=== PATIENT | female | born 1960 | race Two or more races ===

== ENCOUNTER → 2020-07-29 | Outpatient (CLI) | payer OTHER ==
[2020-07-29 10:12] LABS: Basophils # (auto) 0 10 ^3/uL (0-0.2); Basophils % (auto) 0.5 % (0.0-2.0); Eosinophils # (auto) 0.1 10 ^3/uL (0-0.8); Eosinophils % (auto) 1.8 % (0.0-7.0); Hemoglobin 13.9 g/dL (12.2-16.2); Lymphocytes % (auto) 29.7 % (10.0-50.0); Mean Corpuscular Hgb Conc. 33.8 g/dL (32.0-36.0); Mean Corpuscular Volume 91.7 fL (80.0-100.0); Monocytes # (auto) 0.4 10 ^3/uL (0-1.3); Monocytes % (auto) 5.8 % (0.0-12.0); Neutrophils # (auto) 4.3 10 ^3/uL (1.6-8.6); Neutrophils % (auto) 62.2 % (37.0-80.0); Nucleated Red Blood Cells % 0.1 %; Platelet Count (auto) 331 10^3/uL (140-450); Red Blood Cells 4.48 10^6/uL (4.0-5.20); Red Cell Distribution Width 13.2 % (11.8-14.3); White Blood Cell 6.8 10^3/uL (4.4-10.8)
[2020-07-29 10:24] LABS: Urine Bacteria NONE SEEN /hpf (None Seen); Urine Blood Negative /uL (Negative); Urine Specific Gravity 1.018 (1.001-1.035); Urine WBC 1 /hpf (0 - 5)
[2020-07-29 10:44] LABS: Albumin 3.9 g/dL (3.4-5.0); Calcium 9.8 mg/dL (8.5-10.1); Potassium 3.9 mmol/L (3.5-5.1)
[2020-07-29 10:48] LABS: BUN/Creatinine Ratio 13.8; Bilirubin, Total 0.5 mg/dL (0.2-1.0)
== END | disposition home or self-care (01) ==
LOC: LAB 09:37
PROVIDERS: ATTEND Student in an Organized Health Care Education/Training Program
DX: Z12.11 Encounter for screening for malignant neoplasm of colon (principal); R73.9 Hyperglycemia, unspecified; E55.9 Vitamin D deficiency, unspecified
CPT/HCPCS: 36415; 80053; 80061; 81001; 82306; 83036; 84443; 85025

== ENCOUNTER 2023-05-04 04:29 | Emergency (ER) | payer OTHER ==
[~2023-05-04] VITALS: Ht 160 cm; Wt 175.0 kg
[2023-05-04 05:35] VITALS: BP 139/73; PULSE 98; RESP 18; TEMP 98.6; O2SAT 99
[2023-05-04] MEDS ORDERED: LORazepam 0.5 MG TAB PO ONE (06:00)
== END 2023-05-04 07:06 | disposition home or self-care (01) ==
LOC: EDBD 04:29 → ER 04:29
DX: G47.00 Insomnia, unspecified (principal); F41.9 Anxiety disorder, unspecified; F32.9 Major depressive disorder, single episode, unspecified; Z90.710 Acquired absence of both cervix and uterus

== ENCOUNTER → 2023-05-24 | Outpatient (CLI) | payer OTHER ==
[2023-05-24 10:09] LABS: Basophils # (auto) 0.1 10 ^3/uL (0-0.2); Basophils % (auto) 0.8 % (0.0-2.0); Eosinophils # (auto) 0.1 10 ^3/uL (0-0.8); Eosinophils % (auto) 0.8 % (0.0-7.0); Hematocrit 41.4 % (36.0-46.0); Hemoglobin 13.8 g/dL (12.2-16.2); Lymphocytes # (auto) 1.9 10 ^3/uL (0.4-5.4); Lymphocytes % (auto) 27.9 % (10.0-50.0); Mean Corpuscular Hemoglobin 30.8 pg (28.0-32.0); Mean Corpuscular Hgb Conc. 33.3 g/dL (32.0-36.0); Mean Corpuscular Volume 92.4 fL (80.0-100.0); Monocytes # (auto) 0.5 10 ^3/uL (0-1.3); Monocytes % (auto) 7.9 % (0.0-12.0); Neutrophils # (auto) 4.2 10 ^3/uL (1.6-8.6); Neutrophils % (auto) 62.6 % (37.0-80.0); Nucleated Red Blood Cells % 0.1 %; Red Blood Cells 4.48 10^6/uL (4.0-5.20); Red Cell Distribution Width 13.9 % (11.8-14.3); White Blood Cell 6.8 10^3/uL (4.4-10.8)
[2023-05-24 10:31] LABS: Urine Bacteria NONE SEEN /hpf (None Seen); Urine Blood TRACE /uL (Negative); Urine Clarity Clear (Clear); Urine Color Yellow (Yellow); Urine Protein, UAD Negative (Negative); Urine Specific Gravity 1.018 (1.001-1.035); Urine Urobilinogen Normal (Negative); Urine WBC 1 /hpf (0 - 5)
[2023-05-24 10:40] LABS: Alanine Aminotransferase 19 U/L (7-40); Albumin 4.9 g/dL (3.2-4.8); Alkaline Phosphatase 123 U/L (46-116); Anion Gap 4 (5-15); Aspartate Aminotransferase 18 U/L (13-40); BUN/Creatinine Ratio 15.7 (10.0-20.0); Blood Urea Nitrogen 11 mg/dL (9-23); Calcium 10.6 mg/dL (8.5-10.1); Carbon Dioxide 29 mmol/L (20-30); Chloride 101 mmol/L (98-107); Cholesterol 190 mg/dL (< 200); Glucose 100 mg/dL (74-106); HDL Cholesterol 47 mg/dL (40-59); LDL Cholesterol 128 mg/dL (< 100); Potassium 4.1 mmol/L (3.5-5.1); Sodium 134 mmol/L (136-145); Triglycerides 70 mg/dL (< 150)
[2023-05-24 10:41] LABS: Bilirubin, Total 0.6 mg/dL (0.2-1.0); Total Protein 7.8 g/dL (5.7-8.2)
== END | disposition home or self-care (01) ==
LOC: LAB 09:42
PROVIDERS: ATTEND Student in an Organized Health Care Education/Training Program
DX: Z12.11 Encounter for screening for malignant neoplasm of colon (principal); I10 Essential (primary) hypertension; R73.9 Hyperglycemia, unspecified
CPT/HCPCS: 36415; 80053; 80061; 81001; 82274; 83036; 84443; 85025

== ENCOUNTER → 2023-11-06 | Outpatient (CLI) | payer OTHER ==
[2023-11-06 08:19] LABS: Urine Bacteria None Seen /hpf (None Seen)
[2023-11-06 09:08] LABS: Basophils # (auto) 0 10 ^3/uL (0-0.2); Basophils % (auto) 0.6 % (0.0-2.0); Eosinophils # (auto) 0.1 10 ^3/uL (0-0.8); Eosinophils % (auto) 0.9 % (0.0-7.0); Hematocrit 37.8 % (36.0-46.0); Hemoglobin 12.9 g/dL (12.2-16.2); Lymphocytes # (auto) 2.3 10 ^3/uL (0.4-5.4); Lymphocytes % (auto) 33.2 % (10.0-50.0); Mean Corpuscular Hemoglobin 31.4 pg (28.0-32.0); Mean Corpuscular Volume 92.3 fL (80.0-100.0); Monocytes # (auto) 0.5 10 ^3/uL (0-1.3); Monocytes % (auto) 6.6 % (0.0-12.0); Neutrophils % (auto) 58.7 % (37.0-80.0); Red Blood Cells 4.09 10^6/uL (4.0-5.20); Red Cell Distribution Width 13.2 % (11.8-14.3); White Blood Cell 6.9 10^3/uL (4.4-10.8)
[2023-11-06 09:33] LABS: Urine Blood Negative /uL (Negative); Urine Clarity Clear (Clear); Urine Color Light-Yellow (Yellow); Urine Hyaline Cast FEW /lpf (0 - 2); Urine Protein, UAD Negative (Negative); Urine Specific Gravity 1.022 (1.001-1.035); Urine Urobilinogen Normal (Negative); Urine WBC 7 /hpf (0 - 5); Urine pH 5.5 (5.0-9.0)
[2023-11-06 09:40] LABS: Alanine Aminotransferase 16 U/L (7-40); Albumin 4.4 g/dL (3.2-4.8); Alkaline Phosphatase 106 U/L (46-116); Anion Gap 5 (5-15); Aspartate Aminotransferase 11 U/L (13-40); BUN/Creatinine Ratio 18.9 (10.0-20.0); Bilirubin, Total 0.7 mg/dL (0.2-1.0); Blood Urea Nitrogen 14 mg/dL (9-23); Carbon Dioxide 27 mmol/L (20-30); Chloride 105 mmol/L (98-107); Glucose 97 mg/dL (74-106); Sodium 137 mmol/L (136-145); Total Protein 6.9 g/dL (5.7-8.2)
== END | disposition home or self-care (01) ==
LOC: LAB 08:11
PROVIDERS: ATTEND Student in an Organized Health Care Education/Training Program
DX: I10 Essential (primary) hypertension (principal)
CPT/HCPCS: 36415; 80053; 81001; 84443; 85025

== ENCOUNTER → 2024-01-01 | Outpatient (CLI) | payer OTHER ==
[2024-01-01 15:47] LABS: Alanine Aminotransferase 17 U/L (7-40); Alkaline Phosphatase 116 U/L (46-116); Anion Gap 5 (5-15); Aspartate Aminotransferase 14 U/L (13-40); BUN/Creatinine Ratio 11.1 (10.0-20.0); Bilirubin, Total 0.4 mg/dL (0.2-1.0); Blood Urea Nitrogen 7 mg/dL (9-23); Calcium 10.5 mg/dL (8.7-10.4); Carbon Dioxide 28 mmol/L (20-30); Chloride 97 mmol/L (98-107); Glucose 94 mg/dL (74-106); Potassium 4.2 mmol/L (3.5-5.1); Sodium 130 mmol/L (136-145); Total Protein 7.9 g/dL (5.7-8.2)
[2024-01-01 17:45] LABS: Follicle Stimulating Hormone 74.86 IU/L (SEE BELOW); Free T4 (Free Thyroxine) 1.45 ng/dL (0.89-1.76)
[2024-01-01 17:46] LABS: Leuteinizing Hormone 32.7 IU/L; Prolactin 3.87 ng/mL (2.8-29.2)
== END | disposition home or self-care (01) ==
LOC: LAB 13:58
PROVIDERS: ATTEND Obstetrics & Gynecology
DX: R87.1 Abnormal level of hormones in specimens from female genital organs (principal)
CPT/HCPCS: 36415; 80053; 82670; 83001; 83002; 84146; 84439; 84443

== ENCOUNTER 2024-01-23 05:50 | Emergency (ER) | payer OTHER ==
[~2024-01-23] VITALS: Ht 160 cm; Wt 66.8 kg
[2024-01-23 07:01] LABS: Basophils # (auto) 0.1 10 ^3/uL (0-0.2); Basophils % (auto) 0.8 % (0.0-2.0); Eosinophils # (auto) 0 10 ^3/uL (0-0.8); Eosinophils % (auto) 0.5 % (0.0-7.0); Hematocrit 38.3 % (36.0-46.0); Hemoglobin 13.3 g/dL (12.2-16.2); Lymphocytes # (auto) 1.8 10 ^3/uL (0.4-5.4); Lymphocytes % (auto) 25.9 % (10.0-50.0); Mean Corpuscular Hemoglobin 32.6 pg (28.0-32.0); Mean Corpuscular Hgb Conc. 34.7 g/dL (32.0-36.0); Mean Corpuscular Volume 93.9 fL (80.0-100.0); Monocytes # (auto) 0.6 10 ^3/uL (0-1.3); Monocytes % (auto) 8.1 % (0.0-12.0); Neutrophils # (auto) 4.6 10 ^3/uL (1.6-8.6); Neutrophils % (auto) 64.7 % (37.0-80.0); Nucleated Red Blood Cells % 0.1 %; Platelet Count (auto) 291 10^3/uL (140-450); Red Blood Cells 4.08 10^6/uL (4.0-5.20); Red Cell Distribution Width 13.3 % (11.8-14.3); White Blood Cell 7.1 10^3/uL (4.4-10.8)
[2024-01-23 07:19] LABS: Alanine Aminotransferase 12 U/L (7-40); Alkaline Phosphatase 104 U/L (46-116); Anion Gap 6 (5-15); BUN/Creatinine Ratio 14.1 (10.0-20.0); Blood Urea Nitrogen 9 mg/dL (9-23); Carbon Dioxide 25 mmol/L (20-31); Chloride 103 mmol/L (98-107); Glucose 93 mg/dL (74-106); Potassium 3.9 mmol/L (3.5-5.1); Sodium 134 mmol/L (136-145)
[2024-01-23 07:20] LABS: Albumin 4.4 g/dL (3.2-4.8); Aspartate Aminotransferase < 8 U/L (13-40); Bilirubin, Total 0.7 mg/dL (0.2-1.0); Total Protein 6.9 g/dL (5.7-8.2)
[2024-01-23 07:26] VITALS: PULSE 87; RESP 18; O2SAT 98
[2024-01-23 07:35] LABS: Urine Bacteria None Seen /hpf (None Seen)
[2024-01-23 07:53] LABS: Urine Blood Negative /uL (Negative); Urine Clarity Clear (Clear); Urine Color Light-Yellow (Yellow); Urine Protein, UAD Negative (Negative); Urine Specific Gravity 1.015 (1.001-1.035); Urine Urobilinogen Normal (Negative); Urine WBC 1 /hpf (0 - 5)
[2024-01-23 08:37] LABS: Lipase 40 U/L (12-53)
[2024-01-23 09:00] VITALS: BP 145/81; PULSE 101; RESP 14; O2SAT 98
[2024-01-23] MEDS ORDERED: MAGN100T6 OR (09:00)
== END 2024-01-23 09:00 | disposition home or self-care (01) ==
LOC: ER 05:50
DX: K59.00 Constipation, unspecified (principal); R10.9 Unspecified abdominal pain; F41.9 Anxiety disorder, unspecified; F32.A Depression, unspecified; Z90.710 Acquired absence of both cervix and uterus
CPT/HCPCS: 36415; 74176; 80053; 81001; 83690; 85025

== ENCOUNTER 2024-02-25 02:38 | Inpatient (IN) | payer OTHER ==
[~2024-02-25] VITALS: Ht 160 cm; Wt 65.0 kg
[~2024-02-25 02:38] MED LIST: MAGN100T6 OR
--- NOTE | 2024-02-25 03:02 | ED.PDOC ---
GI ASSESSMENT HPI Comments 63-year-old female who came to ER due to abdominal pain. Patient states she has been having issues with her abdomen. States that she feels like there is no digestion going on. Cant member the last time she had a bowel movement, possibly over a week. She denies any nausea or vomiting. Chief Complaint: Abdominal pain Time Seen by MD: 03:01 Primary Care Provider: HUNTLEY Reviewed Notes: Nurses Notes Allergies: Coded Allergies: NO KNOWN ALLERGIES (Unverified , 05/04/23) Home Meds Active Scripts Magnesium Citrate (MAGNESIUM CITRATE) 100 Mg Tab, 100 MG OR BID for 3 Days, #6 TAB Prov:KRISTY MENA MD 01/23/24 Information Source: Patient Mode of Arrival: Ambulatory Timing: Weeks Duration: Intermittent Prehospital treatment: None Quality: Aching Vomitus: None Stool: Impaction Severity: Moderate Recent: None Recent Hx of: Abdominal Surgery Pain Location: None Modifying Factors: Nothing Associated sign and symptoms: Constipation Past Medical History PAST MEDICAL HISTORY: Anxiety, Depression Surgical History: Appendectomy, Hysterectomy 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: 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 all 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 LEADER Hx Family History Family History: Reviewed,noncontributory to illness, Unknown Social History Smoker: Non-Smoker Alcohol: Denies ETOH Use Drugs: Denies Drug Use Lives In: Home Constitutional: denies: chills, diaphoresis, fatigue, fever, malaise, sweats, weakness, others EENTM: denies: blurred vision, double vision, ear bleeding, ear discharge, ear drainage, ear pain, ear ringing, eye pain, eye redness, hearing loss, mouth pain, mouth swelling, nasal discharge, nose bleeding, nose congestion, nose pain, photophobia, tearing, throat pain, throat swelling, voice changes, others Respiratory: denies: cough, hemoptysis, orthopnea, SOB at rest, shortness of breath, SOB with excertion, stridor, wheezing, others Cardiovascular: denies: chest pain, dizzy spells, diaphoresis, Dyspnea on exertion, edema, irregular heart beat, left arm pain, lightheadedness, palpitations, PND, syncope, others Gastrointestinal: reports: abdominal pain, constipated; denies: abdomen distended, blood streaked bowels, diarrhea, dysphagia, difficulty swallowing, hematemesis, melena, nausea, poor appetite, poor fluid intake, rectal bleeding, rectal pain, vomiting, others Genitourinary: denies: abnormal vagina bleeding, burning, dyspareunia, dysuria, flank pain, frequency, hematuria, incontinence, pain, , vagina discharge, urgency, others Neurological: denies: dizziness, fainting, headache, left sided numbness, left sided weakness, numbness, paresthesia, pre-existing deficit, right sided numbness, right sided weakness, seizure, speech problems, tingling, tremors, weakness, others Musculoskeletal: denies: back pain, gout, joint pain, joint swelling, muscle pain, muscle stiffness, neck pain, others Integumetry: denies: bruises, change in color, change in hair/nails, dryness, laceration, lesions, lumps, rash, wounds, others Allergic/Immunocompromised: denies: Difficulty Healing, Frequent Infections, Hives, Itching, others Hematologic/Lymphatic: denies: anemia, blood clots, easy bleeding, easy bruising, swollen glands, others Endocrine: denies: excessive hunger, excessive sweating, excessive thirst, excessive urination, flushing, intolerance to cold, intolerance to heat, unexplained weight gain, unexplained weight loss, others Psychiatric: denies: anxiety, bipolar disorder, depression, hopeless, panic disorder, schizophrenia, sleepless, suicidal, others Physical Exam General Appearance: Moderate Distress, Normal HEENT: Normal ENT Inspection, Pharynx Normal, TMs Normal Neck: Full Range of Motion, Non-Tender, Normal, Normal Inspection Respiratory: Chest Non-Tender, Lungs Clear, No Accessory Muscle Use, No Respiratory Distress, Normal Breath Sounds Cardiovascular: No Edema, No JVD, No Murmur, No Gallop, Normal Peripheral Pulses, Regular Rate/Rhythm Breast Exam: Deferred Gastrointestinal: No Organomegaly, Non Tender, No Pulsatile Mass, Normal Bowel Sounds, Soft Genitalia: Deferred Pelvic: Deferred Rectal: Deferred Extremities: No calf tenderness, Normal capillary refill, Normal inspection, N ormal range of motion, Non-tender, No pedal edema Musculoskeletal : Apperance: Normal Neurologic: Alert, 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 Was a procedure done?: No GI differential Dx Differential Diagnosis: Constipation, Diverticular disease, Esophagitis, Gastritis/PUD, Gastroenteritis, Inflammatory BD, UTI, Urolithiasis, Electrolyte Imbalance X-Ray, Labs, Meds, VS Vital Signs Date Time Temp Pulse Resp B/P (MAP) Pulse Ox O2 Delivery O2 Flow Rate FiO2 02/25/24 06:00 88 17 115/56 (75) 98 02/25/24 04:42 86 10 98 Room Air* 0 21 02/25/24 04:41 97.9 86 10 131/73 (92) 98 97.9 02/25/24 02:43 98.3 93 16 135/78 (97) 98 Lab Test 02/25/24 03:05 02/25/24 02:53 Range/Units White Blood Count 7.5 4.4-10.8 10^3/uL Red Blood Count 4.43 4.0-5.20 10^6/uL Hemoglobin 14.2 12.2-16.2 g/dL Hematocrit 40.9 36.0-46.0 % Mean Corpuscular Volume 92.4 80.0-100.0 fL Mean Corpuscular Hemoglobin 32.0 28.0-32.0 pg Mean Corpuscular Hemoglobin Concent 34.6 32.0-36.0 g/dL Red Cell Distribution Width 13.1 11.8-14.3 % Platelet Count 258 140-450 10^3/uL Mean Platelet Volume 8.2 6.9-10.8 fL Neutrophils (%) (Auto) 57.8 37.0-80.0 % Lymphocytes (%) (Auto) 33.8 10.0-50.0 % Monocytes (%) (Auto) 7.2 0.0-12.0 % Eosinophils (%) (Auto) 0.5 0.0-7.0 % Basophils (%) (Auto) 0.7 0.0-2.0 % Neutrophils # (Auto) 4.3 1.6-8.6 10 ^3/uL Lymphocytes # (Auto) 2.5 0.4-5.4 10 ^3/uL Monocytes # (Auto) 0.5 0-1.3 10 ^3/uL Eosinophils # (Auto) 0 0-0.8 10 ^3/uL Basophils # (Auto) 0.1 0-0.2 10 ^3/uL Nucleated Red Blood Cells 0.0 % Sodium Level 133 L 136-145 mmol/L Potassium Level 3.5 3.5-5.1 mmol/L Chloride Level 101 98-107 mmol/L Carbon Dioxide Level 25 20-31 mmol/L Anion Gap 7 5-15 Blood Urea Nitrogen < 5 L 9-23 mg/dL Creatinine 0.60 0.550-1.02 mg/dL Glomerular Filtration Rate Calc 101 >90 mL/min BUN/Creatinine Ratio 8.3 L 10.0-20.0 Serum Glucose 92 74-106 mg/dL Calcium Level 10.5 H 8.7-10.4 mg/dL Urine Color Light-yellow Yellow Urine Clarity Clear Clear Urine pH 6.0 5.0-9.0 Urine Specific [place] 1.008 1.001-1.035 Urine Protein Negative Negative Urine Ketones Trace Negative Urine Blood Negative Negative /uL Urine Nitrite Negative Negative Urine Bilirubin Negative Negative Urine Urobilinogen Normal Negative mg/dL Urine Leukocyte Esterase Trace Negative /uL Urine RBC <1 0 - 4 /hpf Urine WBC 2 0 - 5 /hpf Urine Squamous Epithelial Cells Few <5 /hpf Urine Bacteria None seen None Seen /hpf Urine Glucose Normal Normal mg/dL Patient alert. Complaining of abdominal pain. Vitals stable. Answering all questions. UA shows mild UTI. Calcium level is elevated. Continues to have abdominal pain. Reviewed her previous visit. Establish intravenous access. Was given fluids. Was given pain medication. Explained to the patient. Continue monitoring tech. Was given Rocephin. Was given Zofran. Time of 1ST Reevaluation: 02:57 Reevaluation 1ST: Unchanged Patient Education/Counseling: Diagnosis, Treatment Family Education/Counseling: No Family Present Departure 1 Departure Time of Disposition: 06:12 Impression: Primary Impression: Acute abdominal pain Additional Impressions: Hypercalcemia Urinary tract infection Qualified Codes: N30.00 - Acute cystitis without hematuria Constipation Qualified Codes: K59.01 - Slow transit constipation Disposition: ADMITTED INPATIENT Admit to: Med Surg Condition: Guarded Critical Care Note Critical Care Time?: No Stability Stability form required: No Heart Score Heart Score: Heart Score Response (Comments) Value History N/A 0 EKG N/A 0 Age N/A 0 Risk Factors N/A 0 Troponin N/A 0 Total 0 I personally scribed for HAM REYNOLDS MD ([email or web address]) on 02/25/24 at 03:02. Electronically submitted by Tereso Tobias ([email or web address]). HAM REYNOLDS MD Feb 25, 2024 03:02 IOANA STERN MD Feb 25, 2024 06:11
[2024-02-25 03:22] LABS: Urine Bacteria None Seen /hpf (None Seen)
[2024-02-25 03:25] LABS: Basophils # (auto) 0.1 10 ^3/uL (0-0.2); Basophils % (auto) 0.7 % (0.0-2.0); Eosinophils # (auto) 0 10 ^3/uL (0-0.8); Eosinophils % (auto) 0.5 % (0.0-7.0); Hematocrit 40.9 % (36.0-46.0); Hemoglobin 14.2 g/dL (12.2-16.2); Lymphocytes # (auto) 2.5 10 ^3/uL (0.4-5.4); Lymphocytes % (auto) 33.8 % (10.0-50.0); Mean Corpuscular Hgb Conc. 34.6 g/dL (32.0-36.0); Mean Corpuscular Volume 92.4 fL (80.0-100.0); Monocytes # (auto) 0.5 10 ^3/uL (0-1.3); Monocytes % (auto) 7.2 % (0.0-12.0); Neutrophils # (auto) 4.3 10 ^3/uL (1.6-8.6); Neutrophils % (auto) 57.8 % (37.0-80.0); Platelet Count (auto) 258 10^3/uL (140-450); Red Blood Cells 4.43 10^6/uL (4.0-5.20); Red Cell Distribution Width 13.1 % (11.8-14.3); White Blood Cell 7.5 10^3/uL (4.4-10.8)
[2024-02-25] MEDS: IOHEXOL 300 MG/ML 100ML BOTTLE IJ ONE (03:28)
[2024-02-25 03:29] LABS: Chloride 101 mmol/L (98-107); Potassium 3.5 mmol/L (3.5-5.1); Sodium 133 mmol/L (136-145)
[2024-02-25 03:30] LABS: Anion Gap 7 (5-15); Calcium 10.5 mg/dL (8.7-10.4); Carbon Dioxide 25 mmol/L (20-31)
[2024-02-25 03:35] LABS: Glucose 92 mg/dL (74-106)
[2024-02-25 04:13] LABS: BUN/Creatinine Ratio 8.3 (10.0-20.0); Blood Urea Nitrogen < 5 mg/dL (9-23)
[2024-02-25 04:15] LABS: Urine Blood Negative /uL (Negative); Urine Clarity Clear (Clear); Urine Color Light-Yellow (Yellow); Urine Protein, UAD Negative (Negative); Urine Specific Gravity 1.008 (1.001-1.035); Urine Urobilinogen Normal (Negative); Urine WBC 2 /hpf (0 - 5)
[2024-02-25 04:42] VITALS: PULSE 86; RESP 10; O2SAT 98
--- NOTE | 2024-02-25 05:58 | DVH ---
Examination: ABPL CLINICAL INDICATION: abdominal pain COMPARISON: None. CONTRAST USED: None. TECHNIQUE: A plain CT study of the abdomen and pelvis is performed. The examination was performed w ith [address] scan done according to ALARA (As Low as Reasonably Achievable). Multiplana r reconstructions were obtained. FINDINGS: CT ABDOMEN: Lung Base: The evaluation of lung bases demonstrates no focal infiltrates or pleural effusion. Line ar fibrotic band in the anterior basal segment of bilateral lower lobes. Unenhanced Liver: Normal size liver with normal attenuation. No obvious focal lesion in liver. The re is no intrahepatic biliary radicle dilatation. Gallbladder appears unremarkable. No intraluminal pathology. The common bile duct is not dilated. Unenhanced Pancreas: The pancreas is normal in size and shape. No focal lesion is seen within. The peripancreatic fat-planes are normal. Unenhanced Spleen: The spleen is normal in size and does not show any focal abnormality. Retroperitoneum: Both adrenal glands are normal in size and morphology in this unenhanced CT scan. There is no significant retroperitoneal lymphadenopathy. The kidneys are normal in size. No renal calculus or hydronephrosis. Perinephric spaces are clear. An exophytic 5.2 x 4.1 cm cortical cyst from the left kidney lower pole. No obvious septations or c alcification within. Small 6 mm cortical cyst from the right kidney lower pole with wall calcificati on. Vessels: Aorta, IVC and the mesenteric vessels cannot be commented in this unenhanced CT scan. Stomach and Bowel: The bowel loops are unremarkable. There is no ascites. Skeletal System: Mild osteopenia. Moderate degenerative changes in the sacroiliac, superolateral hi p joint and in the lumbar spine. Multilevel degenerative reduction in disc space and facet arthropat hy from L3-L4 through L5-S1 level. No acute osseous abnormality or focal osseous lesion. CT PELVIS: Appendix: Appendix is not discretely visualized. No features of acute appendicitis. Colon: [id number]-[id number] amount of fecal matter in the large bowel loops. Scattered diverticulosis of the descending and sigmoid colon without evidence of diverticulitis. Bladder: The urinary bladder is unremarkable. Post-hysterectomy status. No adnexal mass. No pelvic lymphadenopathy is identified. No abnormal fluid collection is seen. IMPRESSION: 1. No acute intra-abdominal pathology. No abdominal fat stranding or collection. 2. Appendix is not visualized. No features of acute appendicitis. Gallbladder and pancreas appear unremarkable. No evidence of renal or ureteric calculus. An exophytic 5.2 x 4.1 cm cortical cyst fr om the left kidney lower pole. No obvious septations or calcification within. Small 6 mm cortical c yst from the right kidney lower pole with wall calcification. Suggest further evaluation with postco ntrast scan. 3. Rcnqzpcy-nx-omnco amount of fecal matter in the large bowel loops. Scattered diverticulosis of t he descending and sigmoid colon without evidence of diverticulitis. Small bowel loops appear unremar kable. 4. Post-hysterectomy status. No adnexal mass. 5. Degenerative changes in the sacroiliac, superolateral hip joint and multilevel severe degenerativ e changes in the lumbar spine. No acute osseous abnormality or destructive bony pathology. Electronically Signed 02/25/2024 05:50 Jorge Hutchinson
[2024-02-25] MEDS: ONDANSETRON HCL 4 MG/2 ML VIAL IV ONE (06:42)
[2024-02-25] MEDS: MORPHINE SULFATE INJ 2 MG/ml SYRG IV ONE (06:42)
[2024-02-25] MEDS: SODIUM CHLORIDE 0.9% 1,000 ML IV ONE (06:43)
[2024-02-25] MEDS: cefTRIAXone 1GM/50ML D5W 50 ML IV ONE (06:46)
[2024-02-25 07:59] VITALS: PULSE 91; RESP 15; O2SAT 99
[2024-02-25] MEDS ORDERED: ACETAMINOPHEN 325 MG TAB PO PRN (10:00)
[2024-02-25] MEDS ORDERED: LORazepam 0.5 MG TAB PO PRN (10:00)
[2024-02-25] MEDS ORDERED: TEMAZEPAM 15 MG CAP PO PRN (10:00)
[2024-02-25] MEDS: LACTULOSE 10g/15ml SOLN 473ML PR ONE (10:00)
[2024-02-25] MEDS ORDERED: ONDANSETRON HCL 4 MG/2 ML VIAL IV PRN (10:00)
--- NOTE | 2024-02-25 10:57 | DVHHP2 ---
History of Present Illness Reason for Visit: abdominal pain History of Present Illness 63 yo female with multiple complaints over the course of month patient seems mildly confused with complaints in terms of when they started or occurred or if they are related most pressing matter is complaints of stomach pain and inability to properly digest food stating decreased appetite abdominal pain and distention and the inability to defecate for the past week patient states weakness will be admitted and managed for further evaluation Cardiovascular: HTN GI: Constipation, Diverticulosis Review of Systems Constitutional: Yes: Weakness, Malaise; No: Fever, Chills, Sweats, Other Eyes: No: Pain, Vision change, Conjunctivae inflammation, Eyelid inflammation, Other, Redness ENT: No: Ear pain, Ear discharge, Nose pain, Nose discharge, Nose congestion, Mouth pain, Mouth swelling, Throat pain, Throat swelling, Other Respiratory: No: Cough, Dry, Shortness of breath, SOB with excertion, Wheezing, Hemoptysis, Pleuritic Pain, Sputum, Wheezing, Other Cardiovascular: No: Chest Pain, Palpitations, Orthopnea, Paroxysmal Noc. Dyspnea, Edema, Lt Headedness, Other Gastrointestinal: Abdominal Pain, Constipation; No: Nausea, Vomiting, Diarrhea, Melena, Hematochezia, Other Genitourinary: No Dysuria, No Frequency, No Incontinence, No Hematuria, No Retention, No Other Musculoskeletal: No: other, neck pain, shoulder pain, arm pain, back pain, hand pain, leg pain, foot pain Skin: No: Rash, Lesions, Jaundice, Bruising, Other Neurological: Weakness; No: Numbness, Incoordination, Change in speech, Confusion, Seizures, Other Allergies: Coded Allergies: Codeine (Verified Allergy, Intermediate, throat numbness, 02/25/24) Sulfa Antibiotics (Verified Allergy, Intermediate, hives, 02/25/24) Iodine (Verified Allergy, Unknown, 02/25/24) IV contrast pt stated makes her not feel well Medications Current Medications Medications Dose Ordered Sig/Francisco Route Start Time Stop Time Status Last Admin Dose Admin Metronidazole 100 ml @ 100 mls/hr Q12HR IV 02/25/24 10:00 Sodium Chloride 2,000 ml @ 1,000 mls/hr Q2H IV 02/25/24 10:00 Lactulose 30 ml Q8HR PO 02/25/24 14:00 Lorazepam 0.5 mg Q6HP PRN PO 02/25/24 10:00 Al Hydrox/Mg Hydrox/Simethicone 30 ml Q6HP PRN PO 02/25/24 10:00 Acetaminophen 650 mg Q6HP PRN PO 02/25/24 10:00 Temazepam 15 mg QHSP PRN PO 02/25/24 10:00 Ondansetron HCl 4 mg Q4HP PRN IV 02/25/24 10:00 Exam Vital Signs Vital Signs Date Time Temp Pulse Resp B/P (MAP) Pulse Ox O2 Delivery O2 Flow Rate FiO2 02/25/24 09:30 89 18 115/58 (77) 98 02/25/24 07:59 Room Air* 0 21 02/25/24 07:30 98.3 98.3 General Appearance: Alert, Oriented X3 HEENT: Atraumatic, PERRLA Respiratory: Clear to auscultation, Normal air movement Cardiovascular: Regular rate, Normal S1, Normal S2 Abdominal: Other (decreased bowel sounds ) Extremities: No clubbing, No cyanosis Skin: No rashes, No breakdown Neuro: Normal gait, Normal speech Psych/Mental Status: Other (anxious sleep deprived ) Labs/Xrays Labs Test 02/25/24 03:05 02/25/24 02:53 Range/Units White Blood Count 7.5 4.4-10.8 10^3/uL Red Blood Count 4.43 4.0-5.20 10^6/uL Hemoglobin 14.2 12.2-16.2 g/dL Hematocrit 40.9 36.0-46.0 % Mean Corpuscular Volume 92.4 80.0-100.0 fL Mean Corpuscular Hemoglobin 32.0 28.0-32.0 pg Mean Corpuscular Hemoglobin Concent 34.6 32.0-36.0 g/dL Red Cell Distribution Width 13.1 11.8-14.3 % Platelet Count 258 140-450 10^3/uL Mean Platelet Volume 8.2 6.9-10.8 fL Neutrophils (%) (Auto) 57.8 37.0-80.0 % Lymphocytes (%) (Auto) 33.8 10.0-50.0 % Monocytes (%) (Auto) 7.2 0.0-12.0 % Eosinophils (%) (Auto) 0.5 0.0-7.0 % Basophils (%) (Auto) 0.7 0.0-2.0 % Neutrophils # (Auto) 4.3 1.6-8.6 10 ^3/uL Lymphocytes # (Auto) 2.5 0.4-5.4 10 ^3/uL Monocytes # (Auto) 0.5 0-1.3 10 ^3/uL Eosinophils # (Auto) 0 0-0.8 10 ^3/uL Basophils # (Auto) 0.1 0-0.2 10 ^3/uL Nucleated Red Blood Cells 0.0 % Sodium Level 133 L 136-145 mmol/L Potassium Level 3.5 3.5-5.1 mmol/L Chloride Level 101 98-107 mmol/L Carbon Dioxide Level 25 20-31 mmol/L Anion Gap 7 5-15 Blood Urea Nitrogen < 5 L 9-23 mg/dL Creatinine 0.60 0.550-1.02 mg/dL Glomerular Filtration Rate Calc 101 >90 mL/min BUN/Creatinine Ratio 8.3 L 10.0-20.0 Serum Glucose 92 74-106 mg/dL Calcium Level 10.5 H 8.7-10.4 mg/dL Urine Color Light-yellow Yellow Urine Clarity Clear Clear Urine pH 6.0 5.0-9.0 Urine Specific [place] 1.008 1.001-1.035 Urine Protein Negative Negative Urine Ketones Trace Negative Urine Blood Negative Negative /uL Urine Nitrite Negative Negative Urine Bilirubin Negative Negative Urine Urobilinogen Normal Negative mg/dL Urine Leukocyte Esterase Trace Negative /uL Urine RBC <1 0 - 4 /hpf Urine WBC 2 0 - 5 /hpf Urine Squamous Epithelial Cells Few <5 /hpf Urine Bacteria None seen None Seen /hpf Urine Glucose Normal Normal mg/dL Assessment/Plan Assessment/Plan Admit Med/Surg Abdominal Pain constipation CT scan Large fecal burden possible impaction lactulose q6h until liquid stools lactulose enema one time recommended patient refused hyponatremia noted IV fluids hydration appears nonsurgical at this time monitor for bowel movements and improvements suspected just impaction possible need for colonoscopy outpatient as patients age and lack of memory rule out cancer based possibilities outpatient UTI mild iv hydration IV abx Plan discussed with: Patient My Orders Orders - BRANDYN DUNHAM MD Procedure Category Date Status Time Metronidazole PHA 02/25/24 In Process 500mg/100ml (Flagyl 10:00 Sodium Chloride 0.9% PHA 02/25/24 In Process 10:00 Lactulose Oral PHA 02/25/24 In Process 14:00 Admit ADMIT 02/25/24 Transmitted 09:48 Code Status CODE 02/25/24 Transmitted 09:48 Vital Signs [facility] 02/25/24 In Process 09:48 Review Orders With [facility] 02/25/24 In Process Adm. 09:48 Lorazepam Tablet [facility] 02/25/24 In Process (Ativan Tablet) 10:00 Alum & Mag PHA 02/25/24 In Process Hydrox-Simethicone 10:00 Acetaminophen Tablet [facility] 02/25/24 In Process (Tylenol Tablet) 10:00 Temazepam (Restoril) [facility] 02/25/24 In Process 10:00 Notify Md Of Changes [facility] 02/25/24 In Process From Base 09:48 Advance Directive [facility] 02/25/24 In Process 09:48 Basic Metabolic Panel LAB 02/26/24 Verified 04:00 Complete Blood Count LAB 02/26/24 Verified 04:00 Patient Condition ORDERS 02/25/24 Transmitted 09:48 Allergies [facility] 02/25/24 In Process 09:48 Ondansetron Hcl [facility] 02/25/24 In Process (Zofran) 10:00 Notify Md Of Changes [facility] 02/25/24 In Process From Base 09:48 Problem List: (1) Insomnia (2) Anxiety (3) Abdominal pain (4) Hypercalcemia (5) Urinary tract infection (6) Acute abdominal pain (7) Constipation Date of Service: Feb 25, 2024 Billing Provider: BRANDYN DUNHAM MD Common Visit Codes: 80409-[id number] INP/OBS CARE (HIGH) BRANDYN DUNHAM MD Feb 25, 2024 10:57
[2024-02-25] MEDS: SODIUM CHLORIDE 0.9% 2,000 ML IV SCH (11:41)
[2024-02-25] MEDS: metroNIDAZOLE 500MG/100ML 100 ML IV SCH (11:41)
[2024-02-25] MEDS: LACTULOSE 20Gm/30ML SOLN PO SCH (14:15)
[2024-02-25 15:39] VITALS: PULSE 83; RESP 18; O2SAT 97
[2024-02-25 16:48] VITALS: BP 127/70; PULSE 83; RESP 18; TEMP 98.3; O2SAT 97
[2024-02-25] MEDS: SODIUM CHLORIDE 0.9% 1,000 ML IV SCH (20:00)
[2024-02-25] MEDS: MAALOX PLUS or MAALOX 30 ML PO PRN (20:45)
[2024-02-25 21:00] VITALS: BP 125/71; PULSE 86; RESP 18; TEMP 98.3; O2SAT 98
[2024-02-26 00:46] VITALS: BP 108/53; PULSE 71; RESP 17; TEMP 97.8; O2SAT 99
[2024-02-26 04:55] VITALS: BP 110/73; PULSE 90; RESP 18; TEMP 98; O2SAT 97
[2024-02-26 09:46] VITALS: BP 131/76; PULSE 89; RESP 17; TEMP 98; O2SAT 97
--- NOTE | 2024-02-26 11:36 | DVHPN2 ---
Subjective The patient seen and examined at bedside. Still complaint of abdominal pain. Reviewed: Care Plan, H&P, Labs, Medications, Previous Orders, Radiology Changes from previous H/P or p: No Changes Eyes: No Pain, No Vision change, No Conjunctivae inflammation, No Eyelid inflammation, No Other, No Redness ENT: No Ear pain, No Ear discharge, No Nose pain, No Nose discharge, No Nose congestion, No Mouth pain, No Mouth swelling, No Throat pain, No Throat swelling, No Other Cardiovascular: No Chest Pain, No Palpitations, No Orthopnea, No Paroxysmal Noc. Dyspnea, No Edema, No Lt Headedness, No Other Respiratory: No Cough, No Dry, No Shortness of breath, No SOB with excertion, No Wheezing, No Hemoptysis, No Pleuritic Pain, No Sputum, No Other Gastrointestinal: No Nausea, No Vomiting; Abdominal Pain; No Diarrhea; C onstipation; No Melena, No Hematochezia, No Other Genitourinary: No Dysuria, No Frequency, No Incontinence, No Hematuria, No Retention, No Other Musculoskeletal: No other, No neck pain, No shoulder pain, No arm pain, No back pain, No hand pain, No leg pain, No foot pain Skin: No Rash, No Lesions, No Jaundice, No Bruising, No Other Objective Vitals Vital Signs Date Time Temp Pulse Resp B/P (MAP) Pulse Ox O2 Delivery O2 Flow Rate FiO2 02/26/24 09:46 98.0 89 17 131/76 (94) 97 98.0 02/25/24 20:00 Room Air* 0 21 Intake/Output Intake and Output 02/26/24 07:00 Intake Total 4080 ml Balance 4080 ml Intake Oral 900 ml IV Total 3180 ml # Voids 4 # Bowel Movements 1 General Appearance: Alert, Oriented X3, Cooperative, No acute distress HEENT: Atraumatic, PERRLA, EOMI, Mucous membr. moist/pink Neck: Supple Lungs: Clear to auscultation, Normal air movement Cardiovascular: Regular rate, Normal S1, Normal S2, No murmurs, Gallops, Rubs Abdomen: Normal bowel sounds, Soft, No tenderness Neuro: Cranial nerves 3-12 NL Psych/Mental Status: Mental status NL Medications Current Medications Medications Dose Ordered Sig/Francisco Route Start Time Stop Time Status Last Admin Dose Admin Metronidazole 100 ml @ 100 mls/hr Q12HR IV 02/25/24 10:00 02/26/24 09:46 100 MLS/HR Sodium Chloride 2,000 ml @ 1,000 mls/hr Q2H IV 02/25/24 10:00 Hold 02/25/24 13:04 1,000 MLS/HR Lactulose 30 ml Q8HR PO 02/25/24 14:00 02/26/24 05:29 30 ML Lorazepam 0.5 mg Q6HP PRN PO 02/25/24 10:00 Al Hydrox/Mg Hydrox/Simethicone 30 ml Q6HP PRN PO 02/25/24 10:00 02/25/24 20:45 30 ML Acetaminophen 650 mg Q6HP PRN PO 02/25/24 10:00 Temazepam 15 mg QHSP PRN PO 02/25/24 10:00 Ondansetron HCl 4 mg Q4HP PRN IV 02/25/24 10:00 Sodium Chloride 1,000 ml @ 60 mls/hr [id number] IV 02/25/24 18:00 02/25/24 22:19 60 MLS/HR Laboratory Results Laboratory Tests 02/25/24 03:05 Urinalysis Test 02/25/24 02:53 Urine Color Light-yellow (Yellow) Urine Clarity Clear (Clear) Urine pH 6.0 (5.0-9.0) Urine Specific [place] 1.008 (1.001-1.035) Urine Protein Negative (Negative) Urine Ketones Trace (Negative) Urine Blood Negative /uL (Negative) Urine Nitrite Negative (Negative) Urine Bilirubin Negative (Negative) Urine Urobilinogen Normal mg/dL (Negative) Urine Leukocyte Esterase Trace /uL (Negative) Urine RBC <1 /hpf (0 - 4) Urine WBC 2 /hpf (0 - 5) Urine Squamous Epithelial Cells Few /hpf (<5) Urine Bacteria None seen /hpf (None Seen) Urine Glucose Normal mg/dL (Normal) Labs and/or images reviewed: Labs reviewed by me Assessment/Plan Assessment/Plan Abdominal Pain constipation CT scan Large fecal burden possible impaction UTI mild Continuing current management. Continuing lactulose every 6 hours until liquid stool from. Continuing IV fluid and continuing to monitor sodium Continuing with IV antibiotic Plan discussed with: Patient Date of Service: Feb 26, 2024 Billing Provider: TATIANNA WETZEL MD Common Visit Codes: [id number] INP/OBS CARE(HIGH) TAITANNA WETZEL MD Feb 26, 2024 11:36
[2024-02-26 13:30] VITALS: BP 140/69; PULSE 92; RESP 17; TEMP 97.8; O2SAT 96
[2024-02-26 17:00] VITALS: BP 136/71; PULSE 77; RESP 17; TEMP 97.6; O2SAT 99
[2024-02-26 21:00] VITALS: BP 135/87; PULSE 96; RESP 17; TEMP 97.4; O2SAT 96
[2024-02-27 01:00] VITALS: BP 135/81; PULSE 100; RESP 18; TEMP 97.6; O2SAT 97
[2024-02-27 05:00] VITALS: BP 135/78; PULSE 91; RESP 17; TEMP 98.5; O2SAT 94
[2024-02-27 08:48] VITALS: BP 134/82; PULSE 92; RESP 18; TEMP 97.9; O2SAT 98
[2024-02-27 13:00] VITALS: BP 128/78; PULSE 90; RESP 18; TEMP 97.9; O2SAT 97
--- NOTE | 2024-02-27 13:50 | DVHPN2 ---
Reviewed: Care Plan, H&P, Labs, Medications, Previous Orders Changes from previous H/P or p: No Changes General: Per HPI Eyes: No Pain, No Vision change, No Conjunctivae inflammation, No Eyelid inflammation, No Other, No Redness ENT: No Ear pain, No Ear discharge, No Nose pain, No Nose discharge, No Nose congestion, No Mouth pain, No Mouth swelling, No Throat pain, No Throat swelling, No Other Cardiovascular: No Chest Pain, No Palpitations, No Orthopnea, No Paroxysmal Noc. Dyspnea, No Edema, No Lt Headedness, No Other Respiratory: No Cough, No Dry, No Shortness of breath, No SOB with excertion, No Wheezing, No Hemoptysis, No Pleuritic Pain, No Sputum, No Other Gastrointestinal: No Nausea, No Vomiting; Abdominal Pain; No Diarrhea; C onstipation; No Melena, No Hematochezia, No Other Genitourinary: No Dysuria, No Frequency, No Incontinence, No Hematuria, No Retention, No Other Musculoskeletal: No other, No neck pain, No shoulder pain, No arm pain, No back pain, No hand pain, No leg pain, No foot pain Skin: No Rash, No Lesions, No Jaundice, No Bruising, No Other Objective Vitals Vital Signs Date Time Temp Pulse Resp B/P (MAP) Pulse Ox O2 Delivery O2 Flow Rate FiO2 02/27/24 08:48 97.9 92 18 134/82 (99) 98 97.9 02/27/24 08:00 Room Air* 0 21 Intake/Output Intake and Output 02/27/24 07:00 Intake Total 1700 ml Balance 1700 ml Intake Oral 900 ml IV Total 800 ml # Voids 5 Medications Current Medications Medications Dose Ordered Sig/Francisco Route Start Time Stop Time Status Last Admin Dose Admin Metronidazole 100 ml @ 100 mls/hr Q12HR IV 02/25/24 10:00 02/27/24 09:20 100 MLS/HR Sodium Chloride 2,000 ml @ 1,000 mls/hr Q2H IV 02/25/24 10:00 Hold 02/25/24 13:04 1,000 MLS/HR Lactulose 30 ml Q8HR PO 02/25/24 14:00 02/27/24 06:33 30 ML Lorazepam 0.5 mg Q6HP PRN PO 11/10/24 10:00 Al Hydrox/Mg Hydrox/Simethicone 30 ml Q6HP PRN PO 02/25/24 10:00 02/25/24 20:45 30 ML Acetaminophen 650 mg Q6HP PRN PO 02/25/24 10:00 Temazepam 15 mg QHSP PRN PO 02/25/24 10:00 Ondansetron HCl 4 mg Q4HP PRN IV 02/25/24 10:00 Sodium Chloride 1,000 ml @ 60 mls/hr [id number] IV 02/25/24 18:00 02/27/24 06:34 60 MLS/HR Laboratory Results Laboratory Tests 02/25/24 03:05 Urinalysis Test 02/25/24 02:53 Urine Color Light-yellow (Yellow) Urine Clarity Clear (Clear) Urine pH 6.0 (5.0-9.0) Urine Specific [place] 1.008 (1.001-1.035) Urine Protein Negative (Negative) Urine Ketones Trace (Negative) Urine Blood Negative /uL (Negative) Urine Nitrite Negative (Negative) Urine Bilirubin Negative (Negative) Urine Urobilinogen Normal mg/dL (Negative) Urine Leukocyte Esterase Trace /uL (Negative) Urine RBC <1 /hpf (0 - 4) Urine WBC 2 /hpf (0 - 5) Urine Squamous Epithelial Cells Few /hpf (<5) Urine Bacteria None seen /hpf (None Seen) Urine Glucose Normal mg/dL (Normal) Assessment/Plan Assessment/Plan Abdominal Pain constipation CT scan Large fecal burden possible impaction Diverticulosis, acute Anxiety Constipation plan continue with lactulose q6h until liquid stools lactulose enema one time recommended patient refused hyponatremia noted IV fluids hydration appears nonsurgical at this time monitor for bowel movements and improvements suspected just impaction possible need for colonoscopy outpatient as patients age and lack of memory rule out cancer based possibilities outpatient Plan discussed with: Patient Date of Service: Feb 27, 2024 Billing Provider: YVETTE SOLIS DO Common Visit Codes: [id number] INP/OBS CARE(HIGH) YVETTE SOLIS DO Feb 27, 2024 13:50
[2024-02-27] MEDS: MILK OF MAGNESIA 30ML SUSP PO ONE (16:42)
[2024-02-27 16:46] VITALS: BP 134/80; PULSE 100; RESP 18; TEMP 97.9; O2SAT 98
--- NOTE | 2024-02-27 19:43 | DVHINCON2 ---
Date of service: Feb 27, 2024 Referring Physician Adeel Melendez Reason for Consultation Abd pain History of Present Illness 63 yo female with multiple complaints over the course of month including weakness and complaints of stomach pain and inability to properly digest food stating decreased appetite abdominal pain and distention and the inability to defecate for the past week. Past Medical History HTN Anxiety and Depression Past Surgical History Hysterectomy Appendectomy Family History: FH: cancer G8 MOTHER Allergies: Coded Allergies: Codeine (Verified Allergy, Intermediate, throat numbness, 02/25/24) Sulfa Antibiotics (Verified Allergy, Intermediate, hives, 02/25/24) Iodine (Verified Allergy, Unknown, 02/25/24) IV contrast pt stated makes her not feel well Vital Signs Vital Signs Date Time Temp Pulse Resp B/P (MAP) Pulse Ox O2 Delivery O2 Flow Rate FiO2 02/27/24 16:46 97.9 100 18 134/80 (98) 98 97.9 02/27/24 08:00 Room Air* 0 21 Labs/Diagnostic Data Labs Test 02/25/24 03:05 02/25/24 02:53 Range/Units White Blood Count 7.5 4.4-10.8 10^3/uL Red Blood Count 4.43 4.0-5.20 10^6/uL Hemoglobin 14.2 12.2-16.2 g/dL Hematocrit 40.9 36.0-46.0 % Mean Corpuscular Volume 92.4 80.0-100.0 fL Mean Corpuscular Hemoglobin 32.0 28.0-32.0 pg Mean Corpuscular Hemoglobin Concent 34.6 32.0-36.0 g/dL Red Cell Distribution Width 13.1 11.8-14.3 % Platelet Count 258 140-450 10^3/uL Mean Platelet Volume 8.2 6.9-10.8 fL Neutrophils (%) (Auto) 57.8 37.0-80.0 % Lymphocytes (%) (Auto) 33.8 10.0-50.0 % Monocytes (%) (Auto) 7.2 0.0-12.0 % Eosinophils (%) (Auto) 0.5 0.0-7.0 % Basophils (%) (Auto) 0.7 0.0-2.0 % Neutrophils # (Auto) 4.3 1.6-8.6 10 ^3/uL Lymphocytes # (Auto) 2.5 0.4-5.4 10 ^3/uL Monocytes # (Auto) 0.5 0-1.3 10 ^3/uL Eosinophils # (Auto) 0 0-0.8 10 ^3/uL Basophils # (Auto) 0.1 0-0.2 10 ^3/uL Nucleated Red Blood Cells 0.0 % Sodium Level 133 L 136-145 mmol/L Potassium Level 3.5 3.5-5.1 mmol/L Chloride Level 101 98-107 mmol/L Carbon Dioxide Level 25 20-31 mmol/L Anion Gap 7 5-15 Blood Urea Nitrogen < 5 L 9-23 mg/dL Creatinine 0.60 0.550-1.02 mg/dL Glomerular Filtration Rate Calc 101 >90 mL/min BUN/Creatinine Ratio 8.3 L 10.0-20.0 Serum Glucose 92 74-106 mg/dL Calcium Level 10.5 H 8.7-10.4 mg/dL Urine Color Light-yellow Yellow Urine Clarity Clear Clear Urine pH 6.0 5.0-9.0 Urine Specific [place] 1.008 1.001-1.035 Urine Protein Negative Negative Urine Ketones Trace Negative Urine Blood Negative Negative /uL Urine Nitrite Negative Negative Urine Bilirubin Negative Negative Urine Urobilinogen Normal Negative mg/dL Urine Leukocyte Esterase Trace Negative /uL Urine RBC <1 0 - 4 /hpf Urine WBC 2 0 - 5 /hpf Urine Squamous Epithelial Cells Few <5 /hpf Urine Bacteria None seen None Seen /hpf Urine Glucose Normal Normal mg/dL ABD PELVIC CT SCAN IMPRESSION: 1. No acute intra-abdominal pathology. No abdominal fat stranding or col lection. 2. Appendix is not visualized. No features of acute appendicitis. Gallbladder and pancreas appear unremarkable. No evidence of renal or ureteric calculus. An exophytic 5.2 x 4.1 cm cortical cyst from the left kidney lower pole. No obvious septations or calcification within. Small 6 mm cortical cyst from the right kidney lower pole with wall calcification. Suggest further evaluation with postcontrast scan. 3. Iluvwzng-qt-ynbav amount of fecal matter in the large bowel loops. Scattered diverticulosis of the descending and sigmoid colon without evidence of diverticulitis. Small bowel loops appear unremarkable. 4. Post-hysterectomy status. No adnexal mass. 5. Degenerative changes in the sacroiliac, superolateral hip joint and multilevel severe degenerative changes in the lumbar spine. No acute osseous abnormality or destructive bony pathology. Problems(with codes): (1) Diverticulosis (2) Abdominal pain (3) Anxiety (4) Constipation Plan/Recommendation PLAN Stool softeners Miralax; Lactulose PPI; Zofran Will discuss elective panendoscopy with pt possibly as outpt Plan discussed with: Other (None) RANDEE THOMAS MD Feb 27, 2024 19:43
[2024-02-27 21:00] VITALS: BP 121/70; PULSE 88; RESP 18; TEMP 97.9; O2SAT 96
[2024-02-27] MEDS: DOCUSATE SOD 100 MG CAP PO SCH (22:48)
[2024-02-28 01:00] VITALS: BP 140/81; PULSE 104; RESP 18; TEMP 97.6; O2SAT 96
[2024-02-28 05:00] VITALS: BP 127/66; PULSE 89; RESP 18; TEMP 97.9; O2SAT 98
[2024-02-28] MEDS: PANTOPRAZOLE 40 MG TAB PO SCH ×2 (06:35→16:38)
[2024-02-28] MEDS: POLYETHYLENE GLYCOL 17 GM PWDR PO SCH (09:27)
[2024-02-28] MEDS ORDERED: SODIUM CHLORIDE LOCK 10 ML ONE (11:41)
[2024-02-28 11:53] LABS: INR 1.13 (0.9-1.15); Partial Thromboplastin Time 29.1 SEC (24.5-34.5); Prothrombin Time 11.9 sec (9.3-11.8)
--- NOTE | 2024-02-28 12:49 | DVHDS2 ---
Discharge Summary Date of Admission Feb 25, 2024 at 09:48 Date of Discharge: Feb 28, 2024 Labs/Diagnostic Data: Laboratory Results Test 02/28/24 11:00 02/25/24 03:05 02/25/24 02:53 Prothrombin Time 11.9 sec (9.3-11.8) Prothrombin Time INR 1.13 (0.9-1.15) Activated Partial Thromboplast Time 29.1 SEC (24.5-34.5) White Blood Count 7.5 10^3/uL (4.4-10.8) Red Blood Count 4.43 10^6/uL (4.0-5.20) Hemoglobin 14.2 g/dL (12.2-16.2) Hematocrit 40.9 % (36.0-46.0) Mean Corpuscular Volume 92.4 fL (80.0-100.0) Mean Corpuscular Hemoglobin 32.0 pg (28.0-32.0) Mean Corpuscular Hemoglobin Concent 34.6 g/dL (32.0-36.0) Red Cell Distribution Width 13.1 % (11.8-14.3) Platelet Count 258 10^3/uL (140-450) Mean Platelet Volume 8.2 fL (6.9-10.8) Neutrophils (%) (Auto) 57.8 % (37.0-80.0) Lymphocytes (%) (Auto) 33.8 % (10.0-50.0) Monocytes (%) (Auto) 7.2 % (0.0-12.0) Eosinophils (%) (Auto) 0.5 % (0.0-7.0) Basophils (%) (Auto) 0.7 % (0.0-2.0) Neutrophils # (Auto) 4.3 10 ^3/uL (1.6-8.6) Lymphocytes # (Auto) 2.5 10 ^3/uL (0.4-5.4) Monocytes # (Auto) 0.5 10 ^3/uL (0-1.3) Eosinophils # (Auto) 0 10 ^3/uL (0-0.8) Basophils # (Auto) 0.1 10 ^3/uL (0-0.2) Nucleated Red Blood Cells 0.0 % Sodium Level 133 mmol/L (136-145) Potassium Level 3.5 mmol/L (3.5-5.1) Chloride Level 101 mmol/L (98-107) Carbon Dioxide Level 25 mmol/L (20-31) Anion Gap 7 (5-15) Blood Urea Nitrogen < 5 mg/dL (9-23) Creatinine 0.60 mg/dL (0.550-1.02) Glomerular Filtration Rate Calc 101 mL/min (>90) BUN/Creatinine Ratio 8.3 (10.0-20.0) Serum Glucose 92 mg/dL (74-106) Calcium Level 10.5 mg/dL (8.7-10.4) Urine Color Light-yellow (Yellow) Urine Clarity Clear (Clear) Urine pH 6.0 (5.0-9.0) Urine Specific [place] 1.008 (1.001-1.035) Urine Protein Negative (Negative) Urine Ketones Trace (Negative) Urine Blood Negative /uL (Negative) Urine Nitrite Negative (Negative) Urine Bilirubin Negative (Negative) Urine Urobilinogen Normal mg/dL (Negative) Urine Leukocyte Esterase Trace /uL (Negative) Urine RBC <1 /hpf (0 - 4) Urine WBC 2 /hpf (0 - 5) Urine Squamous Epithelial Cells Few /hpf (<5) Urine Bacteria None seen /hpf (None Seen) Urine Glucose Normal mg/dL (Normal) Other Laboratory Tests 02/25/24 03:05 Brief Hx & Hospital Course: 63 yo female with multiple complaints over the course of month patient seems mildly confused with complaints in terms of when they started or occurred or if they are related most pressing matter is complaints of stomach pain and inability to properly digest food stating decreased appetite abdominal pain and distention and the inability to defecate for the past week patient states weakness will be admitted and managed for further evaluation Abdominal Pain constipation CT scan Large fecal burden possible impaction Diverticulosis, acute Anxiety Constipation plan continue with lactulose q6h until liquid stools lactulose enema one time recommended patient refused hyponatremia noted IV fluids hydration appears nonsurgical at this time monitor for bowel movements and improvements suspected just impaction possible need for colonoscopy outpatient discharged to home Condition at Discharge: Fair Final Diagnosis/Problems List see above Discharge Disposition: Home Discharge Statement: "Patient was advised to return to the ER or call 911 if any headaches, dizziness, shortness of breath, chest pain, abdominal pain, bleeding, fevers, or worsening of medical condition. Patient was counseled about treatment plan, medications, possible side effects, patientverbalized understanding. All questions were answered to the best of my ability. This discharge took greater then 30 minutes in planning, reviewing documentation, counseling the patient, and discussing with other team members." ASSESSMENT ASSESSMENT Assessment Date of Service: Feb 28, 2024 Billing Provider: YEVTTE SOLIS DO Common Visit Codes: [id number] INP/OBS CARE(HIGH) YVETTE SOLIS DO Feb 28, 2024 12:49
[2024-02-28 13:20] VITALS: PULSE 108; RESP 18; O2SAT 100
[2024-02-28] MEDS: LIDOCAINE VISCOUS 2% 15ML UD ONE (13:20)
[2024-02-28] MEDS: MIDAZOLAM HCL 5 MG/ML-1ML VIAL ONE (13:24)
[2024-02-28] MEDS: diphenhdrAMINE HCL 50 MG/1 ML VL ONE (13:24)
[2024-02-28] MEDS: fentaNYL CITRATE 100 MCG/2 ML VL ONE (13:24)
[2024-02-28 13:37] VITALS: RESP 17; O2SAT 100
--- NOTE | 2024-02-28 13:39 | DVHOP2 ---
Operative Report DATE OF OPERATION: 02/28/24 PROCEDURE: Upper Endoscopy with biopsy. PREOPERATIVE INDICATION: The patient is a 63 -year-old female undergoing endoscopy for postprandial dyspepsia and bloating POSTOPERATIVE DIAGNOSES: 1. 2 cm sliding-type hiatal hernia with grade B linear erosive esophagitis 2. Minimal gastritis and [id number] duodenitis PROCEDURE PERFORMED BY: Randee Olviera GI NURSE: [place] SCOPE: Olympus videoendoscope. ASA CLASS: PREOPERATIVE MEDICATIONS: Versed 4 mg, Fentanyl 100 mcg, Benadryl 50 mg I administered moderate sedation throughout this _9_ minutes procedure. An independent trained observer pushed medications at my direction, and monitored the patient's level of consciousness and physiological status throughout. PROCEDURE IN DETAIL: After obtaining an informed consent, the patient was placed on left lateral decubitus position. The patient was then sedated with the above medications. A bite block was placed between her teeth. The endoscope was then passed through the oropharynx, into the esophagus, and through the stomach and pylorus up to the second and third part of the duodenum. The endoscope was then withdrawn. The 2nd and 3rd part of the duodenum were normal. Duodenal bulb and postbulbar area showed [id number] duodenitis. There was some hyperemia and superficial erosions. The pre-pyloric area antrum and body showed minimal gastritis. Duodenal and gastric biopsies were obtained. On retroflexion the fundus cardia and angularis were normal. The endoscope was then withdrawn into the distal esophagus where she had a 2 cm sliding-type hiatal hernia. Patient had grade B linear erosive esophagitis with esophageal ulcers extending into the distal 3-5 cm of the esophagus The remaining distal and proximal esophagus and oropharynx were unremarkable The patient tolerated the procedure well without difficulty. COMPLICATIONS : None SPECIMENS: Duodenal biopsies Gastric biopsies GE junction biopsies DISPOSITION: Transfer back to the floor Stable PLAN: 1. Await for biopsy result 2. Will place pt on Protonix 40 mg p.o. daily 3. Resume soft mechanical diet 4. Outpatient follow up with me in 4-6 weeks to review results discuss further management and arrange outpatient elective colonoscopy RANDEE OLIVERA MD Feb 28, 2024 13:39
[2024-02-28 21:00] VITALS: BP 128/78; PULSE 102; RESP 20; TEMP 98.1; O2SAT 98
[2024-02-29 01:00] VITALS: BP 131/69; PULSE 84; RESP 18; TEMP 97.8; O2SAT 96
[2024-02-29 05:00] VITALS: BP 135/79; PULSE 103; RESP 21; TEMP 97.5; O2SAT 98
[2024-02-29 08:00] VITALS: PULSE 92; RESP 21
[2024-02-29 09:00] VITALS: BP 137/75; PULSE 92; RESP 21; TEMP 97.7; O2SAT 96
--- NOTE | 2024-02-29 15:30 | DVHPN2 ---
Reviewed: Care Plan, H&P, Labs, Medications, Previous Orders, Radiology Changes from previous H/P or p: No Changes General: Per HPI Eyes: No Pain, No Vision change, No Conjunctivae inflammation, No Eyelid inflammation, No Other, No Redness ENT: No Ear pain, No Ear discharge, No Nose pain, No Nose discharge, No Nose congestion, No Mouth pain, No Mouth swelling, No Throat pain, No Throat swelling, No Other Cardiovascular: No Chest Pain, No Palpitations, No Orthopnea, No Paroxysmal Noc. Dyspnea, No Edema, No Lt Headedness, No Other Respiratory: No Cough, No Dry, No Shortness of breath, No SOB with excertion, No Wheezing, No Hemoptysis, No Pleuritic Pain, No Sputum, No Other Gastrointestinal: No Nausea, No Vomiting; Abdominal Pain; No Diarrhea; C onstipation; No Melena, No Hematochezia, No Other Genitourinary: No Dysuria, No Frequency, No Incontinence, No Hematuria, No Retention, No Other Musculoskeletal: No other, No neck pain, No shoulder pain, No arm pain, No back pain, No hand pain, No leg pain, No foot pain Skin: No Rash, No Lesions, No Jaundice, No Bruising, No Other Objective Vitals Vital Signs Date Time Temp Pulse Resp B/P (MAP) Pulse Ox O2 Delivery O2 Flow Rate FiO2 02/29/24 09:00 97.7 92 21 137/75 (95) 96 97.7 02/29/24 08:00 Room Air* 0 21 Intake/Output Intake and Output 02/29/24 07:00 Intake Total 2820 ml Balance 2820 ml Intake Oral 2695 ml IV Total 125 ml # Voids 11 # Bowel Movements 3 General Appearance: Alert, Oriented X3, Cooperative, No acute distress HEENT: Atraumatic, PERRLA, EOMI, Mucous membr. moist/pink Neck: Supple Lungs: Clear to auscultation, Normal air movement Cardiovascular: Regular rate, Normal S1, Normal S2, No murmurs, Gallops, Rubs Abdomen: Normal bowel sounds, Soft, No tenderness Neuro: Cranial nerves 3-12 NL Psych/Mental Status: Mental status NL Medications Current Medications Medications Dose Ordered Sig/Francisco Route Start Time Stop Time Status Last Admin Dose Admin Metronidazole 100 ml @ 100 mls/hr Q12HR IV 02/25/24 10:00 02/28/24 21:50 100 MLS/HR Sodium Chloride 2,000 ml @ 1,000 mls/hr Q2H IV 02/25/24 10:00 Hold 02/25/24 13:04 1,000 MLS/HR Lactulose 30 ml Q8HR PO 02/25/24 14:00 02/28/24 21:50 30 ML Lorazepam 0.5 mg Q6HP PRN PO 02/25/24 10:00 Al Hydrox/Mg Hydrox/Simethicone 30 ml Q6HP PRN PO 02/25/24 10:00 02/25/24 20:45 30 ML Acetaminophen 650 mg Q6HP PRN PO 02/25/24 10:00 Temazepam 15 mg QHSP PRN PO 02/25/24 10:00 Ondansetron HCl 4 mg Q4HP PRN IV 02/25/24 10:00 Sodium Chloride 1,000 ml @ 60 mls/hr [id number] IV 02/25/24 18:00 02/29/24 04:25 60 MLS/HR Pantoprazole Sodium 40 mg DAILY@0600 PO 02/28/24 06:00 Polyethylene Glycol 17 gm DAILY PO 02/28/24 10:00 Docusate Sodium 100 mg BID PO 02/27/24 22:00 02/27/24 22:48 100 MG Pantoprazole Sodium 40 mg BID@0600,1700 PO 02/28/24 17:00 02/28/24 16:38 40 MG Laboratory Results Laboratory Tests 02/25/24 03:05 Urinalysis Test 02/25/24 02:53 Urine Color Light-yellow (Yellow) Urine Clarity Clear (Clear) Urine pH 6.0 (5.0-9.0) Urine Specific [place] 1.008 (1.001-1.035) Urine Protein Negative (Negative) Urine Ketones Trace (Negative) Urine Blood Negative /uL (Negative) Urine Nitrite Negative (Negative) Urine Bilirubin Negative (Negative) Urine Urobilinogen Normal mg/dL (Negative) Urine Leukocyte Esterase Trace /uL (Negative) Urine RBC <1 /hpf (0 - 4) Urine WBC 2 /hpf (0 - 5) Urine Squamous Epithelial Cells Few /hpf (<5) Urine Bacteria None seen /hpf (None Seen) Urine Glucose Normal mg/dL (Normal) Assessment/Plan Assessment/Plan 63 yo female with multiple complaints over the course of month patient seems mildly confused with complaints in terms of when they started or occurred or if they are related most pressing matter is complaints of stomach pain and inability to properly digest food stating decreased appetite abdominal pain and distention and the inability to defecate for the past week patient states weakness will be admitted and managed for further evaluation Abdominal Pain constipation CT scan Large fecal burden possible impaction Diverticulosis, acute Anxiety Constipation plan continue with lactulose q6h until liquid stools lactulose enema one time recommended patient refused hyponatremia noted IV fluids hydration appears nonsurgical at this time monitor for bowel movements and improvements suspected just impaction possible need for colonoscopy outpatient discharged to home awaiting for transportation Plan discussed with: Patient Date of Service: Feb 29, 2024 Billing Provider: YVETTE SOLIS DO Common Visit Codes: [id number] INP/OBS CARE(HIGH) YVETTE SOLIS DO Feb 29, 2024 15:30
--- NOTE | 2024-02-29 17:55 | MEDREC ---
[facility] Intervention Section I [facility] Intervention: Review courses of therapy (PLEASE CONSIDER DISCONTINUE ANTIBIOTIC IF THERE IS NO CONCERN FOR INFECTION) JULIO CASTLE [facility] Feb 29, 2024 17:55
--- NOTE | 2024-02-29 22:25 | DVHPN2 ---
Progress Note - Dictate Date Seen: Feb 29, 2024 Medical Necessity Reason Pt with a Central, PICC or Fol: No Subjective Patient is resting quietly She appears depressed Patient states she does not want to eat as nothing moves vital signs Vital Sign Date Time Temp Pulse Resp B/P (MAP) Pulse Ox O2 Delivery O2 Flow Rate FiO2 02/29/24 09:00 97.7 92 21 137/75 (95) 96 97.7 02/29/24 08:00 Room Air* 0 21 Total Intake and Output 02/28/24 02/28/24 02/29/24 15:00 23:00 07:00 Intake Total 125 ml 1500 ml 1195 ml Balance 125 ml 1500 ml 1195 ml medications Current Medications Medications Dose Ordered Sig/Francisco Route Start Time Stop Time Status Last Admin Dose Admin Metronidazole 100 ml @ 100 mls/hr Q12HR IV 02/25/24 10:00 02/28/24 21:50 100 MLS/HR Sodium Chloride 2,000 ml @ 1,000 mls/hr Q2H IV 02/25/24 10:00 Hold 02/25/24 13:04 1,000 MLS/HR Lactulose 30 ml Q8HR PO 02/25/24 14:00 02/28/24 21:50 30 ML Lorazepam 0.5 mg Q6HP PRN PO 02/25/24 10:00 Al Hydrox/Mg Hydrox/Simethicone 30 ml Q6HP PRN PO 02/25/24 10:00 02/25/24 20:45 30 ML Acetaminophen 650 mg Q6HP PRN PO 02/25/24 10:00 Temazepam 15 mg QHSP PRN PO 02/25/24 10:00 Ondansetron HCl 4 mg Q4HP PRN IV 02/25/24 10:00 Sodium Chloride 1,000 ml @ 60 mls/hr [id number] IV 02/25/24 18:00 02/29/24 04:25 60 MLS/HR Pantoprazole Sodium 40 mg DAILY@0600 PO 02/28/24 06:00 Polyethylene Glycol 17 gm DAILY PO 02/28/24 10:00 Docusate Sodium 100 mg BID PO 02/27/24 22:00 02/27/24 22:48 100 MG Pantoprazole Sodium 40 mg BID@0600,1700 PO 02/28/24 17:00 02/28/24 16:38 40 MG objective General Appearance: Alert, Oriented X3, Cooperative, No acute distress HEENT: Atraumatic, PERRLA, EOMI, Mucous membr. moist/pink Neck: Supple Lungs: Clear to auscultation, Normal air movement Cardiovascular: Regular rate, Normal S1, Normal S2, No murmurs, Gallops, Rubs Abdomen: Normal bowel sounds, Soft, No tenderness Neuro: Cranial nerves 3-12 NL Psych/Mental Status: Mental status NL laboratory and microbiology Laboratory Tests 02/25/24 03:05 Test 02/25/24 03:05 Range/Units Serum Glucose 92 74-106 mg/dL Problems(with codes): (1) Diverticulosis (2) Abdominal pain (3) Anxiety (4) Insomnia (5) Constipation Prognosis Plan Patient is refusing tele psych consult, she stated she had one earlier this year at [facility] Protonix 20 mg p.o. daily EGD findings discussed Patient has been advised outpatient colonoscopy Patient was trying to leave AMA and also requesting an MRI this evening Plan discussed with: Patient RANDEE THOMAS MD Feb 29, 2024 22:25
== END 2024-02-29 15:16 | disposition left against medical advice (07) | DRG 389 ==
LOC: ER 02:38 → OVERFLOW 09:48 → WEST WING 15:10 → UNDODISIN 02-29 15:00
PROVIDERS: ADMIT Hospitalist; ATTEND Internal Medicine
PROC: 0DB68ZX Excision of Stomach, Via Natural or Artificial Opening Endoscopic, Diagnostic (ICD-10-PCS; 2024-02-28)
PROC: 0DB48ZX Excision of Esophagogastric Junction, Via Natural or Artificial Opening Endoscopic, Diagnostic (ICD-10-PCS; 2024-02-28)
PROC: 0DB98ZX Excision of Duodenum, Via Natural or Artificial Opening Endoscopic, Diagnostic (ICD-10-PCS; principal; 2024-02-28 13:20)
DX: K56.41 Fecal impaction (principal); K22.10 Ulcer of esophagus without bleeding; K29.80 Duodenitis without bleeding; K57.30 Diverticulosis of large intestine without perforation or abscess without bleeding; E83.52 Hypercalcemia; F41.9 Anxiety disorder, unspecified; I10 Essential (primary) hypertension; K44.9 Diaphragmatic hernia without obstruction or gangrene; F32.A Depression, unspecified; R20.0 Anesthesia of skin; Z88.5 Allergy status to narcotic agent; Z90.710 Acquired absence of both cervix and uterus; Z91.041 Radiographic dye allergy status
CPT/HCPCS: 36415; 43239; 74176; 80048; 81001; 85025; 85610; 85730; 86850; 86900; 86901; G0378; J2250; J3490

== ENCOUNTER 2024-03-01 10:09 | Inpatient (IN) | payer OTHER ==
[~2024-03-01] VITALS: Ht 161.3 cm; Wt 66.0 kg
[2024-03-01] MEDS: DEXTROSE (50%) 50ML SYRG IV ONE (10:19)
[2024-03-01] MEDS: DEXTROSE 50% SYRINGE 50 ML IV ONE (10:20)
[2024-03-01 10:30] VITALS: PULSE 95; RESP 20; O2SAT 99
--- NOTE | 2024-03-01 10:52 | ED.PDOC ---
HPI (NEURO) HPI Comments 63 year old female TATI presents to the ED with chief complaint of syncope and head injury s/p fall. Patient reports that she had been having her hair done by her earlier this morning when all of a sudden she began to see starts and passed out. EMS relays patient had hit her head on the floor, causing a laceration to the back of the head with controlled bleeding prior to their arrival. EMS states patient now has a headache along with noted constipation that she had been seen at [facility] before yesterday. EMS notes patient is slightly confused and is not fully alert and oriented. BP upon arrival was noted to be 76/55. Patient denies any chest pain, SOB, dizziness, N/V, or dysuria. Chief Complaint: ALOC Time Seen by MD: 10:48 Primary Care Provider: UNKNOWN Reviewed Notes: Nurses Notes, Sheet Rocker Notes, Medications, Allergies Information Source: Patient, Emergency Med Personnel Mode of Arrival: EMS Severity: Moderate Headache Severity: Moderate Timing: Hours Duration: Since onset Prehospital treatment: None Headache Quality: Aching Headache Location: Occipital Onset: At rest Circumstances: Trauma Symptoms: Syncope Before: Normal During: LOC After: Headache History of: Recent head trauma Modifying factors: Nothing Past Medical History PAST MEDICAL HISTORY: Anxiety, Depression Surgical History: Appendectomy, Hysterectomy [employer]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 History: Denies all [employer]PER[employer]OR Hx Family History Family History: Reviewed,noncontributory to illness, Unknown Social History Smoker: Non-Smoker Alcohol: Denies ETOH Use Drugs: Denies Drug Use Lives In: Home Constitutional: denies: chills, diaphoresis, fatigue, fever, malaise, sweats, weakness, others EENTM: denies: blurred vision, double vision, ear bleeding, ear discharge, ear drainage, ear pain, ear ringing, eye pain, eye redness, hearing loss, mouth pain, mouth swelling, nasal discharge, nose bleeding, nose congestion, nose pain, photophobia, tearing, throat pain, throat swelling, voice changes, others Respiratory: denies: cough, hemoptysis, orthopnea, SOB at rest, shortness of breath, SOB with excertion, stridor, wheezing, others Cardiovascular: reports: syncope; denies: chest pain, dizzy spells, diaphoresis, Dyspnea on exertion, edema, irregular heart beat, left arm pain, lightheadedness, palpitations, PND, others Gastrointestinal: reports: constipated; denies: abdomen distended, abdominal pain, blood streaked bowels, diarrhea, dysphagia, difficulty swallowing, hematemesis, melena, nausea, poor appetite, poor fluid intake, rectal bleeding, rectal pain, vomiting, others Genitourinary: denies: abnormal vagina bleeding, burning, dyspareunia, dysuria, flank pain, frequency, hematuria, incontinence, pain, , vagina discharge, urgency, others Neurological: reports: headache; denies: dizziness, fainting, left sided numbness, left sided weakness, numbness, paresthesia, pre-existing deficit, right sided numbness, right sided weakness, seizure, speech problems, tingling, tremors, weakness, others Musculoskeletal: denies: back pain, gout, joint pain, joint swelling, muscle pain, muscle stiffness, neck pain, others Integumetry: reports: laceration (back of head); denies: bruises, change in color, change in hair/nails, dryness, lesions, lumps, rash, wounds, others Allergic/Immunocompromised: denies: Difficulty Healing, Frequent Infections, Hi ves, Itching, others Hematologic/Lymphatic: denies: anemia, blood clots, easy bleeding, easy bruising, swollen glands, others Endocrine: denies: excessive hunger, excessive sweating, excessive thirst, excessive urination, flushing, intolerance to cold, intolerance to heat, unexplained weight gain, unexplained weight loss, others Psychiatric: denies: anxiety, bipolar disorder, depression, hopeless, panic disorder, schizophrenia, sleepless, suicidal, others All Other Systems: Reviewed and Negative Physical Exam General Appearance: Moderate Distress, Normal HEENT: Normal ENT Inspection, PERRL/EOMI Neck: Full Range of Motion, Non-Tender, Normal, Normal Inspection Respiratory: Chest Non-Tender, Lungs Clear, No Accessory Muscle Use, No Respiratory Distress, Normal Breath Sounds Cardiovascular: No Edema, No JVD, No Murmur, No Gallop, Normal Peripheral Pulses, Regular Rate/Rhythm Breast Exam: Deferred Gastrointestinal: No Organomegaly, Non Tender, No Pulsatile Mass, Normal Bowel Sounds, Soft Genitalia: Deferred Pelvic: Deferred Rectal: Deferred Extremities: No calf tenderness, Normal capillary refill, Normal range of motion, Non-tender, No pedal edema Musculoskeletal : Apperance: Normal Neurologic: Disoriented Cerebellar Function: NOT DONE Reflexes: NOT DONE Skin: Dry, Normal Color, Warm Peripheral Pulses: 3+ Radial (R), 3+ Radial (L) Lymphatic: No Adenopathy Was a procedure done? Was a procedure done?: No Differential Diagnosis (SZ) Seizure: Psychogenic Seizure, Closed Head Injury, CVA/TIA X-Ray, Labs, Meds, VS Vital Signs Date Time Temp Pulse Resp B/P (MAP) Pulse Ox O2 Delivery O2 Flow Rate FiO2 03/01/24 12:57 100 20 116/61 (79) 98 03/01/24 12:00 95 03/01/24 10:30 95 20 99 Room Air* 0 21 03/01/24 10:22 98.2 91 16 110/86 (94) 98 03/01/24 10:12 96 Lab Test 03/01/24 10:45 Range/Units White Blood Count 8.6 4.4-10.8 10^3/uL Red Blood Count 4.29 4.0-5.20 10^6/uL Hemoglobin 13.5 12.2-16.2 g/dL Hematocrit 40.1 36.0-46.0 % Mean Corpuscular Volume 93.4 80.0-100.0 fL Mean Corpuscular Hemoglobin 31.4 28.0-32.0 pg Mean Corpuscular Hemoglobin Concent 33.6 32.0-36.0 g/dL Red Cell Distribution Width 13.4 11.8-14.3 % Platelet Count 223 140-450 10^3/uL Mean Platelet Volume 8.9 6.9-10.8 fL Neutrophils (%) (Auto) 83.7 H 37.0-80.0 % Lymphocytes (%) (Auto) 13.3 10.0-50.0 % Monocytes (%) (Auto) 2.4 0.0-12.0 % Eosinophils (%) (Auto) 0.1 0.0-7.0 % Basophils (%) (Auto) 0.5 0.0-2.0 % Neutrophils # (Auto) 7.2 1.6-8.6 10 ^3/uL Lymphocytes # (Auto) 1.1 0.4-5.4 10 ^3/uL Monocytes # (Auto) 0.2 0-1.3 10 ^3/uL Eosinophils # (Auto) 0 0-0.8 10 ^3/uL Basophils # (Auto) 0 0-0.2 10 ^3/uL Nucleated Red Blood Cells 0.1 % Sodium Level 138 # 136-145 mmol/L Potassium Level 3.7 3.5-5.1 mmol/L Chloride Level 102 98-107 mmol/L Carbon Dioxide Level 18 L 20-31 mmol/L Anion Gap 18 H 5-15 Blood Urea Nitrogen 13 9-23 mg/dL Creatinine 0.97 # 0.550-1.02 mg/dL Glomerular Filtration Rate Calc 66 >90 mL/min BUN/Creatinine Ratio 13.4 10.0-20.0 Serum Glucose 256 H 74-106 mg/dL Calcium Level 10.1 8.7-10.4 mg/dL Troponin I High Sensitivity 48 *H </=34 ng/L Plasma/Serum Blood Alcohol < 3.0 <10 mg/dL Current Medications Medications (Trade) Dose Ordered Sig/Francisco Route Start Time Stop Time Status Last Admin Dextrose 50 ml ONCE ONCE IV 03/01/24 10:30 03/01/24 10:31 DC 03/01/24 10:19 CT Head: FINDINGS: There is no acute intracranial hemorrhage or extraaxial fluid collection. No mass effect or midline shift. The ventricles and sulci are within normal limits in size for age. Basal cisterns are patent. The calvarium is unremarkable. Paranasal sinuses and mastoid air cells are clear. IMPRESSION: No CT evidence of acute intracranial abnormality. Patient disoriented. Status post fall. Has a small abrasion in the back of the scalp. CT of the head reviewed does not show any acute process. Blood sugar elevated. Initially blood sugar was low. Blood pressure was low. Cardiac marker slightly elevated pain Demand ischemia. EKG reviewed does not show any acute changes. Reviewed her history pain Explained to the patient. Continue cardiac monitoring. Images Reviewed?: Images reviewed and evaluated by me Time of 1ST Reevaluation: 11:48 Reevaluation 1ST: Improved Patient Education/Counseling: Diagnosis, Treatment Family Education/Counseling: No Family Present Departure 1 Departure Time of Disposition: 14:37 Impression: Primary Impression: Metabolic encephalopathy Additional Impressions: Demand ischemia Head injury Qualified Codes: S09.90XA - Unspecified injury of head, initial encounter Disposition: ADMITTED INPATIENT Admit to: Med Surg Condition: Guarded Critical Care Note Critical Care Time?: Yes (90 min-critical care time only) Stability Stability form required: No Heart Score Heart Score: Heart Score Response (Comments) Value History Slightly Suspicious 0 EKG Normal 0 Age 45-64 1 Risk Factors 1 or 2 risk factors 1 Troponin 1-2 x's Normal limit 1 Total 3 I personally scribed for IOANA STERN MD ([email or web address]) on 03/01/24 at 10:52. Electronically submitted by Berry Soto ([email or web address]). I personally scribed for IOANA STERN MD ([email or web address]) on 03/01/24 at 14:05. Electronically submitted by Berry Soto ([email or web address]). IOANA STERN MD Mar 01, 2024 10:52
[2024-03-01 11:11] LABS: Basophils # (auto) 0 10 ^3/uL (0-0.2); Basophils % (auto) 0.5 % (0.0-2.0); Eosinophils # (auto) 0 10 ^3/uL (0-0.8); Eosinophils % (auto) 0.1 % (0.0-7.0); Hematocrit 40.1 % (36.0-46.0); Hemoglobin 13.5 g/dL (12.2-16.2); Lymphocytes # (auto) 1.1 10 ^3/uL (0.4-5.4); Lymphocytes % (auto) 13.3 % (10.0-50.0); Mean Corpuscular Hemoglobin 31.4 pg (28.0-32.0); Mean Corpuscular Hgb Conc. 33.6 g/dL (32.0-36.0); Mean Corpuscular Volume 93.4 fL (80.0-100.0); Monocytes # (auto) 0.2 10 ^3/uL (0-1.3); Monocytes % (auto) 2.4 % (0.0-12.0); Neutrophils # (auto) 7.2 10 ^3/uL (1.6-8.6); Neutrophils % (auto) 83.7 % (37.0-80.0); Nucleated Red Blood Cells % 0.1 %; Platelet Count (auto) 223 10^3/uL (140-450); Red Blood Cells 4.29 10^6/uL (4.0-5.20); Red Cell Distribution Width 13.4 % (11.8-14.3); White Blood Cell 8.6 10^3/uL (4.4-10.8)
[2024-03-01 11:13] LABS: Chloride 102 mmol/L (98-107); Potassium 3.7 mmol/L (3.5-5.1); Sodium 138 mmol/L (136-145)
[2024-03-01 11:14] LABS: Anion Gap 18 (5-15); Carbon Dioxide 18 mmol/L (20-31)
[2024-03-01 11:15] LABS: Calcium 10.1 mg/dL (8.7-10.4)
[2024-03-01 11:19] LABS: BUN/Creatinine Ratio 13.4 (10.0-20.0); Blood Urea Nitrogen 13 mg/dL (9-23); Glucose 256 mg/dL (74-106)
[2024-03-01 11:20] LABS: Blood Alcohol < 3.0 mg/dL (<10)
--- NOTE | 2024-03-01 14:02 | DVH ---
CLINICAL INFORMATION: 63 years old, Female; acute loss of consciousness. TECHNIQUE: Axial imaging was obtained through the brain without contrast. Coronal and sagittal refor matted images were obtained, reviewed, and stored. Images were reviewed in brain and bone windows. A ll CT scans at this medical facility are performed using dose modulation techniques as appropriate to a performed exam including the following: Automated exposure control was utilized; adjustment of the MA and/or KV according to patient size; and use of iterative reconstruction technique. CTDIvol = 48.53 mGy DLP = 840.55 mGy-cm COMPARISON: None FINDINGS: There is no acute intracranial hemorrhage or extraaxial fluid collection. No mass effect o r midline shift. The ventricles and sulci are within normal limits in size for age. Basal cisterns a re patent. The calvarium is unremarkable. Paranasal sinuses and mastoid air cells are clear. IMPRESSION: No CT evidence of acute intracranial abnormality.
[2024-03-01] MEDS ORDERED: ACETAMINOPHEN 325 MG TAB PO PRN (15:15)
[2024-03-01] MEDS ORDERED: ONDANSETRON HCL 4 MG/2 ML VIAL IV PRN (15:15)
[2024-03-01] MEDS ORDERED: ZOLPIDEM TARTRATE 5 MG TAB PO PRN (15:15)
[2024-03-01] MEDS ORDERED: DEXTROSE (50%) 50ML SYRG IV PRN (15:15)
[2024-03-01] MEDS ORDERED: LORazepam 0.5 MG TAB PO PRN (15:15)
[2024-03-01] MEDS ORDERED: NITROGLYCERIN 0.4 MG SL TAB SL PRN (15:15)
[2024-03-01] MEDS: MAALOX PLUS or MAALOX 30 ML PO ONE (15:30)
[2024-03-01 15:49] LABS: Urine Bacteria None Seen /hpf (None Seen)
--- NOTE | 2024-03-01 15:52 | DVHHP2 ---
History of Present Illness Reason for Visit: Syncope History of Present Illness 63 yo patient recently in the hospital for the management of abdominal pain revisits the ed after having a syncopal episode that was stated to initially the unknown reason patient was stated to be with her when she was standing began to see stars and fell to the ground striking her head on ED evaluation patient was found to have severe hypotension and elevated trops which lead to the need for further evaluation and admission Cardiovascular: HTN Endocrine: Diabetes Review of Systems Constitutional: Yes: Weakness; No: Fever, Chills, Sweats, Malaise, Other Eyes: No: Pain, Vision change, Conjunctivae inflammation, Eyelid inflammation, Other, Redness ENT: No: Ear pain, Ear discharge, Nose pain, Nose discharge, Nose congestion, Mouth pain, Mouth swelling, Throat pain, Throat swelling, Other Respiratory: No: Cough, Dry, Shortness of breath, SOB with excertion, Wheezing, Hemoptysis, Pleuritic Pain, Sputum, Wheezing, Other Cardiovascular: Palpitations; No: Chest Pain, Orthopnea, Paroxysmal Noc. Dyspnea, Edema, Lt Headedness, Other Gastrointestinal: No: Nausea, Vomiting, Abdominal Pain, Diarrhea, Constipation, Melena, Hematochezia, Other Genitourinary: No Dysuria, No Frequency, No Incontinence, No Hematuria, No Retention, No Other Musculoskeletal: No: other, neck pain, shoulder pain, arm pain, back pain, hand pain, leg pain, foot pain Skin: No: Rash, Lesions, Jaundice, Bruising, Other Neurological: No: Weakness, Numbness, Incoordination, Change in speech, Confusion, Seizures, Other Allergies: Coded Allergies: Codeine (Verified Allergy, Intermediate, throat numbness, 02/25/24) Sulfa Antibiotics (Verified Allergy, Intermediate, hives, 02/25/24) Iodine (Verified Allergy, Unknown, 02/25/24) IV contrast pt stated makes her not feel well Medications Current Medications Medications Dose Ordered Sig/Francisco Route Start Time Stop Time Status Last Admin Dose Admin Sodium Chloride 1,000 ml @ 75 mls/hr [id number] IV 03/01/24 15:15 UNV Aspirin 81 mg DAILY PO 03/01/24 15:15 UNV Clopidogrel Bisulfate 75 mg DAILY PO 03/01/24 15:15 UNV Atorvastatin Calcium 80 mg HS PO 03/01/24 22:00 UNV Metoprolol Tartrate 12.5 mg Q12HR PO 03/01/24 22:00 UNV Acetaminophen 650 mg Q6HP PRN PO 03/01/24 15:15 UNV Zolpidem Tartrate 5 mg QHSP PRN PO 03/01/24 15:15 UNV Lorazepam 0.5 mg Q6HP PRN PO 03/01/24 15:15 UNV Docusate Sodium 100 mg DAILY PO 03/02/24 10:00 UNV Enoxaparin Sodium 60 mg Q12HR SC 03/01/24 22:00 UNV Ondansetron HCl 4 mg Q4HP PRN IV 03/01/24 15:15 UNV Lisinopril 10 mg DAILY PO 03/02/24 10:00 UNV Nitroglycerin 0.4 mg Q5MINP PRN SL 03/01/24 15:15 UNV Diagnostic Test (Pha) 1 strip ACHS 03/01/24 17:00 UNV Insulin Human Regular AC SC 03/01/24 17:00 UNV Insulin Human Regular HS SC 03/01/24 22:00 UNV Dextrose 50 ml UD PRN IV 03/01/24 15:15 UNV Exam Vital Signs Vital Signs Date Time Temp Pulse Resp B/P (MAP) Pulse Ox O2 Delivery O2 Flow Rate FiO2 03/01/24 12:57 100 20 116/61 (79) 98 03/01/24 10:30 Room Air* 0 21 03/01/24 10:22 98.2 General Appearance: Alert, Oriented X3 HEENT: PERRLA, EOMI, Other (facial trauma ) Respiratory: Clear to auscultation, Normal air movement Cardiovascular: Regular rate, Normal S1, Normal S2 Abdominal: Normal bowel sounds, Soft, No tenderness Extremities: No clubbing, No cyanosis, No edema Skin: No rashes, No breakdown, No significant lesion Neuro: Normal gait, Normal speech, Strength at 5/5 X4 ext Psych/Mental Status: Mood NL Labs/Xrays Labs Test 03/01/24 10:45 Range/Units White Blood Count 8.6 4.4-10.8 10^3/uL Red Blood Count 4.29 4.0-5.20 10^6/uL Hemoglobin 13.5 12.2-16.2 g/dL Hematocrit 40.1 36.0-46.0 % Mean Corpuscular Volume 93.4 80.0-100.0 fL Mean Corpuscular Hemoglobin 31.4 28.0-32.0 pg Mean Corpuscular Hemoglobin Concent 33.6 32.0-36.0 g/dL Red Cell Distribution Width 13.4 11.8-14.3 % Platelet Count 223 140-450 10^3/uL Mean Platelet Volume 8.9 6.9-10.8 fL Neutrophils (%) (Auto) 83.7 H 37.0-80.0 % Lymphocytes (%) (Auto) 13.3 10.0-50.0 % Monocytes (%) (Auto) 2.4 0.0-12.0 % Eosinophils (%) (Auto) 0.1 0.0-7.0 % Basophils (%) (Auto) 0.5 0.0-2.0 % Neutrophils # (Auto) 7.2 1.6-8.6 10 ^3/uL Lymphocytes # (Auto) 1.1 0.4-5.4 10 ^3/uL Monocytes # (Auto) 0.2 0-1.3 10 ^3/uL Eosinophils # (Auto) 0 0-0.8 10 ^3/uL Basophils # (Auto) 0 0-0.2 10 ^3/uL Nucleated Red Blood Cells 0.1 % Sodium Level 138 # 136-145 mmol/L Potassium Level 3.7 3.5-5.1 mmol/L Chloride Level 102 98-107 mmol/L Carbon Dioxide Level 18 L 20-31 mmol/L Anion Gap 18 H 5-15 Blood Urea Nitrogen 13 9-23 mg/dL Creatinine 0.97 # 0.550-1.02 mg/dL Glomerular Filtration Rate Calc 66 >90 mL/min BUN/Creatinine Ratio 13.4 10.0-20.0 Serum Glucose 256 H 74-106 mg/dL Calcium Level 10.1 8.7-10.4 mg/dL Troponin I High Sensitivity 48 *H </=34 ng/L Plasma/Serum Blood Alcohol < 3.0 <10 mg/dL Assessment/Plan Assessment/Plan Admit to Tele Syncopal Episode Believed to be due to hypotension BP on evaluation 70/40s Patient with Elevated Trops Suspected NStemi due to demand ischemia Cardio evaluation trend trops chest pain protocol dehydration noted IV fluids C/w home meds for chronic issues recheck urine for uti and possible source of infection Plan discussed with: Patient My Orders Orders - BRANDYN DUNHAM MD Procedure Category Date Status Time * Cardiology Consult CONS 03/01/24 Transmitted 15:09 Admit ADMIT 03/01/24 Transmitted 15:09 Code Status CODE 03/01/24 Transmitted 15:09 Reflow Operator JUTSIN 03/01/24 In Process 15:09 Cardiac DIET 03/01/24 Transmitted Diet-2gna,Lofat,Lochol Dinner Sodium Chloride 0.9% PHA 03/01/24 Logged 15:15 Aspirin Tablet PHA 03/01/24 Logged 15:15 Clopidogrel Bisulfate PHA 03/01/24 Logged (Plavix) 15:15 Atorvastatin (Lipitor) PHA 03/01/24 Logged 22:00 Metoprolol Tartrate PHA 03/01/24 Logged Tablet (Lopressor Ta 22:00 Acetaminophen Tablet PHA 03/01/24 Logged (Tylenol Tablet) 15:15 Zolpidem Tartrate PHA 03/01/24 Logged (Ambien) 15:15 Lorazepam Tablet PHA 03/01/24 Logged (Ativan Tablet) 15:15 Docusate Sodium PHA 03/02/24 Logged Capsule (Colace 10:00 Complete Blood Count LAB 03/02/24 Verified 04:00 Basic Metabolic Panel LAB 03/02/24 Verified 04:00 Echo 2d Mode Cardiac US 03/01/24 Logged DOP 15:09 Enoxaparin Sodium PHA 03/01/24 Logged (Lovenox) 22:00 Ondansetron Hcl PHA 03/01/24 Logged (Zofran) 15:15 Electrocardigram EKG 03/01/24 Logged 15:09 Alum & Mag PHA 03/01/24 Logged Hydrox-Simethicone 15:15 Troponin-I Hs LAB 03/01/24 Logged 15:09 Lisinopril Tablet PHA 03/02/24 Logged (Zestril Tablet) 10:00 Cardiac JUSTIN 03/01/24 In Process Rehabilitation - Outpa Nitroglycerin PHA 03/01/24 Logged Sublingual (Ntrostat 15:15 Stat Ekg For Chest JUSTIN 03/01/24 In Process Pain 15:09 Notify Of Changes JUSTIN 03/01/24 In Process From Base 15:09 Quantitative Research Analyst For JUSTIN 03/01/24 In Process 24 Hours 15:09 Emergency Dysrhythmia JUSTIN 03/01/24 In Process Protocol 15:09 Rhythm Strips Once JUSTIN 03/01/24 In Process Every Shift 15:09 Oxygen By Nasal RT 03/01/24 Transmitted Cannula 15:09 Troponin-I Hs LAB 03/01/24 Logged 16:09 Glucose Blood PHA 03/01/24 Logged (Accu-Chek Comfort 17:00 Insulin R (Human) PHA 03/01/24 Logged (Insulin R) 17:00 Insulin R (Human) PHA 03/01/24 Logged (Insulin R) 22:00 Dextrose 50% Syringe PHA 03/01/24 Logged 15:15 Problem List: (1) Urinary tract infection (2) Head injury (3) Demand ischemia Date of Service: Mar 01, 2024 Billing Provider: BRANDYN DUNHAM MD Common Visit Codes: [id number] INP/OBS CARE (HIGH) BRANDYN DUNHAM MD Mar 01, 2024 15:52
[2024-03-01 15:55] LABS: Urine Blood TRACE /uL (Negative); Urine Clarity Clear (Clear); Urine Color Light-Yellow (Yellow); Urine Hyaline Cast MOD /lpf (0 - 2); Urine Mucus FEW (None Seen); Urine Protein, UAD TRACE (Negative); Urine Urobilinogen Normal (Negative); Urine WBC 20 /hpf (0 - 5); Urine pH 5.5 (5.0-9.0)
[2024-03-01] MEDS: ASPirin 81 mg TAB PO SCH (16:21)
[2024-03-01] MEDS: SODIUM CHLORIDE 0.9% 1,000 ML IV SCH (16:22)
[2024-03-01] MEDS: CLOPIDOGREL BISULFATE 75 MG TAB PO SCH (16:22)
[2024-03-01] MEDS: InsuLIN REG 1unit/0.01ml Soln (100units/ml) SC SCH ×2 (17:00→22:00)
[2024-03-01] MEDS: ACCU-CHEK COMFORT CURVE STRIP VI SCH (17:11)
--- NOTE | 2024-03-01 18:03 | DVHSR ---
APPROVED REPORT EXAM: Two-dimensional and M-mode echocardiogram with Doppler and color Doppler. Blood Pressure: 116/61 mmHg INDICATION Chest Pain RISK FACTORS Height: 66, Weight: 145 DIMENSIONS LVDd3.4 (3.8-5.7cm)LA (2D)3.3 (1.9-4.0cm)Aortic Root3.3 (2.0-3.7cm) LVDs2.3 (2.5-4.0cm)LA (MM) (1.9-4.0cm)Aortic Cusp Exc1.8 (1.5-2.0cm) EF (%) 60.0 (55-70%)Rt. Atrium4.0 (1.9-4.0cm)Asc. Aorta cm IVSd1.2 (0.7-1.1cm)RV (D) (1.8-2.4cm) PWd1.2 (0.7-1.1cm) Mitral Valve MitralMitral Stenosis E wave0.59m/sMV Mean GR.mmHg A wave1.03m/sMV Peak GR.mmHg E/A ratio0.62D MVAcm2 DECEL [id number] 1/2 Timems Aortic Valve Aortic ValveAortic Stenosis V10.96m/Krystin Mean GR.3mmHg V21.38m/Krystin Peak GR.8mmHg LVOT Diameter2.1 (1.8-2.4cm)Doppler AVA2.41cm2 Pulmonic Valve V21.09m/s Tricuspid Valve TR Velocity1.66m/s [id number] Conclusion lvef 70% by visual estimate park l rv function normal atria no severe valve abnormalities noted
--- NOTE | 2024-03-01 19:01 | ECG ---
[facility] Test Date: 2024-03-01 Test Time: 10:12:14 Pat Name: BÁRBARA LYNCH Department: ED Room: 0276T Gender: F Hemotherapist: ELIEZER : 1960 Requested By: IOANA STERN Order Number: [id number] Reading MD: Pedrito Kebede Measurements Intervals Clements Rate: 96 P: 60 TN: 144 QRS: 24 QRSD: 89 T: 43 QT: 385 QTc: 487 Interpretive Statements Sinus rhythm RSR' in V1 or V2, probably normal variant Minimal ST elevation, anterior leads Borderline prolonged QT interval Electronically Signed On 03-07-2024 13:22:58 PST by Pedrito Kebede Please click the below link to view image of tracing.
[2024-03-01] MEDS: METOPROLOL TARTRATE 25 MG TAB PO SCH (22:00)
[2024-03-01] MEDS ORDERED: ENOXAPARIN SOD 60 MG/0.6 ML SYRINGE SC SCH (22:00)
[2024-03-01] MEDS: ATORVASTATIN 20 MG TAB PO SCH (22:00)
[2024-03-02] VITALS (11 sets, daily range): BP systolic 123–150; BP diastolic 29–91; PULSE 20–115; RESP 16–20; TEMP 94–98.3; O2SAT 95–100
[2024-03-02] MEDS: DOCUSATE SOD 100 MG CAP PO SCH (10:00)
[2024-03-02] MEDS: LISINOPRIL 5 MG TAB PO SCH (10:00)
--- NOTE | 2024-03-02 18:27 | DVHPN2 ---
Subjective states her gi system has slowed down and has low appetite Changes from previous H/P or p: No Changes Eyes: No Pain, No Vision change, No Conjunctivae inflammation, No Eyelid inflammation, No Other, No Redness ENT: No Ear pain, No Ear discharge, No Nose pain, No Nose discharge, No Nose congestion, No Mouth pain, No Mouth swelling, No Throat pain, No Throat swelling, No Other Cardiovascular: Palpitations Respiratory: No Cough, No Dry, No Shortness of breath, No SOB with excertion, No Wheezing, No Hemoptysis, No Pleuritic Pain, No Sputum, No Other Gastrointestinal: No Nausea, No Vomiting, No Abdominal Pain, No Diarrhea, No Constipation, No Melena, No Hematochezia, No Other Genitourinary: No Dysuria, No Frequency, No Incontinence, No Hematuria, No Retention, No Other Musculoskeletal: No other, No neck pain, No shoulder pain, No arm pain, No back pain, No hand pain, No leg pain, No foot pain Skin: No Rash, No Lesions, No Jaundice, No Bruising, No Other Objective Vitals Vital Signs Date Time Temp Pulse Resp B/P (MAP) Pulse Ox O2 Delivery O2 Flow Rate FiO2 03/02/24 17:00 98.3 94 20 127/29 (61) 95 98.3 03/02/24 08:15 Room Air* 0 21 Intake/Output Intake and Output 03/02/24 07:00 Intake Total 375 ml Output Total 0 ml Balance 375 ml IV Total 375 ml Output Urine Total 0 ml General Appearance: Alert, Oriented X3, Cooperative, No acute distress Lungs: Clear to auscultation Cardiovascular: Regular rate, Normal S1, Normal S2 Abdomen: Normal bowel sounds, Soft, No tenderness, No hepatospenomegaly Musculoskeletal: Normal sensory function, Normal motor function Extremities: No edema Neuro: Normal gait, Normal speech, Strength at 5/5 X4 ext, Normal tone, S ensation intact, Cranial nerves 3-12 NL Medications Current Medications Medications Dose Ordered Sig/Francisco Route Start Time Stop Time Status Last Admin Dose Admin Sodium Chloride 1,000 ml @ 75 mls/hr [id number] IV 03/01/24 15:15 03/02/24 05:00 75 MLS/HR Aspirin 81 mg DAILY PO 03/01/24 15:15 03/01/24 16:21 81 MG Clopidogrel Bisulfate 75 mg DAILY PO 03/01/24 15:15 03/01/24 16:22 75 MG Atorvastatin Calcium 80 mg HS PO 03/01/24 22:00 Metoprolol Tartrate 12.5 mg Q12HR PO 03/01/24 22:00 Acetaminophen 650 mg Q6HP PRN PO 03/01/24 15:15 Zolpidem Tartrate 5 mg QHSP PRN PO 03/01/24 15:15 Lorazepam 0.5 mg Q6HP PRN PO 03/01/24 15:15 Docusate Sodium 100 mg DAILY PO 03/02/24 10:00 Enoxaparin Sodium 60 mg Q12HR SC 03/01/24 22:00 Hold Ondansetron HCl 4 mg Q4HP PRN IV 03/01/24 15:15 Lisinopril 10 mg DAILY PO 03/02/24 10:00 Nitroglycerin 0.4 mg Q5MINP PRN SL 03/01/24 15:15 Diagnostic Test (Pha) 1 strip ACHS 03/01/24 17:00 03/02/24 07:00 1 STRIP Insulin Human Regular AC SC 03/01/24 17:00 Insulin Human Regular HS SC 03/01/24 22:00 Dextrose 50 ml UD PRN IV 03/01/24 15:15 Laboratory Results Laboratory Tests 03/01/24 10:45 Urinalysis Test 03/01/24 15:35 Urine Color Light-yellow (Yellow) Urine Clarity Clear (Clear) Urine pH 5.5 (5.0-9.0) Urine Specific Wheeler 1.020 (1.001-1.035) Urine Protein Trace (Negative) H Urine Ketones 4+ (Negative) H Urine Blood Trace /uL (Negative) H Urine Nitrite Negative (Negative) Urine Bilirubin Negative (Negative) Urine Urobilinogen Normal mg/dL (Negative) Urine Leukocyte Esterase Negative /uL (Negative) Urine RBC 1 /hpf (0 - 4) Urine WBC 20 /hpf (0 - 5) Urine Squamous Epithelial Cells Few /hpf (<5) Urine Bacteria None seen /hpf (None Seen) Urine Hyaline Casts Mod /lpf (0 - 2) Urine Mucus Few (None Seen) Urine Glucose Trace mg/dL (Normal) Labs and/or images reviewed: Labs reviewed by me, Image(s) reviewed by me Assessment/Plan Assessment/Plan hypotension-improved// normal echo/secondary to dehydration/check am cortisol sugars are good mild metabolic acidoisis/normal sugars- evlauate and monitor closely gerd oral thrush NORMAL CORONARY ANGIOGRAM AT [facility] BY 2023 PER PT- Plan discussed with: Patient My Orders Orders - MADDY WERNER MD Procedure Category Date Status Time Cortisol Am LAB 03/02/24 Logged 17:56 Basic Metabolic Panel LAB 03/02/24 Logged 17:56 Date of Service: Mar 02, 2024 Billing Provider: MADDY WERNER MD Common Visit Codes: [id number] INP/OBS CARE(HIGH) MADDY WERNER MD Mar 02, 2024 18:27
[2024-03-02] MEDS: PANTOPRAZOLE 40 MG TAB PO ONE (18:40)
[2024-03-02] MEDS: NYSTATIN (MOUTH-THROAT) 500,000 UNITS/5 ML SUSP MT ONE (18:40)
[2024-03-02 19:07] LABS: Chloride 106 mmol/L (98-107); Potassium 3.1 mmol/L (3.5-5.1); Sodium 140 mmol/L (136-145)
[2024-03-02 19:08] LABS: Anion Gap 14 (5-15); Calcium 9.6 mg/dL (8.7-10.4); Carbon Dioxide 20 mmol/L (20-31)
[2024-03-02 19:13] LABS: Glucose 69 mg/dL (74-106)
[2024-03-02 19:17] LABS: Blood Urea Nitrogen < 5 mg/dL (9-23)
[2024-03-02] MEDS: NYSTATIN (MOUTH-THROAT) 500,000 UNITS/5 ML SUSP MT SCH (21:20)
[2024-03-03] MEDS: PANTOPRAZOLE 40 MG TAB PO SCH (05:58)
[2024-03-03 08:15] VITALS: PULSE 93; RESP 18
[2024-03-03 08:17] VITALS: PULSE 97
[2024-03-03 09:00] VITALS: BP 132/69; PULSE 93; RESP 18; TEMP 98.1; O2SAT 98
--- NOTE | 2024-03-03 12:12 | DVHINCON2 ---
Date Seen: Mar 03, 2024 Referring Physician MD Dhaval Reason for Consultation Elevated Troponin History of Present Illness 63-year-old female with PMH for HTN, presents to the hospital after having syncopal episode. Patient poor historian and states unaware of events leading up to hospital therefore information gathering mainly from chart review. Apparently patient had a syncopal episode where she fell back and hit her head. Per EMS patient hit her head on the floor causing a laceration in the back of the head with controlled bleeding prior to arrival. Patient noted to be hypotensive on arrival with BP 76/55. No episodes of chest pain, palpitations, diaphoresis, N/V noted. Patient found to have elevated troponin as well trending 48, 51, 53. EKG reviewed and shows sinus rhythm at 96 beats per minute. Nonspecific ST and T-wave abnormality anteriorly. Past Medical History HTN Anxiety and depression Past Surgical History No previous cardiac surgeries noted Family History: FH: cancer G8 MOTHER Family History Denies pertinent family cardiac history Social History Denies alcohol, tobacco, or illicit drug use Allergies: Coded Allergies: Codeine (Verified Allergy, Intermediate, throat numbness, 02/25/24) Sulfa Antibiotics (Verified Allergy, Intermediate, hives, 02/25/24) Iodine (Verified Allergy, Unknown, 02/25/24) IV contrast pt stated makes her not feel well Current Medications Current Medications Medications (Trade) Dose Ordered Sig/Francisco Route PRN Reason Start Time Stop Time Status Last Admin Nystatin (Mycostatin (Mouth-Throat)) 5 ml QID MT 03/02/24 22:00 03/02/24 21:20 Pantoprazole Sodium (Protonix Tablet) 40 mg DAILY@0600 PO 03/03/24 06:00 Review of Systems Constitutional: No: Fever, Chills, Sweats, , Other positive: Weakness, Malaise Eyes: No: Pain, Vision change, Conjunctivae inflammation, Eyelid inflammation, Other, Redness ENT: No: Ear pain, Ear discharge, Nose pain, Nose discharge, Nose congestion, Mouth pain, Mouth swelling, Throat pain, Throat swelling, Other Respiratory: No: Cough, Dry, Shortness of breath, SOB with exertion, Wheezing, Hemoptysis, Pleuritic Pain, Sputum, Wheezing, Other Cardiovascular: ; No: Chest Pain Palpitations, Orthopnea, Paroxysmal Noc. Dyspnea, Edema, Lt Headedness, Other Gastrointestinal: No: , Vomiting, Abdominal Pain, Diarrhea, Constipation, Melena, Hematochezia, Other positive: Nausea, decreased appetite Genitourinary: No Dysuria, No Frequency, No Incontinence, No Hematuria, No Retention, No Other Musculoskeletal: neck pain; No: other, shoulder pain, arm pain, back pain, hand pain, leg pain, foot pain Skin: No: Rash, Lesions, Jaundice, Bruising, Other Neurological: Other (Dizziness, headache.); No: Weakness, Numbness, Incoordination, Change in speech, Confusion, Seizures Vital Signs Vital Signs Date Time Temp Pulse Resp B/P (MAP) Pulse Ox O2 Delivery O2 Flow Rate FiO2 03/03/24 09:00 98.1 93 18 132/69 (90) 98 98.1 03/03/24 08:15 Room Air* 0 21 Physical Exam General appearance: Patient is well-developed, well-nourished, in no acute distress. HEENT: Exam shows: Normocephalic, atraumatic, PERRLA, EOMI. Head Laceration Neck: Supple, no bruits Chest: Equal chest excursion bilaterally. Breath sounds normal-no rales or wheezes. Heart: Rhythm: Regular rate; no murmur or gallop Abdomen: Exam shows: Soft, nontender, nondistended Musculoskeletal: No clubbing, no cyanosis, no lower extremity edema Dermatology: Skin warm, moist. Neurological: Exam shows: Alert and oriented x3, normal speech Available prior records, labs, EKG, rhythm strips reviewed and interpreted Labs/Diagnostic Data Labs Test 03/03/24 07:51 03/02/24 18:45 03/02/24 05:56 03/01/24 22:08 Range/Units Sodium Level 140 136-145 mmol/L Potassium Level 3.1 L 3.5-5.1 mmol/L Chloride Level 106 98-107 mmol/L Carbon Dioxide Level 20 20-31 mmol/L Anion Gap 14 5-15 Blood Urea Nitrogen < 5 L 9-23 mg/dL Creatinine 0.50 #L 0.550-1.02 mg/dL Glomerular Filtration Rate Calc 105 >90 mL/min BUN/Creatinine Ratio 10.0 10.0-20.0 Serum Glucose 69 L 74-106 mg/dL Calcium Level 9.6 8.7-10.4 mg/dL POC Glucose 77 70-106 mg/dl Troponin I High Sensitivity 53 *H </=34 ng/L Test 03/01/24 15:35 03/01/24 10:45 Range/Units Urine Color Light-yellow Yellow Urine Clarity Clear Clear Urine pH 5.5 5.0-9.0 Urine Specific [place] 1.020 1.001-1.035 Urine Protein Trace H Negative Urine Ketones 4+ H Negative Urine Blood Trace H Negative /uL Urine Nitrite Negative Negative Urine Bilirubin Negative Negative Urine Urobilinogen Normal Negative mg/dL Urine Leukocyte Esterase Negative Negative /uL Urine RBC 1 0 - 4 /hpf Urine WBC 20 0 - 5 /hpf Urine Squamous Epithelial Cells Few <5 /hpf Urine Bacteria None seen None Seen /hpf Urine Hyaline Casts Mod 0 - 2 /lpf Urine Mucus Few None Seen Urine Glucose Trace Normal mg/dL White Blood Count 8.6 4.4-10.8 10^3/uL Red Blood Count 4.29 4.0-5.20 10^6/uL Hemoglobin 13.5 12.2-16.2 g/dL Hematocrit 40.1 36.0-46.0 % Mean Corpuscular Volume 93.4 80.0-100.0 fL Mean Corpuscular Hemoglobin 31.4 28.0-32.0 pg Mean Corpuscular Hemoglobin Concent 33.6 32.0-36.0 g/dL Red Cell Distribution Width 13.4 11.8-14.3 % Platelet Count 223 140-450 10^3/uL Mean Platelet Volume 8.9 6.9-10.8 fL Neutrophils (%) (Auto) 83.7 H 37.0-80.0 % Lymphocytes (%) (Auto) 13.3 10.0-50.0 % Monocytes (%) (Auto) 2.4 0.0-12.0 % Eosinophils (%) (Auto) 0.1 0.0-7.0 % Basophils (%) (Auto) 0.5 0.0-2.0 % Neutrophils # (Auto) 7.2 1.6-8.6 10 ^3/uL Lymphocytes # (Auto) 1.1 0.4-5.4 10 ^3/uL Monocytes # (Auto) 0.2 0-1.3 10 ^3/uL Eosinophils # (Auto) 0 0-0.8 10 ^3/uL Basophils # (Auto) 0 0-0.2 10 ^3/uL Nucleated Red Blood Cells 0.1 % Plasma/Serum Blood Alcohol < 3.0 <10 mg/dL Assessment * Syncope - CT head negative. Continue telemetry monitoring. Likely vasovagal in setting of hypotension. On IV fluid hydration. * Hypotension - IV fluids. Positive orthostatics. Continue monitoring. AM Cortisol level pending. * Mildly elevated troponin - likely demand ischemia from hypotension. denies chest pain. Apparently had negative coronary angiogram recently at [facility] Normal EF on echo. Refusing aspirin and Plavix. Continue conservative medical management. * Oral thrush - management per primary team * HX HTN - BP stable, continue trending. * Hypokalemia - monitoring replace electrolytes. Case Discussed with Dr Car. Apparent recent normal coronary angiogram at [facility]) per patient. Normal echo, no valvular structural abnormalities. There is no further cardiac work-up indicated at this time. Thank you for allowing us to participate in this patient's care. Critical care, time spent: 48 minutes This medical document was created using an electronic medical record system with voice recognition software and computerized dictation system. Although this document has been carefully reviewed, there might still be some phonetic and typographical errors. Occasional wrong-word or ``sound-alike substitutions may have occurred due to the inherent limitations of voice recognition software. These areas are purely typographical due to imperfections of the software programs and do not reflect any compromise in the patient's medical care. Please read the chart carefully and recognize, using context, where these substitutions have occurred. Plan discussed with: Patient Date of Service: Mar 03, 2024 Billing Provider: TREY STEEL Cardiology Common Codes: 77168-BUTSPMM INP/OBS CARE (High), 80876-BGDAOCVV CARE 30-74 MIN TREY STEEL Mar 03, 2024 12:12
[2024-03-03 13:00] VITALS: BP_SYST 103; BP_SYST 140; BP_DIAS 54; BP_DIAS 84; PULSE 91; RESP 16; TEMP 97.8; TEMP 98.1; O2SAT 99
[2024-03-03] MEDS: POTASSIUM CHL 20 Meq TABLET PO ONE (14:30)
[2024-03-03 17:00] VITALS: BP 126/81; PULSE 97; RESP 16; TEMP 98.1; O2SAT 99
[2024-03-03 17:12] LABS: Chloride 103 mmol/L (98-107); Potassium 3.1 mmol/L (3.5-5.1); Sodium 138 mmol/L (136-145)
[2024-03-03 17:13] LABS: Anion Gap 15 (5-15); Calcium 10.1 mg/dL (8.7-10.4); Carbon Dioxide 20 mmol/L (20-31)
[2024-03-03 17:18] LABS: BUN/Creatinine Ratio 11.3 (10.0-20.0); Blood Urea Nitrogen 6 mg/dL (9-23); Glucose 64 mg/dL (74-106)
--- NOTE | 2024-03-08 12:44 | DVHDS2 ---
Discharge Summary Date of Admission Mar 01, 2024 at 15:09 Date of Discharge: Mar 03, 2024 Admitting Diagnosis syncope due to dehydration from poor po intake Wounds: nil Labs/Diagnostic Data: Laboratory Results Test 03/03/24 07:51 03/02/24 05:56 03/01/24 22:08 03/01/24 15:35 Sodium Level 138 mmol/L (136-145) Potassium Level 3.1 mmol/L (3.5-5.1) Chloride Level 103 mmol/L (98-107) Carbon Dioxide Level 20 mmol/L (20-31) Anion Gap 15 (5-15) Blood Urea Nitrogen 6 mg/dL (9-23) Creatinine 0.53 mg/dL (0.550-1.02) Glomerular Filtration Rate Calc 104 mL/min (>90) BUN/Creatinine Ratio 11.3 (10.0-20.0) Serum Glucose 64 mg/dL (74-106) Calcium Level 10.1 mg/dL (8.7-10.4) Cortisol AM Sample 15.11 ug/dL (5.27-22.45) POC Glucose 77 mg/dl (70-106) Troponin I High Sensitivity 53 ng/L (</=34) Urine Color Light-yellow (Yellow) Urine Clarity Clear (Clear) Urine pH 5.5 (5.0-9.0) Urine Specific [place] 1.020 (1.001-1.035) Urine Protein Trace (Negative) Urine Ketones 4+ (Negative) Urine Blood Trace /uL (Negative) Urine Nitrite Negative (Negative) Urine Bilirubin Negative (Negative) Urine Urobilinogen Normal mg/dL (Negative) Urine Leukocyte Esterase Negative /uL (Negative) Urine RBC 1 /hpf (0 - 4) Urine WBC 20 /hpf (0 - 5) Urine Squamous Epithelial Cells Few /hpf (<5) Urine Bacteria None seen /hpf (None Seen) Urine Hyaline Casts Mod /lpf (0 - 2) Urine Mucus Few (None Seen) Urine Glucose Trace mg/dL (Normal) Test 03/01/24 10:45 White Blood Count 8.6 10^3/uL (4.4-10.8) Red Blood Count 4.29 10^6/uL (4.0-5.20) Hemoglobin 13.5 g/dL (12.2-16.2) Hematocrit 40.1 % (36.0-46.0) Mean Corpuscular Volume 93.4 fL (80.0-100.0) Mean Corpuscular Hemoglobin 31.4 pg (28.0-32.0) Mean Corpuscular Hemoglobin Concent 33.6 g/dL (32.0-36.0) Red Cell Distribution Width 13.4 % (11.8-14.3) Platelet Count 223 10^3/uL (140-450) Mean Platelet Volume 8.9 fL (6.9-10.8) Neutrophils (%) (Auto) 83.7 % (37.0-80.0) Lymphocytes (%) (Auto) 13.3 % (10.0-50.0) Monocytes (%) (Auto) 2.4 % (0.0-12.0) Eosinophils (%) (Auto) 0.1 % (0.0-7.0) Basophils (%) (Auto) 0.5 % (0.0-2.0) Neutrophils # (Auto) 7.2 10 ^3/uL (1.6-8.6) Lymphocytes # (Auto) 1.1 10 ^3/uL (0.4-5.4) Monocytes # (Auto) 0.2 10 ^3/uL (0-1.3) Eosinophils # (Auto) 0 10 ^3/uL (0-0.8) Basophils # (Auto) 0 10 ^3/uL (0-0.2) Nucleated Red Blood Cells 0.1 % Plasma/Serum Blood Alcohol < 3.0 mg/dL (<10) Other Laboratory Tests 03/03/24 07:51 03/01/24 10:45 Brief Hx & Hospital Course: pt was admitted for syncope due to dehydration was treated with ivf and bp improved/pt had laceration in the scalp that was evaluated and treated at er/pt had ct head that was normal/pt had echo done in hospital that was normal/had low potassium that was replaced/had ct abdomen and pelvis that was unremarkable/pt had am cortisol as work up for low sugars that was normal/pt refused to eat her meals and tele psych was consulted and tele psych was arranged but patient refused to be evaluated stating she did not need a psychiatrist /she signed ama and at 1640 Condition at Discharge: Fair (but not cleared-pt signed ama) Final Diagnosis/Problems List signed ama Discharge Disposition: Home SNF Discharge Will this Physician continue t: No (signed ama- pt competent to make this decision ) Discharge Statement: "Patient was advised to return to the ER or call 911 if any headaches, dizziness, shortness of breath, chest pain, abdominal pain, bleeding, fevers, or worsening of medical condition. Patient was counseled about treatment plan, medications, possible side effects, patientverbalized understanding. All questions were answered to the best of my ability. This discharge took greater then 30 minutes in planning, reviewing documentation, counseling the patient, and discussing with other team members." ASSESSMENT ASSESSMENT Assessment Date of Service: Mar 03, 2024 Billing Provider: MADDY WERNER MD Common Visit Codes: 26716-[id number] INP/OBS CARE(MOD) MADDY WERNER MD Mar 08, 2024 12:44
== END 2024-03-03 18:41 | disposition left against medical advice (07) | DRG 389 ==
LOC: ER 10:09 → EDBD 10:09 → TELE 15:09 → TELE-WESTW 03-02 03:00
PROVIDERS: ADMIT Hospitalist; ATTEND Hospitalist
DX: K56.41 Fecal impaction (principal); B37.0 Candidal stomatitis; E87.29 Other acidosis; I24.89 Other forms of acute ischemic heart disease; S01.01XA Laceration without foreign body of scalp, initial encounter; Z53.29 Procedure and treatment not carried out because of patient's decision for other reasons; I10 Essential (primary) hypertension; I95.9 Hypotension, unspecified; E87.6 Hypokalemia; E11.9 Type 2 diabetes mellitus without complications; Z90.710 Acquired absence of both cervix and uterus; Z88.5 Allergy status to narcotic agent; W18.39XA Other fall on same level, initial encounter; Y93.89 Activity, other specified; Y92.89 Other specified places as the place of occurrence of the external cause; Y99.8 Other external cause status
CPT/HCPCS: 36415; 70450; 80048; 80320; 81001; 82533; 82962; 84484; 85025; 93005; 93306; 96374; 99291; 99292; G0378

== ENCOUNTER 2024-03-18 10:47 | Inpatient (IN) | payer OTHER ==
[~2024-03-18] VITALS: Ht 160 cm; Wt 57.7 kg
--- NOTE | 2024-03-18 11:18 | ECG ---
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
--- NOTE | 2024-03-18 11:22 | ED.PDOC ---
History of Present Illness HPI Comments 63 y/o F, with a Hx of anxiety, depression, and homelessness, is BIBA for c/o confusion, today. Per EMS report, patient was found nearby a homeless encampment when bystanders called for concerns on patient acting abnormal from her reported usual baseline self, today. Patient was also reported to have not eaten for the past 2x months in addition to having intermittent acts of self arm and suicidal ideations for unknown period duration of time. On scene, patient had a blood glucose of 124 and all remaining vitals within normal limits. At time of assessment, patient endorses on wanting to "go back home" to where her "" lives. Patient denies having any symptoms at this time. Chief Complaint: General Weakness Time Seen by MD: 10:35 Primary Care Provider: none Reviewed Notes: Nurses Notes, Medications, Allergies Allergies: Coded Allergies: Codeine (Verified Allergy, Intermediate, throat numbness, 02/25/24) Sulfa Antibiotics (Verified Allergy, Intermediate, hives, 02/25/24) Iodine (Verified Allergy, Unknown, 02/25/24) IV contrast pt stated makes her not feel well Information Source: Patient, Emergency Med Personnel Mode of Arrival: EMS Severity: Mild Timing: Hours Duration: Since onset Prehospital treatment: 12 Lead EKG, Accucheck (124), Slot Shift Manager Past Medical History PAST MEDICAL HISTORY: Anxiety, Depression Surgical History: Appendectomy, Hysterectomy 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 Family History Family History: Reviewed,noncontributory to illness, Unknown Social History Smoker: Non-Smoker Alcohol: Denies ETOH Use Drugs: Denies Drug Use Lives In: Homeless Constitutional: denies: chills, diaphoresis, fatigue, fever, malaise, sweats, weakness, others EENTM: denies: blurred vision, double vision, ear bleeding, ear discharge, ear drainage, ear pain, ear ringing, eye pain, eye redness, hearing loss, mouth pain, mouth swelling, nasal discharge, nose bleeding, nose congestion, nose pain, photophobia, tearing, throat pain, throat swelling, voice changes, others Respiratory: denies: cough, hemoptysis, orthopnea, SOB at rest, shortness of breath, SOB with excertion, stridor, wheezing, others Cardiovascular: denies: chest pain, dizzy spells, diaphoresis, Dyspnea on exertion, edema, irregular heart beat, left arm pain, lightheadedness, palpitations, PND, syncope, others Gastrointestinal: denies: abdomen distended, abdominal pain, blood streaked bowels, constipated, diarrhea, dysphagia, difficulty swallowing, hematemesis, melena, nausea, poor appetite, poor fluid intake, rectal bleeding, rectal pain, vomiting, others Genitourinary: denies: abnormal vagina bleeding, burning, dyspareunia, dysuria, flank pain, frequency, hematuria, incontinence, pain, , vagina discharge, urgency, others Neurological: reports: others (confusion ); denies: dizziness, fainting, headache, left sided numbness, left sided weakness, numbness, paresthesia, pre- existing deficit, right sided numbness, right sided weakness, seizure, speech problems, tingling, tremors, weakness Musculoskeletal: denies: back pain, gout, joint pain, joint swelling, muscle pain, muscle stiffness, neck pain, others Integumetry: denies: bruises, change in color, change in hair/nails, dryness, laceration, lesions, lumps, rash, wounds, others Allergic/Immunocompromised: denies: Difficulty Healing, Frequent Infections, Hives, Itching, others Hematologic/Lymphatic: denies: anemia, blood clots, easy bleeding, easy bruising, swollen glands, others Endocrine: denies: excessive hunger, excessive sweating, excessive thirst, excessive urination, flushing, intolerance to cold, intolerance to heat, unexplained weight gain, unexplained weight loss, others Psychiatric: denies: anxiety, bipolar disorder, depression, hopeless, panic disorder, schizophrenia, sleepless, suicidal, others All Other Systems: Reviewed and Negative Physical Exam General Appearance: Mild Distress HEENT: Normal ENT Inspection, Pharynx Normal, TMs Normal Neck: Full Range of Motion, Non-Tender, Normal, Normal Inspection Respiratory: Chest Non-Tender, Lungs Clear, No Accessory Muscle Use, No Respiratory Distress, Normal Breath Sounds Cardiovascular: No Edema, No JVD, No Murmur, No Gallop, Normal Peripheral Pulses, Regular Rate/Rhythm Breast Exam: Deferred Gastrointestinal: No Organomegaly, Non Tender, No Pulsatile Mass, Normal Bowel Sounds, Soft Genitalia: Deferred Pelvic: Deferred Rectal: Deferred Extremities: No calf tenderness, Normal capillary refill, Normal inspection, Normal range of motion, Non-tender, No pedal edema Musculoskeletal : Apperance: Normal Neurologic: Alert, sheet taker II-XII nml as Tested, Motor Weakness, No Sensory Deficits, Other (The patient is seen somewhat confused) Cerebellar Function: Normal Reflexes: Normal Skin: Dry, Normal Color, Warm Lymphatic: No Adenopathy Was a procedure done? Was a procedure done?: No Differential Dx Considerations may include: homelessness, depression, hopelessness, electrolyte imbalance, malnutrition X-Ray, Labs, Meds, VS Vital Signs Date Time Temp Pulse Resp B/P (MAP) Pulse Ox O2 Delivery O2 Flow Rate FiO2 03/18/24 11:06 74 03/18/24 11:01 98.3 87 18 107/88 (94) 98 Lab Test 03/18/24 11:11 Range/Units White Blood Count 6.5 4.4-10.8 10^3/uL Red Blood Count 4.56 4.0-5.20 10^6/uL Hemoglobin 14.1 12.2-16.2 g/dL Hematocrit 41.9 36.0-46.0 % Mean Corpuscular Volume 91.9 80.0-100.0 fL Mean Corpuscular Hemoglobin 30.9 28.0-32.0 pg Mean Corpuscular Hemoglobin Concent 33.6 32.0-36.0 g/dL Red Cell Distribution Width 13.5 11.8-14.3 % Platelet Count 225 140-450 10^3/uL Mean Platelet Volume 10.0 6.9-10.8 fL Neutrophils (%) (Auto) 63.9 37.0-80.0 % Lymphocytes (%) (Auto) 18.3 10.0-50.0 % Monocytes (%) (Auto) 17.1 H 0.0-12.0 % Eosinophils (%) (Auto) 0.3 0.0-7.0 % Basophils (%) (Auto) 0.4 0.0-2.0 % Neutrophils # (Auto) 4.1 1.6-8.6 10 ^3/uL Lymphocytes # (Auto) 1.2 0.4-5.4 10 ^3/uL Monocytes # (Auto) 1.1 0-1.3 10 ^3/uL Eosinophils # (Auto) 0 0-0.8 10 ^3/uL Basophils # (Auto) 0 0-0.2 10 ^3/uL Nucleated Red Blood Cells 0.0 % Sodium Level 134 L 136-145 mmol/L Potassium Level 3.4 L 3.5-5.1 mmol/L Chloride Level 94 L 98-107 mmol/L Carbon Dioxide Level 24 20-31 mmol/L Anion Gap 16 H 5-15 Blood Urea Nitrogen 25 H 9-23 mg/dL Creatinine 0.85 0.550-1.02 mg/dL Glomerular Filtration Rate Calc 77 >90 mL/min BUN/Creatinine Ratio 29.4 H 10.0-20.0 Serum Glucose 94 74-106 mg/dL Calcium Level 10.8 H 8.7-10.4 mg/dL Plasma/Serum Blood Alcohol < 3.0 <10 mg/dL Time of 1ST Reevaluation: 11:05 Reevaluation 1ST: Unchanged Patient Education/Counseling: Diagnosis, Treatment Family Education/Counseling: No Family Present Departure 1 Departure Time of Disposition: 15:21 Impression: Primary Impression: Generalized weakness Additional Impression: Confusion Disposition: ADMITTED INPATIENT Admit to: Med Surg Condition: Fair Critical Care Note Critical Care Time?: No Stability Stability form required: No Heart Score Heart Score: Heart Score Response (Comments) Value History N/A 0 EKG N/A 0 Age N/A 0 Risk Factors N/A 0 Troponin N/A 0 Total 0 I personally scribed for SALLIE GARNER MD ([email or web address]) on 03/18/24 at 11:22. Electronically submitted by Domo Cutler ([email or web address]). SALLIE GARNER MD Mar 18, 2024 11:22
[2024-03-18 11:33] LABS: Basophils # (auto) 0 10 ^3/uL (0-0.2); Basophils % (auto) 0.4 % (0.0-2.0); Eosinophils # (auto) 0 10 ^3/uL (0-0.8); Eosinophils % (auto) 0.3 % (0.0-7.0); Hematocrit 41.9 % (36.0-46.0); Hemoglobin 14.1 g/dL (12.2-16.2); Lymphocytes # (auto) 1.2 10 ^3/uL (0.4-5.4); Lymphocytes % (auto) 18.3 % (10.0-50.0); Mean Corpuscular Hemoglobin 30.9 pg (28.0-32.0); Mean Corpuscular Hgb Conc. 33.6 g/dL (32.0-36.0); Mean Corpuscular Volume 91.9 fL (80.0-100.0); Monocytes # (auto) 1.1 10 ^3/uL (0-1.3); Monocytes % (auto) 17.1 % (0.0-12.0); Neutrophils # (auto) 4.1 10 ^3/uL (1.6-8.6); Neutrophils % (auto) 63.9 % (37.0-80.0); Platelet Count (auto) 225 10^3/uL (140-450); Red Blood Cells 4.56 10^6/uL (4.0-5.20); Red Cell Distribution Width 13.5 % (11.8-14.3); White Blood Cell 6.5 10^3/uL (4.4-10.8)
[2024-03-18 11:34] LABS: Chloride 94 mmol/L (98-107); Potassium 3.4 mmol/L (3.5-5.1); Sodium 134 mmol/L (136-145)
[2024-03-18 11:35] LABS: Anion Gap 16 (5-15); Calcium 10.8 mg/dL (8.7-10.4); Carbon Dioxide 24 mmol/L (20-31)
[2024-03-18 11:40] LABS: Glucose 94 mg/dL (74-106)
[2024-03-18 11:41] LABS: BUN/Creatinine Ratio 29.4 (10.0-20.0); Blood Alcohol < 3.0 mg/dL (<10); Blood Urea Nitrogen 25 mg/dL (9-23)
[2024-03-18] MEDS ORDERED: DOCUSATE SOD 100 MG CAP PO PRN (15:30)
[2024-03-18] MEDS ORDERED: SODIUM CHLORIDE 0.9% 1,000 ML IV SCH (15:30)
[2024-03-18] MEDS ORDERED: hydrALAZINE HCL 20 MG/ML VL IV PRN (15:30)
[2024-03-18] MEDS ORDERED: ACETAMINOPHEN 325 MG TAB PO PRN (15:30)
[2024-03-18] MEDS ORDERED: ONDANSETRON HCL 4 MG/2 ML VIAL IV PRN (15:30)
[2024-03-18] MEDS: SODIUM CHLORIDE 0.9% 500 ML IV ONE (16:27)
[2024-03-18] MEDS: POTASSIUM CHL 20 Meq TABLET PO ONE (16:30)
[2024-03-18] MEDS ORDERED: MORPHINE SULFATE INJ 2 MG/ml SYRG IV PRN (16:30)
[2024-03-18] MEDS ORDERED: NITROGLYCERIN 0.4 MG SL TAB SL PRN (16:30)
--- NOTE | 2024-03-18 16:37 | DVHHP2 ---
History of Present Illness Reason for Visit: Generalized weakness History of Present Illness The patient is a 63 years old female with past medical history of depression, anxiety, and hypotension who presented to [facility] ED for evaluation of generalized weakness. Patient has been in a nearby homeless encampment found by the pedestrian acting abnormal behavior, poor insight, disorganized thought process, and confusion states. Patient reports she has not be eating for the past 2 months, abdominal tenderness, loss of weight, having intermittent acts of self arm and suicidal ideations for unknown period of time. Patient was seen and evaluated in the ED, laboratory data shows WBC 6.5, platele t 225, sodium 134, potassium 3.4, BUN 25, creatinine 0.8, glucose 84, calcium 10.8, blood pressure 107/88, heart rate 74, temperature 98.3 F, O2 saturation 99% on room air. On my assessment, patient denied chest pain, no headache, no dizziness, no diaphoresis, no shortness of breath, no nausea, no vomiting, no fever, no chills. Patient was admitted for further evaluation and medical management. Past Medical History Anxiety, Depression, HTN Past Surgical History Appendectomy, Hysterectomy Family History Reviewed, noncontributory to the management of this case. Past Social History The patient lives at home, denies smoking, alcohol or illicit drugs abuse. Review of Systems Constitutional: Yes: Weakness; No: Fever, Chills, Sweats, Malaise, Other Eyes: No: Pain, Vision change, Conjunctivae inflammation, Eyelid inflammation, Other, Redness ENT: No: Ear pain, Ear discharge, Nose pain, Nose discharge, Nose congestion, Mouth pain, Mouth swelling, Throat pain, Throat swelling, Other Respiratory: No: Cough, Dry, Shortness of breath, SOB with excertion, Wheezing, Hemoptysis, Pleuritic Pain, Sputum, Wheezing, Other Cardiovascular: No: Chest Pain, Palpitations, Orthopnea, Paroxysmal Noc. Dyspnea, Edema, Lt Headedness, Other Gastrointestinal: No: Nausea, Vomiting, Abdominal Pain, Diarrhea, Constipation, Melena, Hematochezia, Other Genitourinary: No Dysuria, No Frequency, No Incontinence, No Hematuria, No Retention, No Other Musculoskeletal: No: other, neck pain, shoulder pain, arm pain, back pain, hand pain, leg pain, foot pain Skin: No: Rash, Lesions, Jaundice, Bruising, Other Neurological: No: Weakness, Numbness, Incoordination, Change in speech, Confusion, Seizures, Other Allergies: Coded Allergies: Codeine (Verified Allergy, Intermediate, throat numbness, 02/25/24) Sulfa Antibiotics (Verified Allergy, Intermediate, hives, 02/25/24) Iodine (Verified Allergy, Unknown, 02/25/24) IV contrast pt stated makes her not feel well Medications Current Medications Medications Dose Ordered Sig/Francisco Route Start Time Stop Time Status Last Admin Dose Admin Ondansetron HCl 4 mg Q4HP PRN IV 03/18/24 15:30 Docusate Sodium 100 mg BIDPRN PRN PO 03/18/24 15:30 Acetaminophen 650 mg Q6HP PRN PO 03/18/24 15:30 Hydralazine HCl 10 mg Q6HP PRN IV 03/18/24 15:30 Dextrose/Sodium Chloride 1,000 ml @ 75 mls/hr [id number] IV 03/18/24 16:30 UNV Nitroglycerin 0.4 mg Q5MINP PRN SL 03/18/24 16:30 UNV Morphine Sulfate 2 mg Q30M PRN IV 03/18/24 16:30 UNV Famotidine 20 mg DAILY IV 03/19/24 10:00 UNV Exam Vital Signs Vital Signs Date Time Temp Pulse Resp B/P (MAP) Pulse Ox O2 Delivery O2 Flow Rate FiO2 03/18/24 16:26 Room Air* 0 21 03/18/24 16:24 98.2 87 17 107/60 (76) 99 98.2 General Appearance: Alert, Oriented X3, Cooperative, No acute distress HEENT: Atraumatic, PERRLA, EOMI, Mucous membr. moist/pink Respiratory: Clear to auscultation, Normal air movement Cardiovascular: Regular rate, Normal S1, Normal S2, No murmurs Abdominal: Normal bowel sounds, Soft, No tenderness, No hepatospenomegaly Extremities: No clubbing, No cyanosis, No edema, Normal pulses, No tenderness/swelling Skin: No rashes, No breakdown, No significant lesion Neuro: Normal speech, Normal tone, Sensation intact, Cranial nerves 3-12 NL, Reflexes 2+, Other (Generalized weakness) Psych/Mental Status: Other (Disorganized thought process, poor insight.) Labs/Xrays Labs Test 03/18/24 11:11 Range/Units White Blood Count 6.5 4.4-10.8 10^3/uL Red Blood Count 4.56 4.0-5.20 10^6/uL Hemoglobin 14.1 12.2-16.2 g/dL Hematocrit 41.9 36.0-46.0 % Mean Corpuscular Volume 91.9 80.0-100.0 fL Mean Corpuscular Hemoglobin 30.9 28.0-32.0 pg Mean Corpuscular Hemoglobin Concent 33.6 32.0-36.0 g/dL Red Cell Distribution Width 13.5 11.8-14.3 % Platelet Count 225 140-450 10^3/uL Mean Platelet Volume 10.0 6.9-10.8 fL Neutrophils (%) (Auto) 63.9 37.0-80.0 % Lymphocytes (%) (Auto) 18.3 10.0-50.0 % Monocytes (%) (Auto) 17.1 H 0.0-12.0 % Eosinophils (%) (Auto) 0.3 0.0-7.0 % Basophils (%) (Auto) 0.4 0.0-2.0 % Neutrophils # (Auto) 4.1 1.6-8.6 10 ^3/uL Lymphocytes # (Auto) 1.2 0.4-5.4 10 ^3/uL Monocytes # (Auto) 1.1 0-1.3 10 ^3/uL Eosinophils # (Auto) 0 0-0.8 10 ^3/uL Basophils # (Auto) 0 0-0.2 10 ^3/uL Nucleated Red Blood Cells 0.0 % Sodium Level 134 L 136-145 mmol/L Potassium Level 3.4 L 3.5-5.1 mmol/L Chloride Level 94 L 98-107 mmol/L Carbon Dioxide Level 24 20-31 mmol/L Anion Gap 16 H 5-15 Blood Urea Nitrogen 25 H 9-23 mg/dL Creatinine 0.85 0.550-1.02 mg/dL Glomerular Filtration Rate Calc 77 >90 mL/min BUN/Creatinine Ratio 29.4 H 10.0-20.0 Serum Glucose 94 74-106 mg/dL Calcium Level 10.8 H 8.7-10.4 mg/dL Plasma/Serum Blood Alcohol < 3.0 <10 mg/dL Assessment/Plan Assessment/Plan Generalized weakness Confusion state Electrolyte imbalance Plan 1. Admit to telemetry unit 2. Breathing treatment 3. Pain control management 4. Management of fluids and electrolytes 5. Consultation for GI/hospitalist 6. Diagnostic tests chest x-ray 7. DVT prophylaxis-on SCDs 8. Repeat labs CBC, CMP in a.m. 9. Continue with current medical management 10. Treatment plan discussed with patient/daughter and RN. Patient/daughter verbalized understanding. Plan discussed with: Patient, Spouse (At bedside), Daughter, Other (RN) My Orders Orders - ANNA WHITEHEAD DNP Procedure Category Date Status Time Allergies JUSTIN 03/18/24 In Process 15:28 Code Status CODE 03/18/24 Transmitted 15:28 Oxygen Per Hour RT 03/18/24 Transmitted 15:28 Ondansetron Hcl PHA 03/18/24 In Process (Zofran) 15:30 Docusate Sodium PHA 03/18/24 In Process Capsule (Colace 15:30 Fall Risk Precautions JUSTIN 03/18/[address] 15:28 Complete Blood Count LAB 03/19/24 Verified 04:00 Comprehensive LAB 03/19/24 Verified Metabolic Panel 04:00 Cardiac DIET 03/18/24 Transmitted Diet-2gna,Lofat,Lochol Dinner Condition: Serious JUSTIN 03/18/24 In Process 15:28 Acetaminophen Tablet PHA 03/18/24 In Process (Tylenol Tablet) 15:30 Sequential JUSTIN 03/18/24 In Process Compression Device Hydralazine Injection PHA 03/18/24 In Process (Apresoline Inject 15:30 * Gi D[facility] Stained Glass CONS 03/18/24 Transmitted 16:24 D5w/Sod Chlo 0.9% PHA 03/18/24 Logged (D5w Ns 0.9%) 16:30 * Psychiatric Consult CONS 03/18/24 Transmitted 16:24 Potassium Chl PHA 03/18/24 Logged 20meq/100ml 16:30 Admit ADMIT 03/18/24 Transmitted 16:24 Nitroglycerin PHA 03/18/24 Logged Sublingual (Ntrostat 16:30 Morphine Sulfate PHA 03/18/24 Logged Injection 16:30 Notify Md Of Changes JUSTIN 03/18/24 In Process From Base 16:24 Geneticist For JUSTIN 03/18/24 In Process 24 Hours 16:24 Emergency Dysrhythmia JUSTIN 03/18/24 In Process Protocol 16:24 Rhythm Strips Once JUSTIN 03/18/24 In Process Every Shift 16:24 Oxygen By Nasal RT 03/18/24 Transmitted Cannula 16:24 Famotidine Injection PHA 03/19/24 Logged (Pepcid Injection) 10:00 Lorazepam 2mg/Ml Inj PHA 03/18/24 Transmitted (Ativan Inj) 16:45 Melatonin (Melatonin) PHA 03/18/24 Transmitted 22:00 Problem List: (1) Generalized weakness (2) Confusion state (3) Electrolyte imbalance Date of Service: Mar 18, 2024 Billing Provider: ANNA WHITEHEAD DNP Common Visit Codes: [id number] INP/OBS CARE (HIGH) ANNA WHITEHEAD DNP Mar 18, 2024 16:37
[2024-03-18] MEDS ORDERED: LORazepam 2MG/ML-1ML VIAL IV PRN (16:45)
[2024-03-18] MEDS: POTASSIUM CHL 20MEQ/100ML 100 ML IV ONE (18:25)
[2024-03-18] MEDS: D5W/SOD CHLO 0.9% 1,000 ML IV SCH (18:25)
[2024-03-18 18:53] VITALS: RESP 18
[2024-03-18 19:07] VITALS: BP 88/60; PULSE 83; RESP 18; TEMP 97.9; O2SAT 98
[2024-03-18] MEDS ORDERED: OLAN1TAB7 PO (19:14)
[2024-03-18] MEDS ORDERED: GAB100C PO (19:14)
[2024-03-18] MEDS ORDERED: QUET50TA27 PO (19:14)
[2024-03-18] MEDS ORDERED: PARO1TAB33 PO (19:14)
[2024-03-18] MEDS ORDERED: ESTR1DIS5 TD (19:14)
[2024-03-18] MEDS ORDERED: HYDR-3682 PO (19:14)
[2024-03-18 19:18] LABS: Urine Bacteria FEW /hpf (None Seen); Urine Blood Negative /uL (Negative); Urine Clarity Turbid (Clear); Urine Color Yellow (Yellow); Urine Hyaline Cast MOD /lpf (0 - 2); Urine Mucus MODERATE (None Seen); Urine Protein, UAD 1+ (Negative); Urine Specific Gravity 1.027 (1.001-1.035); Urine Urobilinogen 3 mg/dL (Negative); Urine WBC 1 /hpf (0 - 5)
[2024-03-18 19:31] LABS: Amphetamine Screen, Urine Neg (NEGATIVE); Benzodiazephine Screen, Urine Neg (NEGATIVE)
[2024-03-18 19:32] LABS: Barbiturate Scree,Urine Neg (NEGATIVE); Cannabinoid Screen, Urine Neg (NEGATIVE); Cocaine Screen, Urine Neg (NEGATIVE); Opiate Scree,Urine Neg (NEGATIVE); Phencyclidine Screen, Urine Neg (NEGATIVE)
[2024-03-18 20:00] VITALS: PULSE 102; PULSE 82; RESP 18; O2SAT 99
[2024-03-18 21:00] VITALS: BP 100/56; PULSE 82; RESP 18; TEMP 98.1; O2SAT 99
[2024-03-18] MEDS: MELATONIN 5 MG TAB PO ONE (21:43)
[2024-03-19 01:00] VITALS: BP 94/54; PULSE 74; RESP 18; TEMP 97.7; O2SAT 96
[2024-03-19 05:00] VITALS: BP 98/52; PULSE 75; RESP 18; TEMP 97.9; O2SAT 95
[2024-03-19 07:26] LABS: Hematocrit 36.3 % (36.0-46.0); Hemoglobin 12.6 g/dL (12.2-16.2); Mean Corpuscular Hemoglobin 31.2 pg (28.0-32.0); Mean Corpuscular Hgb Conc. 34.7 g/dL (32.0-36.0); Platelet Count (auto) 195 10^3/uL (140-450); Red Blood Cells 4.03 10^6/uL (4.0-5.20); Red Cell Distribution Width 13.2 % (11.8-14.3); White Blood Cell 3.9 10^3/uL (4.4-10.8)
[2024-03-19 07:37] LABS: Band Neutrophils % (manual) 0; Basophils % (manual) 0 (0.0-2.0); Blast Cells 0; Metamyelocytes % 0; Myelocytes % 0; Promyelocytes % 0; Reactive Lymphocytes 0
[2024-03-19 07:42] LABS: Alanine Aminotransferase 30 U/L (7-40); Albumin 3.7 g/dL (3.2-4.8); Alkaline Phosphatase 76 U/L (46-116); Anion Gap 12 (5-15); Aspartate Aminotransferase 16 U/L (13-40); BUN/Creatinine Ratio 32.3 (10.0-20.0); Bilirubin, Total 0.8 mg/dL (0.2-1.0); Blood Urea Nitrogen 20 mg/dL (9-23); Calcium 9.9 mg/dL (8.7-10.4); Carbon Dioxide 24 mmol/L (20-31); Chloride 99 mmol/L (98-107); Glucose 102 mg/dL (74-106); Sodium 135 mmol/L (136-145); Total Protein 6.1 g/dL (5.7-8.2)
[2024-03-19 08:30] VITALS: PULSE 69
[2024-03-19 08:39] LABS: Eosinophils % (manual) 2 (0-7); Lymphocytes % (manual) 20 (10.0-50.0); Monocytes % (manual) 29 (0-12)
[2024-03-19] MEDS: FAMOTIDINE (10MG/ML) 2ML VL IV SCH (09:15)
[2024-03-19 10:01] LABS: Platelet Estimate Adequate
[2024-03-19] MEDS: QUEtiapine FUMARATE 100 MG TAB PO SCH (11:00)
[2024-03-19] MEDS: D5W/SOD CHL 0.9%/KCL 40MEQ 1,000 ML IV ONE (13:13)
--- NOTE | 2024-03-19 13:46 | DVHPN2 ---
Subjective Patient with drawn and denies any symptoms. Reviewed: Care Plan, H&P, Labs, Medications, Previous Orders Changes from previous H/P or p: No Changes General: Per HPI Eyes: No Pain, No Vision change, No Conjunctivae inflammation, No Eyelid inflammation, No Other, No Redness ENT: No Ear pain, No Ear discharge, No Nose pain, No Nose discharge, No Nose congestion, No Mouth pain, No Mouth swelling, No Throat pain, No Throat swelling, No Other Cardiovascular: No Chest Pain, No Palpitations, No Orthopnea, No Paroxysmal Noc. Dyspnea, No Edema, No Lt Headedness, No Other Respiratory: No Cough, No Dry, No Shortness of breath, No SOB with excertion, No Wheezing, No Hemoptysis, No Pleuritic Pain, No Sputum, No Other Gastrointestinal: No Nausea, No Vomiting, No Abdominal Pain, No Diarrhea, No Constipation, No Melena, No Hematochezia, No Other Genitourinary: No Dysuria, No Frequency, No Incontinence, No Hematuria, No Retention, No Other Musculoskeletal: No other, No neck pain, No shoulder pain, No arm pain, No back pain, No hand pain, No leg pain, No foot pain Skin: No Rash, No Lesions, No Jaundice, No Bruising, No Other Objective Vitals Vital Signs Date Time Temp Pulse Resp B/P (MAP) Pulse Ox O2 Delivery O2 Flow Rate FiO2 03/19/24 05:00 97.9 75 18 98/52 (67) 95 97.9 03/18/24 20:00 Room Air* 0 21 Intake/Output Intake and Output 03/19/24 07:00 Intake Total 100 ml Balance 100 ml Intake IV Total 100 ml # Voids 2 General Appearance: Alert, Cooperative, No acute distress HEENT: Atraumatic, PERRLA Lungs: Clear to auscultation, Normal air movement Cardiovascular: Normal S1, Normal S2 Musculoskeletal: Normal sensory function, Normal motor function Psych/Mental Status: Mood NL ( withdrawn) Medications Current Medications Medications Dose Ordered Sig/Francisco Route Start Time Stop Time Status Last Admin Dose Admin Ondansetron HCl 4 mg Q4HP PRN IV 03/18/24 15:30 Docusate Sodium 100 mg BIDPRN PRN PO 03/18/24 15:30 Acetaminophen 650 mg Q6HP PRN PO 03/18/24 15:30 Hydralazine HCl 10 mg Q6HP PRN IV 03/18/24 15:30 Nitroglycerin 0.4 mg Q5MINP PRN SL 03/18/24 16:30 Morphine Sulfate 2 mg Q30M PRN IV 03/18/24 16:30 Famotidine 20 mg DAILY IV 03/19/24 10:00 03/19/24 09:15 20 MG Lorazepam 1 mg Q8HP PRN IV 03/18/24 16:45 Quetiapine Fumarate 100 mg BID PO 03/19/24 11:00 Laboratory Results Laboratory Tests 03/19/24 05:43 Chemistry Test 03/19/24 05:43 Albumin 3.7 g/dL (3.2-4.8) Calcium Level 9.9 mg/dL (8.7-10.4) Total Protein 6.1 g/dL (5.7-8.2) LFT Test 03/19/24 05:43 Alanine Aminotransferase (ALT) 30 U/L (7-40) Alkaline Phosphatase 76 U/L (46-116) Aspartate Amino Transferase (AST) 16 U/L (13-40) Total Bilirubin 0.8 mg/dL (0.2-1.0) Urinalysis Test 03/18/24 17:23 Urine Color Yellow (Yellow) Urine Clarity Turbid (Clear) H Urine pH 6.0 (5.0-9.0) Urine Specific [place] 1.027 (1.001-1.035) Urine Protein 1+ (Negative) H Urine Ketones 2+ (Negative) H Urine Blood Negative /uL (Negative) Urine Nitrite Negative (Negative) Urine Bilirubin 1+ (Negative) H Urine Urobilinogen 3 mg/dL (Negative) H Urine Leukocyte Esterase Negative /uL (Negative) Urine RBC 1 /hpf (0 - 4) Urine WBC 1 /hpf (0 - 5) Urine Squamous Epithelial Cells Many /hpf (<5) Urine Bacteria Few /hpf (None Seen) H Urine Hyaline Casts Mod /lpf (0 - 2) Urine Mucus Moderate (None Seen) Urine Glucose Normal mg/dL (Normal) Microbiology Microbiology Date/Time Source Procedure Growth Status 03/18/24 20:26 Nose MRSA Screen - Final Complete Labs and/or images reviewed: Labs reviewed by me, Image(s) reviewed by me Assessment/Plan Assessment/Plan Impression: -metabolic encephalopathy -? Acute psychosis -hypokalemia -homelessness -history of anxiety, depression Plan: -psychiatry consultation: Patient refusing -social service consultation for homelessness, pending -Potassium replacement -IV hydration -Restart Seroquel, QTC assessed, within normal limits -repeat labs in a.m., DC planning for tomorrow elementary school social worker have addressed all patient needs Total time spent with patient discussing and formulating plan of care: 35 minutes. This medical document was created using an electronic medical record system with [employer] dictation system. Although this document has been carefully reviewed, there may still be some phonetic and typographical errors. These areas are purely typographical due to imperfections of the software programs, and do not reflect any compromise in the patient's medical care. Plan discussed with: Patient, Other (RN) My Orders Orders - JOSEPH ZAMORA NP Procedure Category Date Status Time D5w/Sod Chl 0.9%/Kcl PHA 03/19/24 In Process 40meq 11:00 Quetiapine Fumarate PHA 03/19/24 In Process Tablet (Seroquel Tab 11:00 Comprehensive LAB 03/20/24 Verified Metabolic Panel 04:00 Magnesium LAB 03/20/24 Verified 04:00 Date of Service: Mar 19, 2024 Billing Provider: JOSEPH ZAMORA NP Common Visit Codes: [id number] INP/OBS CARE(HIGH) JOSEPH ZAMORA NP Mar 19, 2024 13:46
[2024-03-19 20:00] VITALS: PULSE 87
[2024-03-20] VITALS (8 sets, daily range): BP systolic 100–110; BP diastolic 48–60; PULSE 70–88; RESP 15–18; TEMP 98–98.2; O2SAT 96–99
[2024-03-20 06:08] LABS: Alanine Aminotransferase 27 U/L (7-40); Albumin 3.3 g/dL (3.2-4.8); Alkaline Phosphatase 67 U/L (46-116); Anion Gap 6 (5-15); Aspartate Aminotransferase 16 U/L (13-40); Blood Urea Nitrogen 11 mg/dL (9-23); Calcium 9.3 mg/dL (8.7-10.4); Carbon Dioxide 26 mmol/L (20-31); Chloride 106 mmol/L (98-107); Magnesium 1.7 mg/dL (1.6-2.6); Sodium 138 mmol/L (136-145)
[2024-03-20 06:09] LABS: Bilirubin, Total 0.7 mg/dL (0.2-1.0)
[2024-03-20 06:19] LABS: Glucose 115 mg/dL (74-106); Total Protein 5.3 g/dL (5.7-8.2)
--- NOTE | 2024-03-20 09:36 | DVHPN2 ---
Subjective Patient reporting suprapubic pain and constipation. Reviewed: Care Plan, H&P, Labs, Medications, Previous Orders Changes from previous H/P or p: No Changes General: Per HPI Eyes: No Pain, No Vision change, No Conjunctivae inflammation, No Eyelid inflammation, No Other, No Redness ENT: No Ear pain, No Ear discharge, No Nose pain, No Nose discharge, No Nose congestion, No Mouth pain, No Mouth swelling, No Throat pain, No Throat swelling, No Other Cardiovascular: No Chest Pain, No Palpitations, No Orthopnea, No Paroxysmal Noc. Dyspnea, No Edema, No Lt Headedness, No Other Respiratory: No Cough, No Dry, No Shortness of breath, No SOB with excertion, No Wheezing, No Hemoptysis, No Pleuritic Pain, No Sputum, No Other Gastrointestinal: No Nausea, No Vomiting, No Abdominal Pain, No Diarrhea, No Constipation, No Melena, No Hematochezia, No Other Genitourinary: No Dysuria, No Frequency, No Incontinence, No Hematuria, No Retention, No Other Musculoskeletal: No other, No neck pain, No shoulder pain, No arm pain, No back pain, No hand pain, No leg pain, No foot pain Skin: No Rash, No Lesions, No Jaundice, No Bruising, No Other Objective Vitals Vital Signs Date Time Temp Pulse Resp B/P (MAP) Pulse Ox O2 Delivery O2 Flow Rate FiO2 03/20/24 09:00 98.1 70 15 101/48 (65) 96 98.1 03/19/24 20:00 Room Air* 0 21 Intake/Output Intake and Output 03/20/24 07:00 Intake Total 880 ml Balance 880 ml Intake Oral 880 ml # Voids 4 # Bowel Movements 2 General Appearance: Alert, Oriented X3, Cooperative, No acute distress HEENT: Atraumatic, PERRLA Lungs: Clear to auscultation, Normal air movement Cardiovascular: Normal S1, Normal S2 Musculoskeletal: Normal sensory function, Normal motor function Psych/Mental Status: Mood NL ( withdrawn) Medications Current Medications Medications Dose Ordered Sig/Francisco Route Start Time Stop Time Status Last Admin Dose Admin Ondansetron HCl 4 mg Q4HP PRN IV 03/18/24 15:30 Docusate Sodium 100 mg BIDPRN PRN PO 03/18/24 15:30 Acetaminophen 650 mg Q6HP PRN PO 03/18/24 15:30 Hydralazine HCl 10 mg Q6HP PRN IV 03/18/24 15:30 Nitroglycerin 0.4 mg Q5MINP PRN SL 03/18/24 16:30 Morphine Sulfate 2 mg Q30M PRN IV 03/18/24 16:30 Famotidine 20 mg DAILY IV 03/19/24 10:00 03/19/24 09:15 20 MG Lorazepam 1 mg Q8HP PRN IV 03/18/24 16:45 Quetiapine Fumarate 100 mg BID PO 03/19/24 11:00 Magnesium Oxide 400 mg DAILY PO 03/20/24 10:00 Metronidazole 500 mg Q8HR PO 03/20/24 14:00 Ceftriaxone Sodium 50 ml @ 100 mls/hr DAILY@ IV 03/20/24 09:15 Laboratory Results Laboratory Tests 03/19/24 05:43 03/20/24 05:17 Chemistry Test 03/20/24 05:17 Albumin 3.3 g/dL (3.2-4.8) Calcium Level 9.3 mg/dL (8.7-10.4) Magnesium Level 1.7 mg/dL (1.6-2.6) Total Protein 5.3 g/dL (5.7-8.2) L LFT Test 03/20/24 05:17 Alanine Aminotransferase (ALT) 27 U/L (7-40) Alkaline Phosphatase 67 U/L (46-116) Aspartate Amino Transferase (AST) 16 U/L (13-40) Total Bilirubin 0.7 mg/dL (0.2-1.0) Urinalysis Test 03/18/24 17:23 Urine Color Yellow (Yellow) Urine Clarity Turbid (Clear) H Urine pH 6.0 (5.0-9.0) Urine Specific [place] 1.027 (1.001-1.035) Urine Protein 1+ (Negative) H Urine Ketones 2+ (Negative) H Urine Blood Negative /uL (Negative) Urine Nitrite Negative (Negative) Urine Bilirubin 1+ (Negative) H Urine Urobilinogen 3 mg/dL (Negative) H Urine Leukocyte Esterase Negative /uL (Negative) Urine RBC 1 /hpf (0 - 4) Urine WBC 1 /hpf (0 - 5) Urine Squamous Epithelial Cells Many /hpf (<5) Urine Bacteria Few /hpf (None Seen) H Urine Hyaline Casts Mod /lpf (0 - 2) Urine Mucus Moderate (None Seen) Urine Glucose Normal mg/dL (Normal) Microbiology Microbiology Date/Time Source Procedure Growth Status 03/18/24 20:26 Nose MRSA Screen - Final Complete Labs and/or images reviewed: Labs reviewed by me, Image(s) reviewed by me Assessment/Plan Assessment/Plan Impression: -metabolic encephalopathy -? Acute psychosis -hypokalemia -homelessness -history of anxiety, depression Plan: Events: Continues to be hypokalemic. Reports abdominal pain, located in suprapubic area as well as constipation. Review of CT scan performed one month ago reveals constipation. Patient reports similar complaints from her previous admission. -start Flagyl 500 mg p.o. t.i.d. -repeat potassium replacement with 80 mEq IV -bowel regimen -psychiatry consultation: Patient refusing. Restarted Seroquel. Patient continues to refuse. -social service consultation for homelessness, pending -Potassium replacement -IV hydration -repeat labs, continue replete potassium. Discharge once potassium has improved and patient has bowel movement. Total time spent with patient discussing and formulating plan of care: 35 minutes. This medical document was created using an electronic medical record system with [employer] dictation system. Although this document has been carefully reviewed, there may still be some phonetic and typographical errors. These areas are purely typographical due to imperfections of the software programs, and do not reflect any compromise in the patient's medical care. Plan discussed with: Patient, Other (Rn) My Orders Orders - JOSEPH ZAMORA NP Procedure Category Date Status Time Quetiapine Fumarate PHA 03/19/24 In Process Tablet (Seroquel Tab 11:00 * Hospice Patient Care Secretary CONS 03/19/24 Transmitted Consult Potassium Chloride PHA 03/20/24 In Process (Potassium Chloride). 09:15 Magnesium Oxide PHA 03/20/24 In Process Tablet (Mag-Ox Tablet) 10:00 Metronidazole Tablet PHA 03/20/24 In Process (Flagyl Tablet) 14:00 Ceftriaxone 1gm/50ml PHA 03/20/24 In Process D5w (Rocephin) 09:15 Date of Service: Mar 20, 2024 Billing Provider: JOSEPH ZAMORA NP Common Visit Codes: [id number] INP/OBS CARE(HIGH) JOSEPH ZAMORA NP Mar 20, 2024 09:36
[2024-03-20] MEDS: MAGNESIUM OXIDE 400 MG TAB PO SCH (11:57)
[2024-03-20] MEDS: cefTRIAXone 1GM/50ML D5W 50 ML IV SCH (11:57)
[2024-03-20] MEDS: LACTULOSE 20Gm/30ML SOLN PO ONE (11:57)
[2024-03-20] MEDS: METOCLOPRAMIDE HCL 5MG/ml INJ 2ml VIAL IV ONE (11:58)
[2024-03-20] MEDS: POTASSIUM CHLORIDE 60 MEQ, LIDOCAINE 1% (LOCAL ANESTH.) 6 ML in SODIUM CHL 0.9% 500 ML IV ONE (13:21)
[2024-03-20] MEDS: metroNIDAZOLE 500 MG TAB PO SCH (16:06)
[2024-03-20] MEDS: diphenhdrAMINE HCL 25 MG CAP PO ONE (23:13)
[2024-03-21 08:00] VITALS: PULSE 71; O2SAT 98
[2024-03-21 09:00] VITALS: BP 109/59; PULSE 73; RESP 21; TEMP 97.9; O2SAT 96
[2024-03-21] MEDS ORDERED: NITR-87 PO (10:43)
--- NOTE | 2024-03-21 10:50 | DVHDS2 ---
Discharge Summary Date of Admission Mar 18, 2024 at 16:24 Date of Discharge: Mar 21, 2024 Admitting Diagnosis Generalized weakness Labs/Diagnostic Data: Laboratory Results Test 03/21/24 09:01 03/20/24 10:15 03/20/24 05:17 03/19/24 05:43 Stool Occult Blood Positive (Negative) Stool Occult Blood Sample #3 (Negative) Sodium Level 138 mmol/L (136-145) Chloride Level 106 mmol/L (98-107) Carbon Dioxide Level 26 mmol/L (20-31) Anion Gap 6 (5-15) Blood Urea Nitrogen 11 mg/dL (9-23) Creatinine 0.44 mg/dL (0.550-1.02) Glomerular Filtration Rate Calc 109 mL/min (>90) BUN/Creatinine Ratio 25.0 (10.0-20.0) Serum Glucose 115 mg/dL (74-106) Calcium Level 9.3 mg/dL (8.7-10.4) Total Bilirubin 0.7 mg/dL (0.2-1.0) Aspartate Amino Transferase (AST) 16 U/L (13-40) Alanine Aminotransferase (ALT) 27 U/L (7-40) Alkaline Phosphatase 67 U/L (46-116) Total Protein 5.3 g/dL (5.7-8.2) Albumin 3.3 g/dL (3.2-4.8) White Blood Count 3.9 10^3/uL (4.4-10.8) Red Blood Count 4.03 10^6/uL (4.0-5.20) Hemoglobin 12.6 g/dL (12.2-16.2) Hematocrit 36.3 % (36.0-46.0) Mean Corpuscular Volume 90.0 fL (80.0-100.0) Mean Corpuscular Hemoglobin 31.2 pg (28.0-32.0) Mean Corpuscular Hemoglobin Concent 34.7 g/dL (32.0-36.0) Red Cell Distribution Width 13.2 % (11.8-14.3) Platelet Count 195 10^3/uL (140-450) Mean Platelet Volume 10.5 fL (6.9-10.8) Neutrophils (%) (Auto) % (37.0-80.0) Lymphocytes (%) (Auto) % (10.0-50.0) Monocytes (%) (Auto) % (0.0-12.0) Basophils (%) (Auto) % (0.0-2.0) Neutrophils # (Auto) 10 ^3/uL (1.6-8.6) Lymphocytes # (Auto) 10 ^3/uL (0.4-5.4) Monocytes # (Auto) 10 ^3/uL (0-1.3) Differential Total Cells Counted 100.0 (100) Neutrophils % (Manual) 49 (37.0-80.0) Band Neutrophils % (Manual) 0 Lymphocytes % (Manual) 20 (10.0-50.0) Monocytes % (Manual) 29 (0-12) Eosinophils % (Manual) 2 (0-7) Basophils % (Manual) 0 (0.0-2.0) Metamyelocytes % (manual) 0 Myelocytes % (Manual) 0 Promyelocytes % (Manual) 0 Blast Cells % (Manual) 0 Reactive Lymphocytes 0 Platelet Estimate Adequate Test 03/18/24 17:23 03/18/24 11:11 Urine Color Yellow (Yellow) Urine Clarity Turbid (Clear) Urine pH 6.0 (5.0-9.0) Urine Specific [place] 1.027 (1.001-1.035) Urine Protein 1+ (Negative) Urine Ketones 2+ (Negative) Urine Blood Negative /uL (Negative) Urine Nitrite Negative (Negative) Urine Bilirubin 1+ (Negative) Urine Urobilinogen 3 mg/dL (Negative) Urine Leukocyte Esterase Negative /uL (Negative) Urine RBC 1 /hpf (0 - 4) Urine WBC 1 /hpf (0 - 5) Urine Squamous Epithelial Cells Many /hpf (<5) Urine Bacteria Few /hpf (None Seen) Urine Hyaline Casts Mod /lpf (0 - 2) Urine Mucus Moderate (None Seen) Urine Glucose Normal mg/dL (Normal) Urine Opiates Screen Neg (NEGATIVE) Urine Fentanyl Screen Neg (NEGATIVE) Urine Barbiturates Screen Neg (NEGATIVE) Urine Phencyclidine Screen Neg (NEGATIVE) Urine Amphetamines Screen Neg (NEGATIVE) Urine Benzodiazepines Screen Neg (NEGATIVE) Urine Cocaine Screen Neg (NEGATIVE) Urine Cannabinoids Screen Neg (NEGATIVE) Eosinophils (%) (Auto) 0.3 % (0.0-7.0) Eosinophils # (Auto) 0 10 ^3/uL (0-0.8) Basophils # (Auto) 0 10 ^3/uL (0-0.2) Nucleated Red Blood Cells 0.0 % Plasma/Serum Blood Alcohol < 3.0 mg/dL (<10) Other Laboratory Tests 03/20/24 05:17 03/19/24 05:43 Brief Hx & Hospital Course: History of Present Illness The patient is a 63 years old female with past medical history of depression, anxiety, and hypotension who presented to [facility] ED for evaluation of generalized weakness. Patient has been in a nearby homeless encampment found by the pedestrian acting abnormal behavior, poor insight, disorganized thought process, and confusion states. Patient reports she has not be eating for the past 2 months, abdominal tenderness, loss of weight, having intermittent acts of self arm and suicidal ideations for unknown period of time. Patient was seen and evaluated in the ED, laboratory data shows WBC 6.5, platelet 225, sodium 134, potassium 3.4, BUN 25, creatinine 0.8, glucose 84, calcium 10.8, blood pressure 107/88, heart rate 74, temperature 98.3 F, O2 saturation 99% on room air. On my assessment, patient denied chest pain, no headache, no dizziness, no diaphoresis, no shortness of breath, no nausea, no vomiting, no fever, no chills. Patient was admitted for further evaluation and medical management. Course of hospitalization: On initial exam of the patient, she was found to be withdrawn and not providing any medical history or willing to participate in an interview. Patient was continued with IV hydration, potassium replacement, as well as empiric antibiotics. The following day, the patient was more alert and oriented and reporting having abdominal pain that she attributes to having multiple CT scans over the past year. The patient also reports at the CT scans are the etiology for her medical conditions, stating her system this shutting down. Psychiatry consultation was placed. Patient was started on Seroquel by myself. Patient refused both psychiatric consultation as well as taken any oral medications for psychiatric disorders. Today, the patient continues with stating that her system shutting down. Other symptoms she reports includes loss of appetite, dry mouth, and inability to sleep. This was discussed with the patient that this can be secondary to an underlying psychiatric disorder, for which she denies. She continues to not being specific. Attempts were made to call her Marlon Constantino. Given her abdominal pain and review of her CT scan from recent admission, patient was started on bowel regimen and had multiple bowel movements that were normal according to the primary nurses. At this time, the patient's electrolytes have been repleted. There is no acute illness to treat at this time. She will be discharged home and continued with antibiotic therapy, Macrobid 100 mg p.o. twice a day x5 days. She was instructed to follow up with her PCP in the next earliest appointment. All questions answered. Physical examination General: Alert and Oriented x3. No acute distress. Well-nourished. Eyes: EOMI. Anicteric. HENT: Moist mucous membranes. Lungs: Clear to auscultation bilaterally. No accessory muscle use. Cardiovascular: Regular rate and rhythm. No murmur. No JVD. Abdomen: Soft, non-tender and non-distended. No palpable masses. Extremities: No edema. Non-tender. Skin: No rashes or lesions. Warm. Neurologic: No focal neurological deficits. CN II-XII grossly intact, but not individually tested. Psychiatric: Cooperative. Appropriate mood and affect. Total time spent with patient discussing and formulating plan of care: 35 minutes. This medical document was created using an electronic medical record system with [employer] dictation system. Although this document has been carefully reviewed, there may still be some phonetic and typographical errors. These areas are purely typographical due to imperfections of the software programs, and do not reflect any compromise in the patient's medical care. Consults/Reason for consult Psychiatry: Unspecified psychosis Condition at Discharge: Fair Final Diagnosis/Problems List Abdominal pain secondary to constipation. Hypokalemia Secondary Diagnosis: -metabolic encephalopathy secondary to UTI -? Acute psychosis -hypokalemia -homelessness -history of anxiety, depression Discharge Disposition: Home Discharge Instruct/Medications Diet: Regular Activity: No Restrictions, As Tolerated Follow Up/Referral: Follow up with the PCP in 1-2 weeks Medications: Macrobid 100 mg p.o. b.i.d. x5 days 366 Discharge Statement: "Patient was advised to return to the ER or call 911 if any headaches, dizziness, shortness of breath, chest pain, abdominal pain, bleeding, fevers, or worsening of medical condition. Patient was counseled about treatment plan, medications, possible side effects, patientverbalized understanding. All questions were answered to the best of my ability. This discharge took greater then 30 minutes in planning, reviewing documentation, counseling the patient, and discussing with other team members." ASSESSMENT ASSESSMENT Assessment Abdominal pain secondary to constipation. Hypokalemia Date of Service: Mar 21, 2024 Billing Provider: JOSEPH ZAMORA NP Common Visit Codes: 73825-UMD/OBS DISCH DAY >30min JOSEPH ZAMORA NP Mar 21, 2024 10:50
== END 2024-03-21 14:30 | disposition home or self-care (01) | DRG 640 ==
LOC: EDBD 10:47 → ER 10:47 → TELE 16:24 → TELE-E-ADS 18:43
PROVIDERS: ADMIT Nurse Practitioner Family; ATTEND Nurse Practitioner Acute Care
DX: E87.6 Hypokalemia (principal); G93.41 Metabolic encephalopathy; N30.00 Acute cystitis without hematuria; F23 Brief psychotic disorder; Z59.00 Homelessness unspecified; K59.00 Constipation, unspecified; I10 Essential (primary) hypertension; G47.00 Insomnia, unspecified; Z90.710 Acquired absence of both cervix and uterus; Z88.5 Allergy status to narcotic agent; Z79.899 Other long term (current) drug therapy
CPT/HCPCS: 36415; 80048; 80053; 80307; 80320; 81001; 82270; 83735; 85007; 85025; 85027; 87081; 87086; 93005; 96360; 96361; G0378; J2003; J3480; J3490

== ENCOUNTER 2024-05-21 10:39 | Inpatient (IN) | payer OTHER ==
[~2024-05-21] VITALS: Ht 161.3 cm; Wt 61.1 kg
[~2024-05-21 10:39] MED LIST changes: +GAB100C PO; -MAGN100T6 OR; +NITR-87 PO; +PARO1TAB33 PO; +QUET50TA27 PO
--- NOTE | 2024-05-21 11:11 | ED.PDOC ---
HPI (NEURO) HPI Comments 63y F who presents to the ED for chief complaint of generalized weakness. Pt states she has been having generalized weakness for the past 1 week. Pt states has been having increased weakness since and came to the ED for further evaluation. Pt also states she has been having generalized abdominal pain but otherwise denies any other symptoms. Pt is alert and oriented x 4 and able to answer all questions. Pt has no noted changes in gait, vision or speech. Pt otherwise denies any other symptoms at this time. Chief Complaint: General Weakness Time Seen by MD: 11:08 Primary Care Provider: UNKNOWN Reviewed Notes: Medications, Allergies Information Source: Patient Mode of Arrival: Ambulatory Brought in by: self Severity: Moderate Dizziness/Weakness Severity: Does not affect activitie Headache Severity: None Timing: Days Duration: Since onset Prehospital treatment: None Weakness Location: Generalized Onset: At rest Circumstances: Spontaneous Symptoms: None History of: None Modifying factors: Nothing Associated Signs and Symptoms: Weakness Past Medical History PAST MEDICAL HISTORY: Anxiety, Depression Surgical History: Appendectomy, Hysterectomy SCREEN EXAMINER History: Denies all SCREEN EXAMINER Hx Family History Family History: Reviewed,noncontributory to illness, Unknown Social History Smoker: Non-Smoker Alcohol: Denies ETOH Use Drugs: Denies Drug Use Lives In: Homeless Constitutional: reports: malaise, weakness; denies: chills, diaphoresis, fatigue, fever, sweats, others EENTM: denies: blurred vision, double vision, ear bleeding, ear discharge, ear drainage, ear pain, ear ringing, eye pain, eye redness, hearing loss, mouth pain, mouth swelling, nasal discharge, nose bleeding, nose congestion, nose pain, photophobia, tearing, throat pain, throat swelling, voice changes, others Respiratory: denies: cough, hemoptysis, orthopnea, SOB at rest, shortness of breath, SOB with excertion, stridor, wheezing, others Cardiovascular: denies: chest pain, dizzy spells, diaphoresis, Dyspnea on exertion, edema, irregular heart beat, left arm pain, lightheadedness, palpitations, PND, syncope, others Gastrointestinal: denies: abdomen distended, abdominal pain, blood streaked bowels, constipated, diarrhea, dysphagia, difficulty swallowing, hematemesis, melena, nausea, poor appetite, poor fluid intake, rectal bleeding, rectal pain, vomiting, others Genitourinary: denies: abnormal vagina bleeding, burning, dyspareunia, dysuria, flank pain, frequency, hematuria, incontinence, pain, , vagina discharge, urgency, others Neurological: denies: dizziness, fainting, headache, left sided numbness, left sided weakness, numbness, paresthesia, pre-existing deficit, right sided numbness, right sided weakness, seizure, speech problems, tingling, tremors, weakness, others Musculoskeletal: denies: back pain, gout, joint pain, joint swelling, muscle pain, muscle stiffness, neck pain, others Integumetry: denies: bruises, change in color, change in hair/nails, dryness, laceration, lesions, lumps, rash, wounds, others Allergic/Immunocompromised: denies: Difficulty Healing, Frequent Infections, Hives, Itching, others Hematologic/Lymphatic: denies: anemia, blood clots, easy bleeding, easy bruising, swollen glands, others Endocrine: denies: excessive hunger, excessive sweating, excessive thirst, excessive urination, flushing, intolerance to cold, intolerance to heat, unexplained weight gain, unexplained weight loss, others Psychiatric: denies: anxiety, bipolar disorder, depression, hopeless, panic disorder, schizophrenia, sleepless, suicidal, others All Other Systems: Reviewed and Negative Physical Exam General Appearance: Moderate Distress HEENT: Normal ENT Inspection, Pharynx Normal, TMs Normal Neck: Full Range of Motion, Non-Tender, Normal, Normal Inspection Respiratory: Chest Non-Tender, Lungs Clear, No Accessory Muscle Use, No Respiratory Distress, Normal Breath Sounds Cardiovascular: No Edema, No JVD, No Murmur, No Gallop, Normal Peripheral Pul ses, Regular Rate/Rhythm Breast Exam: Deferred Gastrointestinal: Diffuse, No Organomegaly, No Pulsatile Mass, Normal Bowel Sounds, Soft, Tenderness Genitalia: Deferred Pelvic: Deferred Rectal: Deferred Extremities: No calf tenderness, Normal capillary refill, Normal inspection, Normal range of motion, Non-tender, No pedal edema Musculoskeletal : Apperance: Normal Neurologic: Alert, dentistry professor II-XII nml as Tested, No Motor Deficits, Normal Affect, Normal Mood, No Sensory Deficits Cerebellar Function: Normal Reflexes: Normal Skin: Dry, Normal Color, Warm Lymphatic: No Adenopathy EKG EKG : Pulse Rate (adult): 102 [place]: Normal Cardiac Rhythm: ST Block: None Hypertrophy: LAE ST: Normal Was a procedure done? Was a procedure done?: No Differential Diagnosis (SZ) Seizure: N/A General Weakness: Anemia, Dehydration, Electrolyte imbalance, Encephalopathy, Hypoglycemia, Other (UTI,) X-Ray, Labs, Meds, VS Vital Signs Date Time Temp Pulse Resp B/P (MAP) Pulse Ox O2 Delivery O2 Flow Rate FiO2 05/21/24 17:16 98.6 92 15 114/69 (84) 98 98.6 05/21/24 11:11 102 05/21/24 10:57 102 05/21/24 10:49 98.5 104 18 130/70 (90) 97 Lab Test 05/21/24 11:08 Range/Units White Blood Count 12.1 H 4.4-10.8 10^3/uL Red Blood Count 3.60 L 4.0-5.20 10^6/uL Hemoglobin 12.2 12.2-16.2 g/dL Hematocrit 36.3 36.0-46.0 % Mean Corpuscular Volume 100.6 H 80.0-100.0 fL Mean Corpuscular Hemoglobin 33.7 H 28.0-32.0 pg Mean Corpuscular Hemoglobin Concent 33.5 32.0-36.0 g/dL Red Cell Distribution Width 15.6 H 11.8-14.3 % Platelet Count 319 140-450 10^3/uL Mean Platelet Volume 6.9 6.9-10.8 fL Neutrophils (%) (Auto) 63.7 37.0-80.0 % Lymphocytes (%) (Auto) 26.7 10.0-50.0 % Monocytes (%) (Auto) 6.9 0.0-12.0 % Eosinophils (%) (Auto) 2.3 0.0-7.0 % Basophils (%) (Auto) 0.4 0.0-2.0 % Neutrophils # (Auto) 7.7 1.6-8.6 10 ^3/uL Lymphocytes # (Auto) 3.2 0.4-5.4 10 ^3/uL Monocytes # (Auto) 0.8 0-1.3 10 ^3/uL Eosinophils # (Auto) 0.3 0-0.8 10 ^3/uL Basophils # (Auto) 0.1 0-0.2 10 ^3/uL Nucleated Red Blood Cells 0.0 % Sodium Level 136 136-145 mmol/L Potassium Level 3.9 3.5-5.1 mmol/L Chloride Level 106 98-107 mmol/L Carbon Dioxide Level 22 20-31 mmol/L Anion Gap 8 5-15 Blood Urea Nitrogen 19 9-23 mg/dL Creatinine 0.61 0.550-1.02 mg/dL Glomerular Filtration Rate Calc 100 >90 mL/min BUN/Creatinine Ratio 31.1 H 10.0-20.0 Serum Glucose 100 74-106 mg/dL Calcium Level 9.9 8.7-10.4 mg/dL Total Bilirubin 0.6 0.2-1.0 mg/dL Aspartate Amino Transferase (AST) 8 L 13-40 U/L Alanine Aminotransferase (ALT) 12 7-40 U/L Alkaline Phosphatase 68 46-116 U/L Total Protein 7.1 5.7-8.2 g/dL Albumin 4.6 3.2-4.8 g/dL Current Medications Medications (Trade) Dose Ordered Sig/Francisco Route Start Time Stop Time Status Last Admin Sodium Chloride 1,000 ml @ 60 mls/hr [id number] IV 05/21/24 17:00 05/21/24 17:00 Ceftriaxone Sodium 50 ml @ 100 mls/hr ONCE ONCE IV 05/21/24 17:00 05/21/24 17:29 DC 05/21/24 17:00 Exam: CT CT AB PEL WO CON-NO ORAL OR IV IMPRESSION: 1. Limited by motion. No hydronephrosis. Punctate cortical calcification in the lower pole of the right kidney. Left renal cyst. No definite acute finding. If concern persists consider follow-up exam with contrast. The patient's CBC shows an elevated white blood cell count of 12.1 The chemistry panel is within normal limits The patient was given a 1 L bolus of normal saline The patient was urine test is pending as this time Images Reviewed?: Images reviewed and evaluated by me Time of 1ST Reevaluation: 11:40 Reevaluation 1ST: Unchanged Patient Education/Counseling: Diagnosis, Treatment, Prognosis Family Education/Counseling: No Family Present Additional Information - I reviewed the following notes from patient's past medical encounters: - The following tests were ordered, and results were reviewed by me: (Labs, X- Ray, EKG): cbc, cmp, ua, ct abdomen and pelvis w/o contrast - Additional information was gathered from interviewing the following independent Historian: (Family, Other Providers, EMT): none - I reviewed and agreed with the following test results read by other provider: (X-ray, CT, US): radiologist - I discussed treatments and results with medical personnel and: (consultants, family): none Departure 1 Departure Time of Disposition: 19:07 Impression: Primary Impression: Generalized weakness Disposition: ADMITTED INPATIENT Admit to: Tele Condition: Fair Critical Care Note Critical Care Time?: No Stability Stability form required: No Heart Score Heart Score: Heart Score Response (Comments) Value History N/A 0 EKG N/A 0 Age N/A 0 Risk Factors N/A 0 Troponin N/A 0 Total 0 I personally scribed for SALLIE GARNER MD ([email or web address]) on 05/21/24 at 11:11. Electronically submitted by Mary Carney ([employer]). I personally scribed for SALLIE GARNER MD ([email or web address]) on 05/21/24 at 12:43. Electronically submitted by Mary Carney ([employer]). SALLIE GARNER MD May 21, 2024 11:11
[2024-05-21 11:40] LABS: Basophils # (auto) 0.1 10 ^3/uL (0-0.2); Basophils % (auto) 0.4 % (0.0-2.0); Eosinophils # (auto) 0.3 10 ^3/uL (0-0.8); Eosinophils % (auto) 2.3 % (0.0-7.0); Hematocrit 36.3 % (36.0-46.0); Hemoglobin 12.2 g/dL (12.2-16.2); Lymphocytes # (auto) 3.2 10 ^3/uL (0.4-5.4); Lymphocytes % (auto) 26.7 % (10.0-50.0); Mean Corpuscular Hemoglobin 33.7 pg (28.0-32.0); Mean Corpuscular Hgb Conc. 33.5 g/dL (32.0-36.0); Mean Corpuscular Volume 100.6 fL (80.0-100.0); Monocytes # (auto) 0.8 10 ^3/uL (0-1.3); Monocytes % (auto) 6.9 % (0.0-12.0); Neutrophils # (auto) 7.7 10 ^3/uL (1.6-8.6); Neutrophils % (auto) 63.7 % (37.0-80.0); Platelet Count (auto) 319 10^3/uL (140-450); Red Cell Distribution Width 15.6 % (11.8-14.3); White Blood Cell 12.1 10^3/uL (4.4-10.8)
[2024-05-21 11:51] LABS: Alanine Aminotransferase 12 U/L (7-40); Albumin 4.6 g/dL (3.2-4.8); Alkaline Phosphatase 68 U/L (46-116); BUN/Creatinine Ratio 31.1 (10.0-20.0); Blood Urea Nitrogen 19 mg/dL (9-23); Calcium 9.9 mg/dL (8.7-10.4); Carbon Dioxide 22 mmol/L (20-31); Glucose 100 mg/dL (74-106); Potassium 3.9 mmol/L (3.5-5.1)
[2024-05-21 11:52] LABS: Bilirubin, Total 0.6 mg/dL (0.2-1.0); Total Protein 7.1 g/dL (5.7-8.2)
[2024-05-21 11:53] LABS: Aspartate Aminotransferase 8 U/L (13-40); Sodium 136 mmol/L (136-145)
[2024-05-21 12:05] LABS: Anion Gap 8 (5-15); Chloride 106 mmol/L (98-107)
--- NOTE | 2024-05-21 12:41 | DVH ---
Exam: CT CT AB PEL WO CON-NO ORAL OR IV History: pain Comparison Study: CT CT AB PEL WO CON-NO ORAL OR IV on DOS: 02/25/24, CT CT AB PEL WO CON-NO ORAL OR IV on DOS: 01/23/24 Technique: Multidetector spiral CT of the abdomen and pelvis was performed from lung bases to pubic symphysis. Imaging was performed without IV contrast. Axial, coronal and sagittal multiplanar reform ats were obtained from the axial data set by the technologist. Radiation dose : Abdomen/Pelvis: CTDIvol 5 mGy, DLP 302 mGy*cm. Findings: Evaluation of solid organs is limited due to lack of intravenous contrast use. Lung Bases: No acute or significant lung base finding. Normal heart size. No pleural or pericardial effusion. Liver: The liver is normal in size. No focal lesions. Gallbladder and biliary Tree: Unremarkable Spleen: Unremarkable Pancreas: The pancreas is grossly normal in appearance. Adrenal Glands: Unremarkable Kidneys: Cortical calcification in the lower pole of the right kidney is punctate. Left renal cyst. N o hydronephrosis. Bladder: Grossly unremarkable for degree of distention. Bowel: The stomach is grossly normal in appearance. Small bowel and colon are normal in caliber and d istribution. The appendix is not visualized; however, no secondary findings of acute appendicitis id entified. Ascites: Absent Lymphadenopathy: No mesenteric, retroperitoneal or periportal lymphadenopathy. Abdominal wall and Mesentery: Unremarkable. Vasculature: The visualized abdominal aorta is normal in size and caliber. Evaluation of abdominal a nd pelvic vessels is limited due to lack of intravenous contrast. Pelvic Organs: The uterus is surgically absent. Musculoskeletal: No aggressive focal bony lesions, acute fractures or dislocation. IMPRESSION: 1. Limited by motion. No hydronephrosis. Punctate cortical calcification in the lower pole of the r ight kidney. Left renal cyst. No definite acute finding. If concern persists consider follow-up exa m with contrast. Radiation optimization: All CT scans at this facility use at least one of these dose optimization nati hniques: Automated exposure control mA and/or kV adjustment per patient size (includes targeted exams where dose is matched to clinical indication) or iterative reconstruction. HS:Y
[2024-05-21] MEDS: SODIUM CHLORIDE 0.9% 1,000 ML IV SCH (17:00)
[2024-05-21] MEDS ORDERED: ONDANSETRON HCL 4 MG/2 ML VIAL IV PRN (17:00)
[2024-05-21] MEDS ORDERED: ACETAMINOPHEN 325 MG TAB PO PRN (17:00)
[2024-05-21] MEDS: cefTRIAXone 1GM/50ML D5W 50 ML IV ONE (17:00)
[2024-05-21] MEDS ORDERED: DOCUSATE SOD 100 MG CAP PO PRN (17:00)
--- NOTE | 2024-05-21 19:05 | DVHHP2 ---
History of Present Illness Reason for Visit: Generalized weakness History of Present Illness The patient is a 63-year-old female with past medical history of depression and anxiety who presented to [facility] ED for evaluation of generalized weakness. Patient reports she has been feeling weak for the past one week, generalized abdominal pain, getting worse that prompted this visit. The patient was seen and evaluated in the ED, laboratory data shows WBC 12.1, platelets 319, sodium 136, potassium 3.9, BUN 19, creatinine 0.61, GFR 100, glucose 100. Abdomen/pelvis CT shows no hydronephrosis; punctate cortical calcification in the lower pole of the right kidney, left renal cyst, no definite acute findings. Please see medication orders section in the computer. On my assessment, patient denies chest pain, no headache, no dizziness, no abdominal pain, no diarrhea, no nausea, no vomiting, no fever, no chills. Patient was admitted for further evaluation and medical management. Past Medical History Anxiety, Depression Past Surgical History Appendectomy, Hysterectomy Family History Reviewed, noncontributory to the management of this case. Past Social History The patient lives at home, denies smoking, alcohol or illicit drugs abuse. Review of Systems Constitutional: Yes: Weakness, Malaise; No: Fever, Chills, Sweats, Other Eyes: No: Pain, Vision change, Conjunctivae inflammation, Eyelid inflammation, Other, Redness ENT: No: Ear pain, Ear discharge, Nose pain, Nose discharge, Nose congestion, Mouth pain, Mouth swelling, Throat pain, Throat swelling, Other Respiratory: No: Cough, Dry, Shortness of breath, SOB with excertion, Wheezing, Hemoptysis, Pleuritic Pain, Sputum, Wheezing, Other Cardiovascular: No: Chest Pain, Palpitations, Orthopnea, Paroxysmal Noc. Dyspnea, Edema, Lt Headedness, Other Gastrointestinal: No: Nausea, Vomiting, Abdominal Pain, Diarrhea, Constipation, Melena, Hematochezia, Other Genitourinary: No Dysuria, No Frequency, No Incontinence, No Hematuria, No Retention, No Other Musculoskeletal: No: other, neck pain, shoulder pain, arm pain, back pain, hand pain, leg pain, foot pain Skin: No: Rash, Lesions, Jaundice, Bruising, Other Neurological: No: Weakness, Numbness, Incoordination, Change in speech, Confusion, Seizures, Other Allergies: Coded Allergies: Codeine (Verified Allergy, Intermediate, throat numbness, 02/25/24) Sulfa Antibiotics (Verified Allergy, Intermediate, hives, 02/25/24) Iodine (Verified Allergy, Unknown, 02/25/24) IV contrast pt stated makes her not feel well Medications Current Medications Medications Dose Ordered Sig/Francisco Route Start Time Stop Time Status Last Admin Dose Admin Sodium Chloride 1,000 ml @ 60 mls/hr [id number] IV 05/21/24 17:00 05/21/24 17:00 60 MLS/HR Ondansetron HCl 4 mg Q4HP PRN IV 05/21/24 17:00 Docusate Sodium 100 mg BIDPRN PRN PO 05/21/24 17:00 Acetaminophen 650 mg Q6HP PRN PO 05/21/24 17:00 Ceftriaxone Sodium 50 ml @ 100 mls/hr DAILY@09 IV 05/22/24 09:00 Exam Vital Signs Vital Signs Date Time Temp Pulse Resp B/P (MAP) Pulse Ox O2 Delivery O2 Flow Rate FiO2 05/21/24 17:16 98.6 92 15 114/69 (84) 98 98.6 General Appearance: Alert, Oriented X3, Cooperative, No acute distress HEENT: Atraumatic, PERRLA, EOMI, Mucous membr. moist/pink Respiratory: Clear to auscultation, Normal air movement Cardiovascular: Regular rate, Normal S1, Normal S2, No murmurs Abdominal: Normal bowel sounds, Soft, No tenderness, No hepatospenomegaly, No masses Extremities: No clubbing, No cyanosis, No edema, Normal pulses, No tenderness/swelling Skin: No rashes, No breakdown, No significant lesion Neuro: Normal speech, Normal tone, Sensation intact, Cranial nerves 3-12 NL, Reflexes 2+, Other (Generalized weakness) Psych/Mental Status: Mental status NL, Mood NL Labs/Xrays Labs Test 05/21/24 11:08 Range/Units White Blood Count 12.1 H 4.4-10.8 10^3/uL Red Blood Count 3.60 L 4.0-5.20 10^6/uL Hemoglobin 12.2 12.2-16.2 g/dL Hematocrit 36.3 36.0-46.0 % Mean Corpuscular Volume 100.6 H 80.0-100.0 fL Mean Corpuscular Hemoglobin 33.7 H 28.0-32.0 pg Mean Corpuscular Hemoglobin Concent 33.5 32.0-36.0 g/dL Red Cell Distribution Width 15.6 H 11.8-14.3 % Platelet Count 319 140-450 10^3/uL Mean Platelet Volume 6.9 6.9-10.8 fL Neutrophils (%) (Auto) 63.7 37.0-80.0 % Lymphocytes (%) (Auto) 26.7 10.0-50.0 % Monocytes (%) (Auto) 6.9 0.0-12.0 % Eosinophils (%) (Auto) 2.3 0.0-7.0 % Basophils (%) (Auto) 0.4 0.0-2.0 % Neutrophils # (Auto) 7.7 1.6-8.6 10 ^3/uL Lymphocytes # (Auto) 3.2 0.4-5.4 10 ^3/uL Monocytes # (Auto) 0.8 0-1.3 10 ^3/uL Eosinophils # (Auto) 0.3 0-0.8 10 ^3/uL Basophils # (Auto) 0.1 0-0.2 10 ^3/uL Nucleated Red Blood Cells 0.0 % Sodium Level 136 136-145 mmol/L Potassium Level 3.9 3.5-5.1 mmol/L Chloride Level 106 98-107 mmol/L Carbon Dioxide Level 22 20-31 mmol/L Anion Gap 8 5-15 Blood Urea Nitrogen 19 9-23 mg/dL Creatinine 0.61 0.550-1.02 mg/dL Glomerular Filtration Rate Calc 100 >90 mL/min BUN/Creatinine Ratio 31.1 H 10.0-20.0 Serum Glucose 100 74-106 mg/dL Calcium Level 9.9 8.7-10.4 mg/dL Total Bilirubin 0.6 0.2-1.0 mg/dL Aspartate Amino Transferase (AST) 8 L 13-40 U/L Alanine Aminotransferase (ALT) 12 7-40 U/L Alkaline Phosphatase 68 46-116 U/L Total Protein 7.1 5.7-8.2 g/dL Albumin 4.6 3.2-4.8 g/dL PATIENT: BÁRBARA LYNCH ACCT: [id number] UNIT: [id number] : 1960 LOC: ER ROOM / BED: / AGE / SEX: 63 / F ADM STATUS: REG ER SERVICE 1211 ORDERING PHYSICIAN: SALLIE GARNER MD PROCEDURE(s): ABPL - CT AB PEL WO CON-NO ORAL OR IV REASON: pain ORDER NUMBER(s): [id number], ACCESSION NUMBER(s): [id number] Exam: CT CT AB PEL WO CON-NO ORAL OR IV History: pain Comparison Study: CT CT AB PEL WO CON-NO ORAL OR IV on DOS: 02/25/24, CT CT AB PEL WO CON-NO ORAL OR IV on DOS: 01/23/24 Technique: Multidetector spiral CT of the abdomen and pelvis was performed from lung bases to pubic symphysis. Imaging was performed without IV contrast. Axial, coronal and sagittal multiplanar reformats were obtained from the axial data set by the technologist. Radiation dose: Abdomen/Pelvis: CTDIvol 5 mGy, DLP 302 mGy*cm. Findings: Evaluation of solid organs is limited due to lack of intravenous contrast use. Lung Bases: No acute or significant lung base finding. Normal heart size. No pleural or pericardial effusion. Liver: The liver is normal in size. No focal lesions. Gallbladder and biliary Tree: Unremarkable Spleen: Unremarkable Pancreas: The pancreas is grossly normal in appearance. Adrenal Glands: Unremarkable Kidneys: Cortical calcification in the lower pole of the right kidney is punctate. Left renal cyst. No hydronephrosis. Bladder: Grossly unremarkable for degree of distention. Bowel: The stomach is grossly normal in appearance. Small bowel and colon are normal in caliber and distribution. The appendix is not visualized; however, no secondary findings of acute appendicitis identified. Ascites: Absent Lymphadenopathy: No mesenteric, retroperitoneal or periportal lymphadenopathy. Abdominal wall and Mesentery: Unremarkable. Vasculature: The visualized abdominal aorta is normal in size and caliber. Evaluation of abdominal and pelvic vessels is limited due to lack of intravenous contrast. Pelvic Organs: The uterus is surgically absent. Musculoskeletal: No aggressive focal bony lesions, acute fractures or dislocation. IMPRESSION: 1. Limited by motion. No hydronephrosis. Punctate cortical calcification in the lower pole of the right kidney. Left renal cyst. No definite acute finding. If concern persists consider follow-up exam with contrast. Assessment/Plan Assessment/Plan Generalized weakness Leukocytosis, unspecified Plan [facility]. Breathing treatment 3. Pain control management 4. IV antibiotic management 5. Management of fluids and electrolytes 6. Consultation for hospitalist 7. Diagnostic test abdomen/pelvis CT 8. DVT prophylaxis on SCDs 9. Repeat labs CBC, CMP in a.m. 10. Home medication reviewed and reconciled 11. Continue with current medical management 12. Treatment plan discussed with patient and RN. Patient verbalized understanding. Plan discussed with: Patient, Other (RN) My Orders Orders - ANNA WHITEHEAD DNP Procedure Category Date Status Time Allergies JSUTIN 05/21/24 In Process 16:49 Code Status CODE 05/21/24 Transmitted 16:49 Sodium Chloride 0.9% PHA 05/21/24 In Process 17:00 Oxygen Per Hour RT 05/21/24 Transmitted 16:49 Ondansetron Hcl PHA 05/21/24 In Process (Zofran) 17:00 Docusate Sodium PHA 05/21/24 In Process Capsule (Colace 17:00 Complete Blood Count LAB 05/22/24 Verified 04:00 Comprehensive LAB 05/22/24 Verified Metabolic Panel 04:00 Cardiac DIET 05/21/24 Transmitted Diet-2gna,Lofat,Lochol Dinner Condition: Serious JUSTIN 05/21/24 In Process 16:49 Acetaminophen Tablet PHA 05/21/24 In Process (Tylenol Tablet) 17:00 Bedrest With Bathroom JUSTIN 05/21/24 In Process Privileg 16:49 Sequential JUSTIN 05/21/24 In Process Compression Device Ceftriaxone 1gm/50ml PHA 05/22/24 In Process D5w (Rocephin) 09:00 Problem List: (1) Generalized weakness (2) Leukocytosis, unspecified Date of Service: May 21, 2024 Billing Provider: ANNA WHITEHEAD DNP Common Visit Codes: [id number] INP/OBS CARE (HIGH) ANNA WHITEHEAD DNP May 21, 2024 19:05
[2024-05-21] MEDS ORDERED: MORPHINE SULFATE INJ 2 MG/ml SYRG IV PRN (19:15)
[2024-05-21] MEDS ORDERED: NITROGLYCERIN 0.4 MG SL TAB SL PRN (19:15)
[2024-05-21 19:34] VITALS: O2SAT 98
[2024-05-21 21:00] VITALS: BP 120/64; PULSE 98; RESP 20; TEMP 98.3; O2SAT 99
[2024-05-21 21:05] VITALS: PULSE 98; RESP 20; O2SAT 98
[2024-05-22 01:00] VITALS: BP 103/60; PULSE 98; RESP 20; TEMP 98; O2SAT 98
[2024-05-22 01:46] LABS: Urine Bacteria None Seen /hpf (None Seen)
[2024-05-22 01:59] LABS: Urine Blood Negative /uL (Negative); Urine Clarity Clear (Clear); Urine Color Yellow (Yellow); Urine Protein, UAD Negative (Negative); Urine Specific Gravity 1.027 (1.001-1.035); Urine Squamous Epithelial Cell FEW /hpf (<5); Urine Urobilinogen Normal (Negative); Urine WBC 1 /HPF (0-5)
[2024-05-22 05:00] VITALS: BP 106/58; PULSE 56; RESP 20; TEMP 98.1; O2SAT 98
--- NOTE | 2024-05-22 06:42 | ECG ---
[facility] Test Date: 2024-05-21 Test Time: 10:57:48 Pat Name: BÁRBARA LYNCH Department: ER Room: 0250 A Gender: F Guide Cruise: ELVIRA : 1960 Requested By: SALLIE GARNER Order Number: [id number] Reading MD: Pedrito Kebede Measurements Intervals [place] Rate: 102 P: 19 DE: 134 QRS: 2 QRSD: 73 T: 25 QT: 332 QTc: 433 Interpretive Statements Sinus tachycardia Probable left atrial enlargement Electronically Signed On 05-22-2024 13:21:00 PST by Pedrito Kebede Please click the below link to view image of tracing.
[2024-05-22] MEDS: cefTRIAXone 1GM/50ML D5W 50 ML IV SCH (08:47)
[2024-05-22 09:00] VITALS: BP 117/71; PULSE 85; RESP 16; TEMP 98; O2SAT 98
[2024-05-22 10:52] LABS: Eosinophils # (auto) 0.2 10 ^3/uL (0-0.8); Eosinophils % (auto) 1.9 % (0.0-7.0); Hemoglobin 11.1 g/dL (12.2-16.2); Monocytes # (auto) 0.7 10 ^3/uL (0-1.3); Neutrophils # (auto) 5.2 10 ^3/uL (1.6-8.6); Nucleated Red Blood Cells % 0.1 %; Platelet Count (auto) 252 10^3/uL (140-450); White Blood Cell 9.1 10^3/uL (4.4-10.8)
[2024-05-22 10:56] LABS: Basophils # (auto) 0 10 ^3/uL (0-0.2); Basophils % (auto) 0.2 % (0.0-2.0); Hematocrit 32.2 % (36.0-46.0); Lymphocytes % (auto) 32.6 % (10.0-50.0); Mean Corpuscular Hemoglobin 34.1 pg (28.0-32.0); Mean Corpuscular Hgb Conc. 34.4 g/dL (32.0-36.0); Mean Corpuscular Volume 99.1 fL (80.0-100.0); Neutrophils % (auto) 57.3 % (37.0-80.0); Red Blood Cells 3.25 10^6/uL (4.0-5.20); Red Cell Distribution Width 15.7 % (11.8-14.3)
[2024-05-22 11:25] LABS: Albumin 3.7 g/dL (3.2-4.8); Alkaline Phosphatase 58 U/L (46-116); Anion Gap 9 (5-15); BUN/Creatinine Ratio 30.6 (10.0-20.0); Blood Urea Nitrogen 15 mg/dL (9-23); Calcium 9.3 mg/dL (8.7-10.4); Carbon Dioxide 21 mmol/L (20-31); Glucose 98 mg/dL (74-106); Sodium 137 mmol/L (136-145)
[2024-05-22 11:26] LABS: Bilirubin, Total 0.5 mg/dL (0.2-1.0)
[2024-05-22 11:29] LABS: Alanine Aminotransferase < 9 U/L (7-40); Aspartate Aminotransferase 8 U/L (13-40); Chloride 107 mmol/L (98-107); Potassium 3.4 mmol/L (3.5-5.1)
--- NOTE | 2024-05-22 12:47 | DVHPN2 ---
Subjective Complains of Generalized weakness and abdominal Reviewed: Care Plan, H&P Changes from previous H/P or p: No Changes, Changes General: Per HPI Eyes: No Pain, No Vision change, No Conjunctivae inflammation, No Eyelid inflammation, No Other, No Redness ENT: No Ear pain, No Ear discharge, No Nose pain, No Nose discharge, No Nose congestion, No Mouth pain, No Mouth swelling, No Throat pain, No Throat swelling, No Other Cardiovascular: No Chest Pain, No Palpitations, No Orthopnea, No Paroxysmal Noc. Dyspnea, No Edema, No Lt Headedness, No Other Respiratory: No Cough, No Dry, No Shortness of breath, No SOB with excertion, No Wheezing, No Hemoptysis, No Pleuritic Pain, No Sputum, No Other Gastrointestinal: No Nausea, No Vomiting, No Abdominal Pain, No Diarrhea, No Constipation, No Melena, No Hematochezia, No Other Genitourinary: No Dysuria, No Frequency, No Incontinence, No Hematuria, No Retention, No Other Musculoskeletal: No other, No neck pain, No shoulder pain, No arm pain, No back pain, No hand pain, No leg pain, No foot pain Skin: No Rash, No Lesions, No Jaundice, No Bruising, No Other Objective Vitals Vital Signs Date Time Temp Pulse Resp B/P (MAP) Pulse Ox O2 Delivery O2 Flow Rate FiO2 05/22/24 09:00 98.0 85 16 117/71 (86) 98 98.0 05/22/24 08:00 Room Air* 0 21 Intake/Output Intake and Output 05/22/24 07:00 Intake Total 110 ml Balance 110 ml Intake Oral 0 ml IV Total 110 ml General Appearance: Alert, Oriented X3, Cooperative, No acute distress HEENT: Atraumatic, PERRLA Lungs: Clear to auscultation, Normal air movement Cardiovascular: Normal S1, Normal S2 Abdomen: Normal bowel sounds, Soft, No tenderness Genitourinary: No Apparent Abnormalities Musculoskeletal: Normal sensory function, Normal motor function Psych/Mental Status: Mental status NL, Mood NL Medications Current Medications Medications Dose Ordered Sig/Francisco Route Start Time Stop Time Status Last Admin Dose Admin Ondansetron HCl 4 mg Q4HP PRN IV 05/21/24 17:00 Docusate Sodium 100 mg BIDPRN PRN PO 05/21/24 17:00 Acetaminophen 650 mg Q6HP PRN PO 05/21/24 17:00 Ceftriaxone Sodium 50 ml @ 100 mls/hr DAILY@09 IV 05/22/24 09:00 05/22/24 08:47 100 MLS/HR Nitroglycerin 0.4 mg Q5MINP PRN SL 05/21/24 19:15 Metronidazole 100 ml @ 100 mls/hr Q8HR IV 05/22/24 14:00 UNV Potassium Chloride/Sodium Chloride 1,000 ml @ 75 mls/hr [id number] IV 05/22/24 12:45 UNV Laboratory Results Laboratory Tests 05/22/24 10:14 Chemistry Test 05/22/24 10:14 Albumin 3.7 g/dL (3.2-4.8) Calcium Level 9.3 mg/dL (8.7-10.4) Total Protein 6.0 g/dL (5.7-8.2) LFT Test 05/22/24 10:14 Alanine Aminotransferase (ALT) < 9 U/L (7-40) Alkaline Phosphatase 58 U/L (46-116) Aspartate Amino Transferase (AST) 8 U/L (13-40) L Total Bilirubin 0.5 mg/dL (0.2-1.0) Urinalysis Test 05/22/24 01:00 Urine Color Yellow (Yellow) Urine Clarity Clear (Clear) Urine pH 5.0 (5.0-9.0) Urine Specific [place] 1.027 (1.001-1.035) Urine Protein Negative (Negative) Urine Ketones Negative (Negative) Urine Blood Negative /uL (Negative) Urine Nitrite Negative (Negative) Urine Bilirubin Negative (Negative) Urine Urobilinogen Normal mg/dL (Negative) Urine Leukocyte Esterase Negative /uL (Negative) Urine RBC 1 /hpf (0 - 4) Urine Microscopic WBC 1 /HPF (0-5) Urine Squamous Epithelial Cells Few /hpf (<5) Urine Bacteria None seen /hpf (None Seen) Urine Glucose Normal mg/dL (Normal) Labs and/or images reviewed: Labs reviewed by me, Image(s) reviewed by me Assessment/Plan Assessment/Plan Impression: -Rule out Sepsis -? Schizophrenia -Abdominal Pain Plan: -Continue Rocephin, add Flagyl -Restart Olanzapine -Potassium replacement -GI consult -IVF -Check esr, crp -Repeat labs in am. Plan discussed with: Patient, Spouse, Other (RN) My Orders Orders - JOSEPH ZAMORA NP Procedure Category Date Status Time Drug Screen LAB 05/22/24 Logged 11:26 * Gi Dvh Reporter CONS 05/22/24 Transmitted 12:31 Metronidazole PHA 05/22/24 Logged 500mg/100ml (Flagyl 14:00 Sod Chl 0.9%/ Kcl PHA 05/22/24 Logged 20meq 12:45 Erythrocyte LAB 05/22/24 Logged Sedimentation Rate 12:31 C-Reactive Protein LAB 05/22/24 Logged 12:31 Basic Metabolic Panel LAB 05/23/24 Verified 04:00 Complete Blood Count LAB 05/23/24 Verified 04:00 Date of Service: May 22, 2024 Billing Provider: JOSEPH ZAMORA NP Common Visit Codes: [id number] INP/OBS CARE(HIGH) JOSEPH ZAMORA NP May 22, 2024 12:47
[2024-05-22 13:00] VITALS: BP 103/60; PULSE 82; RESP 16; TEMP 97.6; O2SAT 98
[2024-05-22] MEDS: SOD CHL 0.9%/ KCL 20MEQ 1,000 ML IV SCH (13:05)
--- NOTE | 2024-05-22 13:25 | DVHCONRES ---
Date Seen: May 22, 2024 History of Present Illness 63-year-old female with past medical history of depression and anxiety who presented to [facility] ED for evaluation of bloating, belching and unintentional weight loss. Patient reports she has been having bloating for the past few months associated with abdominal discomfort, generalized fatigue, low appetite and weight loss. Patient is a poor historian, she reports that she had a GI infection 2 months back. No lifetime history of colonoscopy. Lives with , denies smoking/drinking/drug use Patient seen and examined at bedside. CT scan abdomen shows No hydronephrosis. Punctate cortical calcification in the lower pole of the right kidney. Left renal cyst. No definite acute finding. Family History: FH: cancer G8 MOTHER Allergies: Coded Allergies: Codeine (Verified Allergy, Intermediate, throat numbness, 02/25/24) Sulfa Antibiotics (Verified Allergy, Intermediate, hives, 02/25/24) Iodine (Verified Allergy, Unknown, 02/25/24) IV contrast pt stated makes her not feel well Home Meds No Active Prescriptions or Reported Meds Current Medications Current Medications Medications (Trade) Dose Ordered Sig/Francisco Route PRN Reason Start Time Stop Time Status Last Admin Sodium Chloride 1,000 ml @ 60 mls/hr [id number] IV 05/21/24 17:00 05/22/24 12:37 DC 05/22/24 11:41 Ondansetron HCl (Zofran) 4 mg Q4HP PRN IV NAUSEA / VOMITING 05/21/24 17:00 Docusate Sodium (Colace Capsule) 100 mg BIDPRN PRN PO FOR CONSTIPATION 05/21/24 17:00 Acetaminophen (Tylenol Tablet) 650 mg Q6HP PRN PO PAIN SCALE 1-3 OR TEMP>100.4 05/21/24 17:00 Ceftriaxone Sodium 50 ml @ 100 mls/hr DAILY@09 IV 05/22/24 09:00 05/22/24 08:47 Nitroglycerin (Ntrostat Sublingual) 0.4 mg Q5MINP PRN SL FOR CHEST PAIN 05/21/24 19:15 Morphine Sulfate 2 mg Q30M PRN IV FOR CHEST PAIN 05/21/24 19:15 05/21/24 21:59 DC Metronidazole 100 ml @ 100 mls/hr Q8HR IV 05/22/24 14:00 Potassium Chloride/Sodium Chloride 1,000 ml @ 75 mls/hr [id number] IV 05/22/24 12:45 05/22/24 13:05 Vital Signs Vital Signs Date Time Temp Pulse Resp B/P (MAP) Pulse Ox O2 Delivery O2 Flow Rate FiO2 05/22/24 09:00 98.0 85 16 117/71 (86) 98 98.0 05/22/24 08:00 Room Air* 0 21 Physical Exam Patient lying in bed, in no acute distress, looks ill General: Well-built, afebrile, palor, mucosae are moist Cardiovascular: Regular S1 and S2. No murmurs, gallops or rubs. No JVD elevation. No pedal edema Respiratory: Normal B/L air entry on room air. Clear lung sounds on auscultation Abdomen: Soft, epigastric tenderness, nondistended, normoactive bowel sounds, no rebound tenderness, no organomegaly, no masses Genitourinary: Deferred MSK/skin: Mobilizes 4 limbs. Skin is dry and warm Neurological: No motor, no sensitive deficits, normal speech. Pupils are isocoric and reactive. Psych/Mental Status: A/Ox3 Labs/Diagnostic Data Labs Test 05/22/24 10:14 05/22/24 01:00 Range/Units White Blood Count 9.1 4.4-10.8 10^3/uL Red Blood Count 3.25 L 4.0-5.20 10^6/uL Hemoglobin 11.1 L 12.2-16.2 g/dL Hematocrit 32.2 #L 36.0-46.0 % Mean Corpuscular Volume 99.1 80.0-100.0 fL Mean Corpuscular Hemoglobin 34.1 H 28.0-32.0 pg Mean Corpuscular Hemoglobin Concent 34.4 32.0-36.0 g/dL Red Cell Distribution Width 15.7 H 11.8-14.3 % Platelet Count 252 140-450 10^3/uL Mean Platelet Volume 6.7 L 6.9-10.8 fL Neutrophils (%) (Auto) 57.3 37.0-80.0 % Lymphocytes (%) (Auto) 32.6 10.0-50.0 % Monocytes (%) (Auto) 8.0 0.0-12.0 % Eosinophils (%) (Auto) 1.9 0.0-7.0 % Basophils (%) (Auto) 0.2 0.0-2.0 % Neutrophils # (Auto) 5.2 1.6-8.6 10 ^3/uL Lymphocytes # (Auto) 3.0 0.4-5.4 10 ^3/uL Monocytes # (Auto) 0.7 0-1.3 10 ^3/uL Eosinophils # (Auto) 0.2 0-0.8 10 ^3/uL Basophils # (Auto) 0 0-0.2 10 ^3/uL Nucleated Red Blood Cells 0.1 % Sodium Level 137 136-145 mmol/L Potassium Level 3.4 L 3.5-5.1 mmol/L Chloride Level 107 98-107 mmol/L Carbon Dioxide Level 21 20-31 mmol/L Anion Gap 9 5-15 Blood Urea Nitrogen 15 9-23 mg/dL Creatinine 0.49 L 0.550-1.02 mg/dL Glomerular Filtration Rate Calc 106 >90 mL/min BUN/Creatinine Ratio 30.6 H 10.0-20.0 Serum Glucose 98 74-106 mg/dL Calcium Level 9.3 8.7-10.4 mg/dL Total Bilirubin 0.5 0.2-1.0 mg/dL Aspartate Amino Transferase (AST) 8 L 13-40 U/L Alanine Aminotransferase (ALT) < 9 7-40 U/L Alkaline Phosphatase 58 46-116 U/L Total Protein 6.0 5.7-8.2 g/dL Albumin 3.7 3.2-4.8 g/dL Urine Color Yellow Yellow Urine Clarity Clear Clear Urine pH 5.0 5.0-9.0 Urine Specific [place] 1.027 1.001-1.035 Urine Protein Negative Negative Urine Ketones Negative Negative Urine Blood Negative Negative /uL Urine Nitrite Negative Negative Urine Bilirubin Negative Negative Urine Urobilinogen Normal Negative mg/dL Urine Leukocyte Esterase Negative Negative /uL Urine RBC 1 0 - 4 /hpf Urine Microscopic WBC 1 0-5 /HPF Urine Squamous Epithelial Cells Few <5 /hpf Urine Bacteria None seen None Seen /hpf Urine Glucose Normal Normal mg/dL Assessment Abdominal pain, bloating, and unintentional weight loss Leukocytosis Anemia, likely macrocytic Hiatal hernia Grade B linear erosive esophagitis Hypokalemia Left renal cyst History of diverticulosis Hiatal hernia Plan: Given the low appetite, anemia, an initial weight loss, patient will be scheduled for colonoscopy possible for 05/24. Starting bowel prep tomorrow 05/23. Patient underwent EGD 02/2024 shows 2 cm sliding-type hiatal hernia with grade B linear erosive esophagitis. Minimal gastritis. [id number] duodenitis. Biopsy report shows mild chronic inactive gastritis. No dysplasia or malignancy. No intestinal metaplasia. No H pylori seen. Continue Protonix 40 mg daily along with Carafate q.i.d. Follow up with folate/B12 Continue full liquid diet Plan discussed with patient in which all questions have been answered Case discussed with Dr. Olivera Plan discussed with: Patient JELANI RAMOS RESIDENT May 22, 2024 13:25
[2024-05-22 13:49] LABS: Folate (Folic Acid) 20.11 ng/mL (>5.38)
[2024-05-22] MEDS: metroNIDAZOLE 500MG/100ML 100 ML IV SCH (14:03)
[2024-05-22] MEDS: SUCRALFATE 1 GM/10 ML ORAL SUSP GT ONE (14:03)
[2024-05-22] MEDS: PANTOPRAZOLE 40 MG/10 ML VIAL INJ IV ONE (14:03)
[2024-05-22 14:05] LABS: Cannabinoid Screen, Urine Pos (NEGATIVE)
[2024-05-22 14:06] LABS: Amphetamine Screen, Urine Neg (NEGATIVE); Barbiturate Scree,Urine Neg (NEGATIVE); Benzodiazephine Screen, Urine Neg (NEGATIVE); Cocaine Screen, Urine Neg (NEGATIVE); Opiate Scree,Urine Neg (NEGATIVE); Phencyclidine Screen, Urine Neg (NEGATIVE)
--- NOTE | 2024-05-22 14:23 | DVH ---
INDICATION: Rule out gallstone TECHNIQUE: Multiple real-time sonographic images were obtained of the right upper quadrant. COMPARISON: 05/21/24 FINDINGS: The liver demonstrates homogenous echotexture without focal mass lesions. The liver measure s 16 cm. There is no intrahepatic or extrahepatic ductal dilatation. The common duct measures 4 mm . The gallbladder is without evidence of stone or sludge. The gallbladder wall measures 3 mm and is w ithin normal limits. The right kidney measures 10.9 cm. The right kidney is normal in contour, size, and shape. The ech ogenicity is normal. There is no hydronephrosis. The pancreas is not well visualized due to overlying bowel gas. IMPRESSION: No sonographic evidence of gallstones or acute cholecystitis.
[2024-05-22 17:00] VITALS: BP 105/55; PULSE 85; RESP 18; TEMP 98.6; O2SAT 98
[2024-05-22] MEDS: SUCRALFATE 1 GM/10 ML ORAL SUSP GT SCH (17:00)
[2024-05-22] MEDS ORDERED: MIRT1TAB15 (17:19)
[2024-05-22 19:27] LABS: Erythrocyte Sedimentation Rate 16 mm/hr (0-20)
[2024-05-22 21:00] VITALS: BP 112/58; PULSE 99; RESP 20; TEMP 97.5; O2SAT 97
[2024-05-23] MEDS: PANTOPRAZOLE 40 MG/10 ML VIAL INJ IV SCH (08:47)
[2024-05-23 09:00] VITALS: BP 113/59; PULSE 86; RESP 16; TEMP 99; O2SAT 99
[2024-05-23 11:00] LABS: Sodium 138 mmol/L (136-145)
[2024-05-23 11:01] LABS: Anion Gap 8 (5-15); Carbon Dioxide 22 mmol/L (20-31)
[2024-05-23 11:02] LABS: Calcium 9.5 mg/dL (8.7-10.4)
[2024-05-23 11:06] LABS: Glucose 86 mg/dL (74-106)
[2024-05-23 11:07] LABS: BUN/Creatinine Ratio 16.9 (10.0-20.0); Blood Urea Nitrogen 10 mg/dL (9-23)
--- NOTE | 2024-05-23 11:07 | DVHPN2 ---
Progress Note Date Seen: May 23, 2024 Resident Creating Document: JELANI RAMOS RESIDENT Medical Necessity Reason Pt with a Central, PICC or Fol: No Subjective Review of Systems 63-year-old female with past medical history of depression and anxiety who presented to [facility] ED for evaluation of bloating, belching and unintentional weight loss. Patient reports she has been having bloating for the past few months associated with abdominal discomfort, generalized fatigue, low appetite and weight loss. Patient is a poor historian, she reports that she had a GI infection 2 months back. No lifetime history of colonoscopy. Lives with , denies smoking/drinking/drug use Patient seen and examined at bedside. Reports feeling fine. Scheduled for colo noscopy tomorrow. Objective vital signs Vital Sign Date Time Temp Pulse Resp B/P (MAP) Pulse Ox O2 Delivery O2 Flow Rate FiO2 05/23/24 09:00 99.0 86 16 113/59 (77) 99 99.0 05/23/24 08:00 Room Air* 0 21 Total Intake and Output 05/22/24 05/22/24 05/23/24 15:00 23:00 07:00 Intake Total 50 ml 700 ml 200 ml Output Total 2300 ml 650 ml Balance 50 ml -1600 ml -450 ml medications Current Medications Medications Dose Ordered Sig/Francisco Route Start Time Stop Time Status Last Admin Dose Admin Ondansetron HCl 4 mg Q4HP PRN IV 05/21/24 17:00 Docusate Sodium 100 mg BIDPRN PRN PO 05/21/24 17:00 Acetaminophen 650 mg Q6HP PRN PO 05/21/24 17:00 Ceftriaxone Sodium 50 ml @ 100 mls/hr DAILY@09 IV 05/22/24 09:00 05/23/24 08:47 100 MLS/HR Nitroglycerin 0.4 mg Q5MINP PRN SL 05/21/24 19:15 Metronidazole 100 ml @ 100 mls/hr Q8HR IV 05/22/24 14:00 05/22/24 23:20 100 MLS/HR Potassium Chloride/Sodium Chloride 1,000 ml @ 75 mls/hr [id number] IV 05/22/24 12:45 05/23/24 10:23 75 MLS/HR Pantoprazole Sodium 40 mg DAILY IV 05/23/24 10:00 05/23/24 08:47 40 MG Sucralfate 1 gm QID@0600,1130,1700,2200 GT 05/22/24 17:00 05/22/24 23:20 1 GM Examination Patient lying in bed, in no acute distress, looks ill General: Well-built, afebrile, palor, mucosae are moist Cardiovascular: Regular S1 and S2. No murmurs, gallops or rubs. No JVD elevation. No pedal edema Respiratory: Normal B/L air entry on room air. Clear lung sounds on auscultation Abdomen: Soft, epigastric tenderness, nondistended, normoactive bowel sounds, no rebound tenderness, no organomegaly, no masses Genitourinary: Deferred MSK/skin: Mobilizes 4 limbs. Skin is dry and warm Neurological: No motor, no sensitive deficits, normal speech. Pupils are isocoric and reactive. Psych/Mental Status: A/Ox3 laboratory and microbiology Test 05/23/24 10:20 Range/Units Serum Glucose Pending Microbiology Date/Time Source Procedure Growth Status 05/21/24 23:30 Nose MRSA Screen - Final Complete Labs and/or images reviewed: Labs reviewed by me, Image(s) reviewed by me Problem List/Assessment/Plan Problem List/Assessment/Plan Abdominal pain, bloating, and unintentional weight loss Leukocytosis - resolved Anemia, likely macrocytic Hiatal hernia Grade B linear erosive esophagitis Hypokalemia Left renal cyst History of diverticulosis Major depressive disorder Plan: Given the low appetite, anemia, an initial weight loss, scheduled for colonoscopy 05/24. Starting bowel prep. Clear liquid diet. Patient underwent EGD 02/2024 shows 2 cm sliding-type hiatal hernia with grade B linear erosive esophagitis. Minimal gastritis. Vzsk-oh-thirppby duodenitis. Biopsy report shows mild chronic inactive gastritis. No dysplasia or malignancy. No intestinal metaplasia. No H pylori seen. Continue Protonix 40 mg daily along with Carafate q.i.d. One dose of B12 administered IM Continue full liquid diet Plan discussed with patient in which all questions have been answered Case discussed with Dr. Olivera Plan discussed with: Patient My Orders My Orders Orders - JELANI RAMOS RESIDENT Procedure Category Date Status Time Pantoprazole PHA 05/23/24 In Process (Protonix) 10:00 Gallbladder US 05/22/24 Resulted 13:16 Sucralfate Susp PHA 05/22/24 In Process (Carafate Susp) 17:00 JELANI RAMOS RESIDENT May 23, 2024 11:07
[2024-05-23 11:13] LABS: Folate (Folic Acid) 21.2 ng/mL (>5.38)
[2024-05-23 11:15] LABS: Chloride 108 mmol/L (98-107); Potassium 3.4 mmol/L (3.5-5.1)
[2024-05-23] MEDS: GOLYTELY 4L KIT PO ONE (12:01)
[2024-05-23] MEDS: CYANOCOBALAMIN (B-12) 1000 MCG/1 ML VIAL IM ONE (12:02)
[2024-05-23] MEDS ORDERED: OLAN10TA40 (12:31)
[2024-05-23] MEDS ORDERED: PARO1TAB33 (12:31)
--- NOTE | 2024-05-23 12:35 | DVHPN2 ---
Subjective Complains of Generalized weakness and abdominal Reviewed: Care Plan, H&P Changes from previous H/P or p: No Changes General: Per HPI Eyes: No Pain, No Vision change, No Conjunctivae inflammation, No Eyelid inflammation, No Other, No Redness ENT: No Ear pain, No Ear discharge, No Nose pain, No Nose discharge, No Nose congestion, No Mouth pain, No Mouth swelling, No Throat pain, No Throat swelling, No Other Cardiovascular: No Chest Pain, No Palpitations, No Orthopnea, No Paroxysmal Noc. Dyspnea, No Edema, No Lt Headedness, No Other Respiratory: No Cough, No Dry, No Shortness of breath, No SOB with excertion, No Wheezing, No Hemoptysis, No Pleuritic Pain, No Sputum, No Other Gastrointestinal: No Nausea, No Vomiting, No Abdominal Pain, No Diarrhea, No Constipation, No Melena, No Hematochezia, No Other Genitourinary: No Dysuria, No Frequency, No Incontinence, No Hematuria, No Retention, No Other Musculoskeletal: No other, No neck pain, No shoulder pain, No arm pain, No back pain, No hand pain, No leg pain, No foot pain Skin: No Rash, No Lesions, No Jaundice, No Bruising, No Other Objective Vitals Vital Signs Date Time Temp Pulse Resp B/P (MAP) Pulse Ox O2 Delivery O2 Flow Rate FiO2 05/23/24 09:00 99.0 86 16 113/59 (77) 99 99.0 05/23/24 08:00 Room Air* 0 21 Intake/Output Intake and Output 05/23/24 07:00 Intake Total 950 ml Output Total 2950 ml Balance -2000 ml Intake Oral 900 ml IV Total 50 ml Output Urine Total 2950 ml # Bowel Movements 1 General Appearance: Alert, Oriented X3, Cooperative, No acute distress HEENT: Atraumatic, PERRLA Lungs: Clear to auscultation, Normal air movement Cardiovascular: Normal S1, Normal S2 Abdomen: Normal bowel sounds, Soft, No tenderness Genitourinary: No Apparent Abnormalities Musculoskeletal: Normal sensory function, Normal motor function Skin: Dry, Intact Psych/Mental Status: Mental status NL, Mood NL Medications Current Medications Medications Dose Ordered Sig/Francisco Route Start Time Stop Time Status Last Admin Dose Admin Ondansetron HCl 4 mg Q4HP PRN IV 05/21/24 17:00 Docusate Sodium 100 mg BIDPRN PRN PO 05/21/24 17:00 Acetaminophen 650 mg Q6HP PRN PO 05/21/24 17:00 Ceftriaxone Sodium 50 ml @ 100 mls/hr DAILY@09 IV 05/22/24 09:00 05/23/24 08:47 100 MLS/HR Nitroglycerin 0.4 mg Q5MINP PRN SL 05/21/24 19:15 Metronidazole 100 ml @ 100 mls/hr Q8HR IV 05/22/24 14:00 05/22/24 23:20 100 MLS/HR Potassium Chloride/Sodium Chloride 1,000 ml @ 75 mls/hr [id number] IV 05/22/24 12:45 05/23/24 10:23 75 MLS/HR Pantoprazole Sodium 40 mg DAILY IV 05/23/24 10:00 05/23/24 08:47 40 MG Sucralfate 1 gm QID@0600,1130,1700,2200 GT 05/22/24 17:00 05/23/24 12:01 1 GM Laboratory Results Laboratory Tests 05/23/24 10:20 Chemistry Test 05/23/24 10:20 Calcium Level 9.5 mg/dL (8.7-10.4) Urinalysis Test 05/22/24 01:00 Urine Color Yellow (Yellow) Urine Clarity Clear (Clear) Urine pH 5.0 (5.0-9.0) Urine Specific [place] 1.027 (1.001-1.035) Urine Protein Negative (Negative) Urine Ketones Negative (Negative) Urine Blood Negative /uL (Negative) Urine Nitrite Negative (Negative) Urine Bilirubin Negative (Negative) Urine Urobilinogen Normal mg/dL (Negative) Urine Leukocyte Esterase Negative /uL (Negative) Urine RBC 1 /hpf (0 - 4) Urine Microscopic WBC 1 /HPF (0-5) Urine Squamous Epithelial Cells Few /hpf (<5) Urine Bacteria None seen /hpf (None Seen) Urine Glucose Normal mg/dL (Normal) Microbiology Microbiology Date/Time Source Procedure Growth Status 05/21/24 23:30 Nose MRSA Screen - Final Complete Labs and/or images reviewed: Labs reviewed by me, Image(s) reviewed by me Assessment/Plan Assessment/Plan Impression: -Rule out Sepsis -? Schizophrenia -Abdominal Pain Plan: -events: Gallbladder ultrasound negative. GI consultation recommends colonoscopy, scheduled for tomorrow. -restarted on olanzapine and Paxil -repeat potassium 3.4. Continue coverage -recommendations reviewed -Check esr, crp -Repeat labs in am. Total time spent with patient discussing and formulating plan of care: 35 minutes. This medical document was created using an electronic medical record system with [employer] dictation system. Although this document has been carefully reviewed, there may still be some phonetic and typographical errors. These areas are purely typographical due to imperfections of the software programs, and do not reflect any compromise in the patient's medical care. Plan discussed with: Patient, Other (RN) My Orders Orders - JOSEPH ZAMORA NP Procedure Category Date Status Time * Gi [facility] [place] [employer] CONS 05/22/24 Transmitted 12:31 Metronidazole PHA 05/22/24 In Process 500mg/100ml (Flagyl 14:00 Sod Chl 0.9%/ Kcl PHA 05/22/24 In Process 20meq 12:45 Complete Blood Count LAB 05/23/24 Logged 04:00 Obtain Mr From Other ORDERS 05/22/24 Transmitted Facility 12:47 Paroxetine Tablet PHA 05/24/24 Logged (Paxil Tablet) 10:00 Olanzapine Tablet PHA 05/24/24 Logged (Zyprexa Tablet) 10:00 Date of Service: May 23, 2024 Billing Provider: JOSEPH ZAMORA NP Common Visit Codes: [id number] INP/OBS CARE(HIGH) JOSEPH ZAMORA NP May 23, 2024 12:35
[2024-05-23 13:00] VITALS: BP 102/59; PULSE 90; RESP 17; TEMP 98.6; O2SAT 98
[2024-05-23] MEDS: POTASSIUM EFFERVESENT TAB 25 MEQ PO ONE (14:13)
[2024-05-23 17:00] VITALS: BP 118/46; PULSE 87; RESP 17; TEMP 98.2; O2SAT 99
[2024-05-23 21:00] VITALS: BP 102/67; PULSE 91; RESP 20; TEMP 98; O2SAT 99
[2024-05-24 05:00] VITALS: BP 112/62; PULSE 82; RESP 19; TEMP 98.8; O2SAT 99
[2024-05-24] MEDS: MAGNESIUM CITRATE SOLUTION 300 ML BTL PO ONE (05:52)
[2024-05-24] MEDS: GOLYTELY 4L KIT PO ONE (05:52)
--- NOTE | 2024-05-24 06:21 | DVH ---
EXAM: XR Chest, 1 View CLINICAL INDICATION: procedure protocol TECHNIQUE: Frontal view of the chest. COMPARISON: None FINDINGS: LUNGS AND PLEURAL SPACES: Unremarkable. No consolidation. No pneumothorax. HEART: Unremarkable. No cardiomegaly. MEDIASTINUM: Unremarkable. Normal mediastinal contour. BONES/JOINTS: Unremarkable. No acute fracture. OTHER FINDINGS: . None. . . .. IMPRESSION: No acute cardiopulmonary process.
[2024-05-24 09:00] VITALS: BP 108/64; PULSE 83; RESP 17; TEMP 98.6; O2SAT 98
[2024-05-24] MEDS: PARoxetine 20 MG TAB PO SCH (10:00)
[2024-05-24] MEDS: OLANZapine 5 MG TAB PO SCH (10:00)
[2024-05-24] MEDS ORDERED: SODIUM CHLORIDE LOCK 10 ML ONE (12:08)
[2024-05-24 12:12] VITALS: PULSE 89; RESP 15; O2SAT 100
[2024-05-24] MEDS: MIDAZOLAM HCL 5 MG/ML-1ML VIAL ONE (12:18)
[2024-05-24] MEDS: fentaNYL CITRATE 100 MCG/2 ML VL ONE (12:18)
[2024-05-24] MEDS: diphenhdrAMINE HCL 50 MG/1 ML VL ONE (12:18)
[2024-05-24 12:43] VITALS: PULSE 83; RESP 18; O2SAT 100
[2024-05-24 13:45] VITALS: BP 103/54; PULSE 79; RESP 18; TEMP 98.5; O2SAT 99
--- NOTE | 2024-05-24 14:20 | DVHOP2 ---
Operative Report DATE OF OPERATION: 05/24/24 PROCEDURE: Colonoscopy with cold biopsy. PREOPERATIVE INDICATION: The patient is a 63 -year-old female undergoing colonoscopy for evaluation of weakness and abdominal pain POSTOPERATIVE DIAGNOSES: 1. She had a 1-2 mm benign-appearing descending colon polyp that was seen and re moved completely via cold biopsy forceps 2. Trace internal hemorrhoids otherwise completely normal colonoscopy examination up to the cecum and terminal ileum PROCEDURE PERFORMED BY: Randee Olivera M.D. SCOPE: Olympus videocolonoscope. ASA CLASS: 2. PREOPERATIVE MEDICATIONS: Versed 3 mg, Fentanyl 75 mcg, Benadryl 50 mg PROCEDURE IN DETAIL: After obtaining an informed consent, the patient was placed on left lateral decubitus position. She was then sedated with the above medications. A rectal examination was performed that was normal. The colonoscope was then passed through the anus into the rectosigmoid and through the descending, transverse, and ascending colon up to the cecum with visualization of the appendiceal orifice, base of the cecum and the ileocecal valve. The colonoscope was then withdrawn. The distal 5-10 cm of the terminal ileum were normal The colonoscope was then withdrawn with careful visualization of all rick. There was no masses or colitis. There were no clear-cut diverticular openings There was a 1-2 mm benign-appearing descending colon polyp that was seen and removed completely via cold biopsy forceps On retroflexion and straight on view the patient had trace internal hemorrhoids The patient tolerated the procedure well without difficulty. WITHDRAWAL TIME: 7 QUALITY OF THE PREP: [place] Bowel Prep score: 9. COMPLICATIONS : None SPECIMENS: Descending colon polyp DISPOSITION: Transfer back to the floor Stable PLAN: 1. Repeat colonoscopy base on biopsy result likely in 5-7 years 2. Resume GI soft diet 3. Patient is stable from GI point of view an outpatient follow up with GI Services as needed RANDEE OLIVERA MD May 24, 2024 14:20
--- NOTE | 2024-05-24 16:15 | DVHDS2 ---
Discharge Summary Date of Admission May 21, 2024 at 19:03 Date of Discharge: May 24, 2024 Admitting Diagnosis Abdominal pain Labs/Diagnostic Data: Laboratory Results Test 05/24/24 11:00 05/23/24 10:20 05/22/24 17:32 05/22/24 10:14 Sodium Level 138 mmol/L (136-145) Potassium Level 3.4 mmol/L (3.5-5.1) Chloride Level 108 mmol/L (98-107) Carbon Dioxide Level 22 mmol/L (20-31) Anion Gap 8 (5-15) Blood Urea Nitrogen 10 mg/dL (9-23) Creatinine 0.59 mg/dL (0.550-1.02) Glomerular Filtration Rate Calc 101 mL/min (>90) BUN/Creatinine Ratio 16.9 (10.0-20.0) Serum Glucose 86 mg/dL (74-106) Calcium Level 9.5 mg/dL (8.7-10.4) Vitamin B12 Level 322 pg/mL (211-911) Folic Acid 21.20 ng/mL (>5.38) Erythrocyte Sedimentation Rate 16 mm/hr (0-20) Eosinophils (%) (Auto) 1.9 % (0.0-7.0) Eosinophils # (Auto) 0.2 10 ^3/uL (0-0.8) Basophils # (Auto) 0 10 ^3/uL (0-0.2) Nucleated Red Blood Cells 0.1 % Total Bilirubin 0.5 mg/dL (0.2-1.0) Aspartate Amino Transferase (AST) 8 U/L (13-40) Alanine Aminotransferase (ALT) < 9 U/L (7-40) Alkaline Phosphatase 58 U/L (46-116) C-Reactive Protein High Sensitivity 0.02 mg/dL (<1.0) Total Protein 6.0 g/dL (5.7-8.2) Albumin 3.7 g/dL (3.2-4.8) Test 05/22/24 01:00 Urine Color Yellow (Yellow) Urine Clarity Clear (Clear) Urine pH 5.0 (5.0-9.0) Urine Specific [place] 1.027 (1.001-1.035) Urine Protein Negative (Negative) Urine Ketones Negative (Negative) Urine Blood Negative /uL (Negative) Urine Nitrite Negative (Negative) Urine Bilirubin Negative (Negative) Urine Urobilinogen Normal mg/dL (Negative) Urine Leukocyte Esterase Negative /uL (Negative) Urine RBC 1 /hpf (0 - 4) Urine Microscopic WBC 1 /HPF (0-5) Urine Squamous Epithelial Cells Few /hpf (<5) Urine Bacteria None seen /hpf (None Seen) Urine Glucose Normal mg/dL (Normal) Urine Opiates Screen Neg (NEGATIVE) Urine Fentanyl Screen Neg (NEGATIVE) Urine Barbiturates Screen Neg (NEGATIVE) Urine Phencyclidine Screen Neg (NEGATIVE) Urine Amphetamines Screen Neg (NEGATIVE) Urine Benzodiazepines Screen Neg (NEGATIVE) Urine Cocaine Screen Neg (NEGATIVE) Urine Cannabinoids Screen Pos (NEGATIVE) Other Laboratory Tests 05/23/24 10:20 Brief Hx & Hospital Course: History of Present Illness The patient is a 63-year-old female with past medical history of depression and anxiety who presented to [facility] ED for evaluation of generalized weakness. Patient reports she has been feeling weak for the past one week, generalized abdominal pain, getting worse that prompted this visit. The patient was seen and evaluated in the ED, laboratory data shows WBC 12.1, platelets 319, sodium 136, potassium 3.9, BUN 19, creatinine 0.61, GFR 100, glucose 100. Abdomen/pelvis CT shows no hydronephrosis; punctate cortical calcification in the lower pole of the right kidney, left renal cyst, no definite acute findings. Please see medication orders section in the computer. On my assessment, patient denies chest pain, no headache, no dizziness, no abdominal pain, no diarrhea, no nausea, no vomiting, no fever, no chills. Patient was admitted for further evaluation and medical management. Course of hospitalization: Discussion was made with the patient's who states that she was recently seen at [facility] for which at that time she underwent colonoscopy and EGD. Review of the patient's home medications reveals that she was placed on olanzapine, Megace, as well as mirtazapine. Both the patient and were unable to state the diagnosis that was provided at [facility] only providing these three medications as there treatment after performing endoscopy. CT scan of the abdomen and pelvis was essentially negative in this hospital. GI consultation was obtained. Patient underwent colonoscopy today without any acute findings that would lead to the patient having generalized abdominal pain. At this time, patient will have her diet advanced to be discharged home. It was recommended that the patient was stopped using cannabinoid products with medications, with the patient denying that she uses any type of cannabinoid products. Unfortunately, UDS did show that she was positive for cannabinoids. Physical examination General: Alert and Oriented x3. No acute distress. Well-nourished. Eyes: EOMI. Anicteric. HENT: Moist mucous membranes. Lungs: Clear to auscultation bilaterally. No accessory muscle use. Cardiovascular: Regular rate and rhythm. No murmur. No JVD. Abdomen: Soft, non-tender and non-distended. No palpable masses. Extremities: No edema. Non-tender. Skin: No rashes or lesions. Warm. Neurologic: No focal neurological deficits. CN II-XII grossly intact, but not individually tested. Psychiatric: Withdrawn with flat affect Total time spent with patient discussing and formulating plan of care: 35 minutes. This medical document was created using an electronic medical record system with [employer] dictation system. Although this document has been carefully reviewed, there may still be some phonetic and typographical errors. These areas are purely typographical due to imperfections of the software programs, and do not reflect any compromise in the patient's medical care. Consults/Reason for consult Gastroenterology: Abdominal pain Operations or Procedures 05/24/2024: Colonoscopy Condition at Discharge: Guarded Final Diagnosis/Problems List Abdominal pain, questionably secondary to polypharmacy and use of cannabinoids Secondary diagnosis -Ruled out Sepsis -? Schizophrenia -Abdominal Pain Discharge Disposition: Home Discharge Instruct/Medications Diet: Regular Activity: No Restrictions, As Tolerated Follow Up/Referral: Follow up with PCP in 1-2 weeks Medications: Continue all home medications 36 Discharge Statement: "Patient was advised to return to the ER or call 911 if any headaches, dizziness, shortness of breath, chest pain, abdominal pain, bleeding, fevers, or worsening of medical condition. Patient was counseled about treatment plan, medications, possible side effects, patientverbalized understanding. All questions were answered to the best of my ability. This discharge took greater then 30 minutes in planning, reviewing documentation, counseling the patient, and discussing with other team members." ASSESSMENT ASSESSMENT Assessment Abdominal pain, questionably secondary to polypharmacy and use of cannabinoids Date of Service: May 24, 2024 Billing Provider: JOSEPH ZAMORA NP Common Visit Codes: [id number]/OBS DISCH DAY >30min JOSEPH ZAMORA NP May 24, 2024 16:15
[2024-05-24 17:07] VITALS: BP 118/67; PULSE 90; RESP 17; TEMP 98.8; O2SAT 98
== END 2024-05-24 18:44 | disposition home or self-care (01) | DRG 381 ==
LOC: ER 10:39 → OVERFLOW 19:03 → EAST 22:34
PROVIDERS: ADMIT Nurse Practitioner Family; ATTEND Nurse Practitioner Acute Care
PROC: 0DBM8ZX Excision of Descending Colon, Via Natural or Artificial Opening Endoscopic, Diagnostic (ICD-10-PCS; principal; 2024-05-24 12:12)
DX: K22.10 Ulcer of esophagus without bleeding (principal); Z59.00 Homelessness unspecified; D72.829 Elevated white blood cell count, unspecified; N28.1 Cyst of kidney, acquired; F20.9 Schizophrenia, unspecified; E87.6 Hypokalemia; D64.9 Anemia, unspecified; F32.9 Major depressive disorder, single episode, unspecified; K63.5 Polyp of colon; K44.9 Diaphragmatic hernia without obstruction or gangrene; F41.9 Anxiety disorder, unspecified; Z90.710 Acquired absence of both cervix and uterus; Z88.5 Allergy status to narcotic agent; Z88.2 Allergy status to sulfonamides; Z91.041 Radiographic dye allergy status; Z79.899 Other long term (current) drug therapy; F12.90 Cannabis use, unspecified, uncomplicated
CPT/HCPCS: 36415; 45380; 71045; 74176; 76705; 80048; 80053; 80307; 81001; 82607; 82746; 85025; 85652; 86141; 86850; 86900; 86901; 87081; 93005; 96365; G0378; J2250; J2470; J3490

== ENCOUNTER 2024-06-13 13:54 | Emergency (ER) | payer OTHER ==
[~2024-06-13] VITALS: Ht 160 cm; Wt 63.2 kg
[~2024-06-13 13:54] MED LIST changes: -GAB100C PO; +MIRT1TAB15; -NITR-87 PO; +OLAN10TA40; +PARO1TAB33; -PARO1TAB33 PO; -QUET50TA27 PO
[2024-06-13 14:45] LABS: Urine Bacteria None Seen /hpf (None Seen)
[2024-06-13 14:57] LABS: Urine Blood Negative /uL (Negative); Urine Clarity Clear (Clear); Urine Color Yellow (Yellow); Urine Mucus FEW (None Seen); Urine Protein, UAD TRACE (Negative); Urine Specific Gravity 1.032 (1.001-1.035); Urine Squamous Epithelial Cell FEW /hpf (<5); Urine Urobilinogen Normal (Negative); Urine WBC 1 /HPF (0-5); Urine pH 5.5 (5.0-9.0)
[2024-06-13 15:00] LABS: Basophils # (auto) 0.1 10 ^3/uL (0-0.2); Basophils % (auto) 0.5 % (0.0-2.0); Eosinophils # (auto) 0 10 ^3/uL (0-0.8); Eosinophils % (auto) 0.3 % (0.0-7.0); Hematocrit 38.8 % (36.0-46.0); Hemoglobin 12.9 g/dL (12.2-16.2); Lymphocytes # (auto) 3.7 10 ^3/uL (0.4-5.4); Lymphocytes % (auto) 31.4 % (10.0-50.0); Mean Corpuscular Hemoglobin 33.1 pg (28.0-32.0); Mean Corpuscular Hgb Conc. 33.4 g/dL (32.0-36.0); Mean Corpuscular Volume 99.2 fL (80.0-100.0); Monocytes # (auto) 0.8 10 ^3/uL (0-1.3); Monocytes % (auto) 7.2 % (0.0-12.0); Neutrophils # (auto) 7.1 10 ^3/uL (1.6-8.6); Neutrophils % (auto) 60.6 % (37.0-80.0); Platelet Count (auto) 342 10^3/uL (140-450); Red Blood Cells 3.91 10^6/uL (4.0-5.20); Red Cell Distribution Width 13.8 % (11.8-14.3); White Blood Cell 11.7 10^3/uL (4.4-10.8)
--- NOTE | 2024-06-13 15:06 | ED.PDOC ---
History of Present Illness HPI Comments 63 y/o F presents with c/o non-radiating, epigastric abdominal pain, today. Patient is a poor historian and endorses on still having pain following previous ED visit and hospital admission at [facility] on 05/21/24 when she was, initially, seen for generalized weakness and abdominal pain. She denies any nausea, vomiting, diarrhea, urinary symptoms, or other associated symptoms or modifiers at this time. Per [facility] medical record admission discharge summary, GI consultation was obtained and patient underwent colonoscopy without any acute findings that would lead to having abdominal pain and found positive for cannabinoids in her UDS test then. Chief Complaint: Abdominal Pain Time Seen by MD: 14:30 Primary Care Provider: UNKNOWN Reviewed Notes: Nurses Notes, Medications, Allergies Allergies: Coded Allergies: Codeine (Verified Allergy, Intermediate, throat numbness, 02/25/24) Sulfa Antibiotics (Verified Allergy, Intermediate, hives, 02/25/24) Iodine (Verified Allergy, Unknown, 02/25/24) IV contrast pt stated makes her not feel well Home Meds Reported Medications Paroxetine Hydrochloride (Paroxetine Hydrochloride) 20 Mg Tab, 1 DAILY 05/23/24 Olanzapine (OLANZAPINE ODT) 10 Mg Tab, 1 05/23/24 Mirtazapine (Mirtazapine Oral Disintegrating Tablet) 30 Mg Tab, 1 05/22/24 Information Source: Patient Mode of Arrival: Ambulatory Severity: Moderate Timing: Days Duration: Since onset Prehospital treatment: None Past Medical History PAST MEDICAL HISTORY: Anxiety, Depression Surgical History: Appendectomy, Hysterectomy 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 Family History Family History: Reviewed,noncontributory to illness, Unknown Social History Smoker: Non-Smoker Alcohol: Denies ETOH Use Drugs: Denies Drug Use Lives In: Homeless Gastrointestinal: reports: abdominal pain All Other Systems: Reviewed and Negative (negative unless otherwise stated above or in HPI) Physical Exam General Appearance: No Apparent Distress HEENT: Normal ENT Inspection, Pharynx Normal, TMs Normal Neck: Full Range of Motion, Non-Tender, Normal, Normal Inspection Respiratory: Chest Non-Tender, Lungs Clear, No Accessory Muscle Use, No Respiratory Distress, Normal Breath Sounds Cardiovascular: No Edema, No JVD, No Murmur, No Gallop, Normal Peripheral Pulses, Regular Rate/Rhythm Breast Exam: Deferred Gastrointestinal: No Organomegaly, Non Tender, No Pulsatile Mass, Normal Bowel Sounds, Soft Genitalia: Deferred Pelvic: Deferred Rectal: Deferred Extremities: No calf tenderness, Normal capillary refill, Normal inspection, Normal range of motion, Non-tender, No pedal edema Musculoskeletal : Apperance: Normal Neurologic: Alert, gun numberer II-XII nml as Tested, No Motor Deficits, Normal Affect, Normal Mood, No Sensory Deficits Cerebellar Function: Normal Reflexes: Normal Skin: Dry, Normal Color, Warm Lymphatic: No Adenopathy Was a procedure done? Was a procedure done?: No Differential Dx Considerations may include: gastritis, gastroenteritis, viral syndrome, spoiled food, GERD, PUD, acute abdomen X-Ray, Labs, Meds, VS Vital Signs Date Time Temp Pulse Resp B/P (MAP) Pulse Ox O2 Delivery O2 Flow Rate FiO2 06/13/24 14:20 98.9 117 18 113/79 (90) 97 06/13/24 14:08 107 Lab Test 06/13/24 14:43 06/13/24 14:03 Range/Units White Blood Count 11.7 H 4.4-10.8 10^3/uL Red Blood Count 3.91 L 4.0-5.20 10^6/uL Hemoglobin 12.9 12.2-16.2 g/dL Hematocrit 38.8 36.0-46.0 % Mean Corpuscular Volume 99.2 80.0-100.0 fL Mean Corpuscular Hemoglobin 33.1 H 28.0-32.0 pg Mean Corpuscular Hemoglobin Concent 33.4 32.0-36.0 g/dL Red Cell Distribution Width 13.8 11.8-14.3 % Platelet Count 342 140-450 10^3/uL Mean Platelet Volume 6.7 L 6.9-10.8 fL Neutrophils (%) (Auto) 60.6 37.0-80.0 % Lymphocytes (%) (Auto) 31.4 10.0-50.0 % Monocytes (%) (Auto) 7.2 0.0-12.0 % Eosinophils (%) (Auto) 0.3 0.0-7.0 % Basophils (%) (Auto) 0.5 0.0-2.0 % Neutrophils # (Auto) 7.1 1.6-8.6 10 ^3/uL Lymphocytes # (Auto) 3.7 0.4-5.4 10 ^3/uL Monocytes # (Auto) 0.8 0-1.3 10 ^3/uL Eosinophils # (Auto) 0 0-0.8 10 ^3/uL Basophils # (Auto) 0.1 0-0.2 10 ^3/uL Nucleated Red Blood Cells 0.0 % Sodium Level 138 136-145 mmol/L Potassium Level 4.4 3.5-5.1 mmol/L Chloride Level 105 98-107 mmol/L Carbon Dioxide Level 24 20-31 mmol/L Anion Gap 9 5-15 Blood Urea Nitrogen 25 H 9-23 mg/dL Creatinine 0.72 0.550-1.02 mg/dL Glomerular Filtration Rate Calc 94 >90 mL/min BUN/Creatinine Ratio 34.7 H 10.0-20.0 Serum Glucose 108 H 74-106 mg/dL Calcium Level 10.2 8.7-10.4 mg/dL Total Bilirubin 0.3 0.2-1.0 mg/dL Aspartate Amino Transferase (AST) < 8 L 13-40 U/L Alanine Aminotransferase (ALT) 10 7-40 U/L Alkaline Phosphatase 51 46-116 U/L Total Protein 7.2 5.7-8.2 g/dL Albumin 4.7 3.2-4.8 g/dL Lipase 37 12-53 U/L Urine Color Yellow Yellow Urine Clarity Clear Clear Urine pH 5.5 5.0-9.0 Urine Specific [place] 1.032 1.001-1.035 Urine Protein Trace H Negative Urine Ketones Trace Negative Urine Blood Negative Negative /uL Urine Nitrite Negative Negative Urine Bilirubin Negative Negative Urine Urobilinogen Normal Negative mg/dL Urine Leukocyte Esterase Negative Negative /uL Urine RBC None seen 0 - 4 /hpf Urine Microscopic WBC 1 0-5 /HPF Urine Squamous Epithelial Cells Few <5 /hpf Urine Bacteria None seen None Seen /hpf Urine Mucus Few None Seen Urine Glucose Normal Normal mg/dL PROCEDURE(s): ABPL - CT AB PEL WO CON-NO ORAL OR IV IMPRESSION: 1. Limited by motion. No hydronephrosis. Punctate cortical calcification in the lower pole of the right kidney. Left renal cyst. No definite acute finding. If concern persists consider follow-up exam with contrast. The patient's CBC shows a slightly elevated white blood cell count 11.7 The chemistry panel is within normal limits The urine test is negative The patient has been admitted and the patient has been seen for this in the past We are going to discharge the patient have her follow up with her doctor Time of 1ST Reevaluation: 15:00 Reevaluation 1ST: Unchanged Patient Education/Counseling: Diagnosis, Treatment, Prognosis, Need For Follow Up Family Education/Counseling: No Family Present Departure 1 Departure Time of Disposition: 15:24 Impression: Primary Impression: Generalized weakness Disposition: 01 HOME / SELF CARE / HOMELESS Condition: Fair Discharged With: Self Critical Care Note Critical Care Time?: No Stability Stability form required: No Heart Score Heart Score: Heart Score Response (Comments) Value History N/A 0 EKG N/A 0 Age N/A 0 Risk Factors N/A 0 Troponin N/A 0 Total 0 I personally scribed for SALLIE GARNER MD ([email or web address]) on 06/13/24 at 15:06. Electronically submitted by Domo Cutler [email or web address]). SALLIE GARNER MD Jun 13, 2024 15:06
[2024-06-13 15:20] LABS: Alanine Aminotransferase 10 U/L (7-40); Albumin 4.7 g/dL (3.2-4.8); Alkaline Phosphatase 51 U/L (46-116); Anion Gap 9 (5-15); BUN/Creatinine Ratio 34.7 (10.0-20.0); Calcium 10.2 mg/dL (8.7-10.4); Carbon Dioxide 24 mmol/L (20-31); Chloride 105 mmol/L (98-107); Lipase 37 U/L (12-53); Potassium 4.4 mmol/L (3.5-5.1); Sodium 138 mmol/L (136-145)
[2024-06-13 15:21] LABS: Aspartate Aminotransferase < 8 U/L (13-40); Bilirubin, Total 0.3 mg/dL (0.2-1.0); Blood Urea Nitrogen 25 mg/dL (9-23); Glucose 108 mg/dL (74-106); Total Protein 7.2 g/dL (5.7-8.2)
[2024-06-13] MEDS ORDERED: ZOFR4T PO (16:01)
[2024-06-13 16:06] VITALS: BP 146/80; PULSE 109; RESP 16; TEMP 97.8; O2SAT 96
--- NOTE | 2024-06-14 09:21 | ECG ---
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
== END 2024-06-13 23:26 | disposition home or self-care (01) ==
LOC: ER 13:58
DX: R53.1 Weakness (principal); F41.9 Anxiety disorder, unspecified; F32.A Depression, unspecified; Z90.49 Acquired absence of other specified parts of digestive tract; Z90.710 Acquired absence of both cervix and uterus; Z59.00 Homelessness unspecified; Z88.5 Allergy status to narcotic agent; Z88.2 Allergy status to sulfonamides; Z91.040 Latex allergy status; Z79.899 Other long term (current) drug therapy
CPT/HCPCS: 36415; 80053; 81001; 83690; 85025; 93005

== ENCOUNTER 2024-06-22 11:22 | Emergency (ER) | payer OTHER ==
[~2024-06-22] VITALS: Ht 160 cm; Wt 54.5 kg
[~2024-06-22 11:22] MED LIST changes: +ZOFR4T PO
[2024-06-22] MEDS: MAALOX PLUS or MAALOX 30 ML PO ONE (11:53)
[2024-06-22] MEDS: LIDOCAINE VISCOUS 2% 15ML UD PO ONE (11:54)
[2024-06-22] MEDS: DONNATAL 5ml ORAL Elix (BELLADONNA ALK-PHENOBARB) PO ONE (11:55)
[2024-06-22 12:04] LABS: Basophils # (auto) 0 10 ^3/uL (0-0.2); Basophils % (auto) 0.4 % (0.0-2.0); Eosinophils # (auto) 0 10 ^3/uL (0-0.8); Eosinophils % (auto) 0.5 % (0.0-7.0); Hematocrit 39.5 % (36.0-46.0); Hemoglobin 13.2 g/dL (12.2-16.2); Lymphocytes # (auto) 2.7 10 ^3/uL (0.4-5.4); Lymphocytes % (auto) 27.3 % (10.0-50.0); Mean Corpuscular Hemoglobin 33.4 pg (28.0-32.0); Mean Corpuscular Hgb Conc. 33.5 g/dL (32.0-36.0); Mean Corpuscular Volume 99.7 fL (80.0-100.0); Monocytes # (auto) 0.6 10 ^3/uL (0-1.3); Monocytes % (auto) 6.6 % (0.0-12.0); Neutrophils # (auto) 6.4 10 ^3/uL (1.6-8.6); Neutrophils % (auto) 65.2 % (37.0-80.0); Platelet Count (auto) 262 10^3/uL (140-450); Red Blood Cells 3.96 10^6/uL (4.0-5.20); Red Cell Distribution Width 13.7 % (11.8-14.3); White Blood Cell 9.8 10^3/uL (4.4-10.8)
[2024-06-22 12:07] VITALS: PULSE 106; RESP 18; O2SAT 96
--- NOTE | 2024-06-22 12:09 | ED.PDOC ---
GI ASSESSMENT HPI Comments 64-year-old female with history of depression and anxiety brought in by spouse for evaluation of persistent abdominal discomfort. Patient is an extremely difficult historian and fails to answer most questions directly. Patient denies abdominal pain, but states her abdominal discomfort feels like you eat and the food is just sitting there. She denies any nausea, vomiting, diarrhea, constipation or dysuria. On patient's most recent admission she underwent colonoscopy on 05/[address] Olivera with no significant findings. Assessment by Dr. Olivera was that the patient's abdominal discomfort may be secondary to polypharmacy or cannabinoid use (urine drug screen at that time was positive for cannabinoids.) Patient states she has never used cannabinoids. Patient also reportedly underwent EGD at [facility] prior to May 2024 admission here and was prescribed Megace based on the EGD findings. Chief Complaint: Abdominal Pain Time Seen by MD: :27 Primary Care Provider: YUKO Allergies: Coded Allergies: Codeine (Verified Allergy, Intermediate, throat numbness, 02/25/24) Sulfa Antibiotics (Verified Allergy, Intermediate, hives, 02/25/24) Iodine (Verified Allergy, Unknown, 02/25/24) IV contrast pt stated makes her not feel well Home Meds Active Scripts Omeprazole (Omeprazole Dr) 20 Mg Cap, 20 MG PO DAILY, #30 CAP Prov:AB MUSTAFA MD 06/22/24 Ondansetron Odt 4MG Tab (ZOFRAN PO) 4 Mg Tb, 4 MG PO Q8HP PRN for 5 Days, #15 TAB ODT TAB-DISSOLVE IN MOUTH, THEN SWALLOW Prov:SALLIE GARNER MD 06/13/24 Reported Medications Paroxetine Hydrochloride (Paroxetine Hydrochloride) 20 Mg Tab, 1 DAILY 05/23/24 Olanzapine (OLANZAPINE ODT) 10 Mg Tab, 1 05/23/24 Mirtazapine (Mirtazapine Oral Disintegrating Tablet) 30 Mg Tab, 1 05/22/24 Mode of Arrival: Wheelchair Past Medical History PAST MEDICAL HISTORY: Anxiety, Depression Surgical History: Appendectomy, Hysterectomy 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 Family History Family History: Reviewed,noncontributory to illness, Unknown Social History Smoker: Non-Smoker Alcohol: Denies ETOH Use Drugs: Denies Drug Use Lives In: Homeless Unable to Obtain due to: Other (Comprehensive systems review is unobtainable, as the patient fails to answer most questions directly) Physical Exam General Appearance: No Apparent Distress HEENT: PERRL/EOMI, Other (Moist mucous membranes) Neck: Full Range of Motion, Normal Inspection Respiratory: Lungs Clear, No Accessory Muscle Use, No Respiratory Distress, Normal Breath Sounds Cardiovascular: No Edema, No JVD, Regular Rate/Rhythm Breast Exam: Deferred Gastrointestinal: Non Tender, Soft Genitalia: Deferred Pelvic: Deferred Rectal: Deferred Extremities: Normal inspection, Normal range of motion Neurologic: Alert (Oriented x4), Other (Flat affect. Ambulatory. No gross focal deficit.) Cerebellar Function: NOT DONE Reflexes: NOT DONE Skin: Dry, Normal Color, Warm Lymphatic: NOT DONE EKG EKG : Comments Sinus tach, rate 101, normal intervals, normal axis, normal QRS, no ST/T changes. Was a procedure done? Was a procedure done?: No GI differential Dx Differential Diagnosis: Constipation, Gastritis/PUD, Gastroenteritis, Hepatitis, Inflammatory BD, Pancreatitis, UTI, Dehydration, Diabetes/ DKA, Electrolyte Imbalance, Bacterial, Viral, Hypovolemia, Stress Ulcer X-Ray, Labs, Meds, VS Vital Signs Date Time Temp Pulse Resp B/P (MAP) Pulse Ox O2 Delivery O2 Flow Rate FiO2 06/22/24 16:02 98.4 102 16 144/76 (98) 98 98.4 06/22/24 12:07 106 18 96 Room Air* 0 21 06/22/24 12:06 97.2 106 18 126/61 (82) 96 97.2 06/22/24 11:42 101 06/22/24 11:35 98.8 103 18 106/83 (91) 96 Lab Test 06/22/24 12:58 06/22/24 12:08 06/22/24 11:55 06/22/24 11:46 Range/Units Troponin I High Sensitivity 23 25 </=34 ng/L Urine Color Yellow Yellow Urine Clarity Clear Clear Urine pH 6.0 5.0-9.0 Urine Specific [place] 1.025 1.001-1.035 Urine Protein Negative Negative Urine Ketones Negative Negative Urine Blood Negative Negative /uL Urine Nitrite Negative Negative Urine Bilirubin Negative Negative Urine Urobilinogen Normal Negative mg/dL Urine Leukocyte Esterase Negative Negative /uL Urine RBC None seen 0 - 4 /hpf Urine Microscopic WBC < 1 0-5 /HPF Urine Squamous Epithelial Cells Few <5 /hpf Urine Bacteria None seen None Seen /hpf Urine Glucose Normal Normal mg/dL Urine Opiates Screen Neg NEGATIVE Urine Fentanyl Screen Neg NEGATIVE Urine Barbiturates Screen Neg NEGATIVE Urine Phencyclidine Screen Neg NEGATIVE Urine Amphetamines Screen Neg NEGATIVE Urine Benzodiazepines Screen Neg NEGATIVE Urine Cocaine Screen Neg NEGATIVE Urine Cannabinoids Screen Neg NEGATIVE White Blood Count 9.8 4.4-10.8 10^3/uL Red Blood Count 3.96 L 4.0-5.20 10^6/uL Hemoglobin 13.2 12.2-16.2 g/dL Hematocrit 39.5 36.0-46.0 % Mean Corpuscular Volume 99.7 80.0-100.0 fL Mean Corpuscular Hemoglobin 33.4 H 28.0-32.0 pg Mean Corpuscular Hemoglobin Concent 33.5 32.0-36.0 g/dL Red Cell Distribution Width 13.7 11.8-14.3 % Platelet Count 262 140-450 10^3/uL Mean Platelet Volume 6.4 L 6.9-10.8 fL Neutrophils (%) (Auto) 65.2 37.0-80.0 % Lymphocytes (%) (Auto) 27.3 10.0-50.0 % Monocytes (%) (Auto) 6.6 0.0-12.0 % Eosinophils (%) (Auto) 0.5 0.0-7.0 % Basophils (%) (Auto) 0.4 0.0-2.0 % Neutrophils # (Auto) 6.4 1.6-8.6 10 ^3/uL Lymphocytes # (Auto) 2.7 0.4-5.4 10 ^3/uL Monocytes # (Auto) 0.6 0-1.3 10 ^3/uL Eosinophils # (Auto) 0 0-0.8 10 ^3/uL Basophils # (Auto) 0 0-0.2 10 ^3/uL Nucleated Red Blood Cells 0.0 % Sodium Level 140 136-145 mmol/L Potassium Level 3.8 3.5-5.1 mmol/L Chloride Level 107 98-107 mmol/L Carbon Dioxide Level 26 20-31 mmol/L Anion Gap 7 5-15 Blood Urea Nitrogen 21 9-23 mg/dL Creatinine 0.67 0.550-1.02 mg/dL Glomerular Filtration Rate Calc 98 >90 mL/min BUN/Creatinine Ratio 31.3 H 10.0-20.0 Serum Glucose 102 74-106 mg/dL Lactic Acid Level 0.9 0.4-2.0 mmol/L Calcium Level 9.9 8.7-10.4 mg/dL Total Bilirubin 0.5 0.2-1.0 mg/dL Aspartate Amino Transferase (AST) < 8 L 13-40 U/L Alanine Aminotransferase (ALT) 11 7-40 U/L Alkaline Phosphatase 43 L 46-116 U/L Total Protein 6.8 5.7-8.2 g/dL Albumin 4.4 3.2-4.8 g/dL Lipase 36 12-53 U/L POC Glucose 100 70-106 mg/dl Current Medications Medications (Trade) Dose Ordered Sig/Francisco Route Start Time Stop Time Status Last Admin Lidocaine HCl (Xylocaine 2% Viscous) 10 ml ONCE ONCE PO 06/22/24 11:45 06/22/24 11:46 DC 06/22/24 11:54 Belladonna Alkaloids/ Phenobarbital ( Elixir) 10 ml ONCE ONCE PO 06/22/24 11:45 06/22/24 11:46 DC 06/22/24 11:55 Al Hydrox/Mg Hydrox/Simethicone (Maalox Plus) 30 ml ONCE ONCE PO 06/22/24 11:45 06/22/24 11:46 DC 06/22/24 11:53 X-Ray, Labs, Meds, VS Comment 64-year-old female with history of depression and anxiety who underwent colonoscopy on 05/24 here with no significant findings complaining of persistent abdominal discomfort. Vitals remarkable for heart rate 103 Exam unremarkable. No abdominal tenderness to palpation Rhythm strip independently interpreted by me: Sinus tach, rate 103, no ectopy. CBC, CMP, lipase, CBC serial troponins and UA unremarkable for any abnormality of acute significance. Patient treated with the following in the ED: Viscous lidocaine 10 mL, 10 mL, Maalox 30 mL p.o. On re-evaluation, patient he was resting comfortably with stable vitals. She denies any abdominal pain. Abdominal exam is benign. She tolerated p.o. fluids. Patient was recently worked up by GI here, and ED workup is unremarkable. Patient appears stable for discharge with outpatient GI follow up. Patient referred to Dr. Olivera. Rx omeprazole Time of 1ST Reevaluation: 12:07 Reevaluation 1ST: Unchanged Patient Education/Counseling: Diagnosis, Treatment, Need For Follow Up Family Education/Counseling: No Family Present Departure 1 Departure Time of Disposition: 12:08 Impression: Primary Impression: Indigestion Disposition: 01 HOME / SELF CARE / HOMELESS Condition: Stable Referrals: RANDEE OLIVERA MD Additional Instructions: Your blood and urine tests were unremarkable. Follow up with Dr. Olivera, gastroenterology, in 1-2 days. I have prescribed medication for your symptoms. Continue current medications as directed. e-Prescriptions Omeprazole (Omeprazole Dr) 20 Mg Cap 20 MG PO DAILY, #30 CAP Prov: AB MUSTAFA MD 06/22/24 Discharged With: Spouse Critical Care Note Critical Care Time?: No Stability Stability form required: No Heart Score Heart Score: Heart Score Response (Comments) Value History N/A 0 EKG N/A 0 Age N/A 0 Risk Factors N/A 0 Troponin N/A 0 Total 0 AB MUSTAFA MD Jun 22, 2024 12:09
[2024-06-22 12:28] LABS: Alanine Aminotransferase 11 U/L (7-40); Albumin 4.4 g/dL (3.2-4.8); Anion Gap 7 (5-15); BUN/Creatinine Ratio 31.3 (10.0-20.0); Bilirubin, Total 0.5 mg/dL (0.2-1.0); Blood Urea Nitrogen 21 mg/dL (9-23); Calcium 9.9 mg/dL (8.7-10.4); Carbon Dioxide 26 mmol/L (20-31); Chloride 107 mmol/L (98-107); Glucose 102 mg/dL (74-106); Lipase 36 U/L (12-53); Potassium 3.8 mmol/L (3.5-5.1); Sodium 140 mmol/L (136-145); Total Protein 6.8 g/dL (5.7-8.2)
[2024-06-22 12:32] LABS: Alkaline Phosphatase 43 U/L (46-116); Aspartate Aminotransferase < 8 U/L (13-40)
[2024-06-22 12:32] LABS: Urine Bacteria None Seen /hpf (None Seen)
[2024-06-22 12:38] LABS: Urine Blood Negative /uL (Negative); Urine Clarity Clear (Clear); Urine Color Yellow (Yellow); Urine Protein, UAD Negative (Negative); Urine Specific Gravity 1.025 (1.001-1.035); Urine Squamous Epithelial Cell FEW /hpf (<5); Urine Urobilinogen Normal (Negative); Urine WBC < 1 /HPF (0-5)
[2024-06-22 13:14] LABS: Amphetamine Screen, Urine Neg (NEGATIVE); Barbiturate Scree,Urine Neg (NEGATIVE); Benzodiazephine Screen, Urine Neg (NEGATIVE); Cannabinoid Screen, Urine Neg (NEGATIVE); Cocaine Screen, Urine Neg (NEGATIVE); Opiate Scree,Urine Neg (NEGATIVE); Phencyclidine Screen, Urine Neg (NEGATIVE)
[2024-06-22] MEDS ORDERED: OMEP1CAP70 PO (15:47)
[2024-06-22 16:02] VITALS: BP 144/76; PULSE 102; RESP 16; TEMP 98.4; O2SAT 98
--- NOTE | 2024-06-23 04:37 | ECG ---
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
== END 2024-06-22 16:04 | disposition home or self-care (01) ==
LOC: ER 11:22
DX: K30 Functional dyspepsia (principal); F41.9 Anxiety disorder, unspecified; F32.A Depression, unspecified; Z79.899 Other long term (current) drug therapy; Z90.49 Acquired absence of other specified parts of digestive tract; Z90.710 Acquired absence of both cervix and uterus; Z91.041 Radiographic dye allergy status; Z88.2 Allergy status to sulfonamides; Z88.5 Allergy status to narcotic agent; Z88.8 Allergy status to other drugs, medicaments and biological substances
CPT/HCPCS: 36415; 80053; 80307; 81001; 82947; 82962; 83605; 83690; 84484; 85025; 93005

== ENCOUNTER → 2024-06-26 | Outpatient (CLI) | payer OTHER ==
[~2024-06-26] MED LIST changes: +OMEP1CAP70 PO
== END | disposition home or self-care (01) ==
LOC: LAB 12:00
PROVIDERS: ATTEND Internal Medicine Gastroenterology
DX: R10.9 Unspecified abdominal pain (principal)
CPT/HCPCS: 82785; 86003